=== PATIENT | female | born 1945 | race Caucasian/White ===

== ENCOUNTER → 2016-07-27 | Outpatient (CLI) | payer MEDICARE ==
--- NOTE | 2016-07-27 08:57 | Diagnostic Imaging Report ---
EXAMINATION: Bilateral screening mammogram TECHNIQUE: Screening digital mammography was performed bilaterally with a Computer Aided Detection (CAD) system. INDICATION: Screening. PERSONAL HISTORY: No current complaints stated on the questionnaire. COMPARISON: 07/24/2015. FINDINGS: The breasts are composed of scattered fibroglandular densities. There is a slightly more dense appearance of the breasts in the periareolar region. Punctate densities in both axilla are noted, probably related to deodorant use. No suspicious focal mass, architectural distortion, or suspicious cluster of calcification. IMPRESSION: There is evidence of symmetric periareolar skin thickening, slightly more prominent compared to the prior exam. Clinical correlation and a bilateral ultrasound evaluation would be recommended. ACR BI-RADS Category 0: Incomplete. (Needs additional imaging evaluation). Result letter will be mailed to the patient. Note: At least 10% of breast cancer is not imaged by mammography. Dictated by: Dictated on workstation # [id number]
== END ==
LOC: RAD 07:55
PROVIDERS: ATTEND Internal Medicine
DX: Z12.31 Encounter for screening mammogram for malignant neoplasm of breast (principal)
CPT/HCPCS: 77067

== ENCOUNTER → 2016-08-09 | Outpatient (CLI) | payer MEDICARE ==
--- NOTE | 2016-08-09 10:05 | Diagnostic Imaging Report ---
EXAMINATION: Bilateral breast ultrasound. INDICATION: Skin thickening seen in the periareolar region of the breasts on mammography. FINDINGS: The four-quadrants and retroareolar regions of each breast were scanned with no underlying abnormality seen. IMPRESSION: Negative study. Given the symmetry and the findings on mammography as well as the lack of ultrasound abnormal finding, the etiology is likely a benign skin related abnormality. Correlate clinically. ACR BI-RADS Category 1: Negative. Dictated by: Dictated on workstation # [id number]
== END ==
LOC: RAD 07:52
PROVIDERS: ATTEND Nurse Practitioner
DX: R92.8 Other abnormal and inconclusive findings on diagnostic imaging of breast (principal)

== ENCOUNTER → 2017-04-14 | Outpatient (CLI) | payer MEDICARE ==
--- NOTE | 2017-04-14 13:55 | Diagnostic Imaging Report ---
EXAM: PA view of the chest and 3 views of the right ribs. INDICATION: Right rib pain after a fall. FINDINGS: Chest radiograph demonstrates clear hyperinflated lungs with chronic appearing interstitial prominence. The heart size is at the upper limits of normal. There is the suggestion of a calcified granuloma in the left lung base. Three views of the right ribs demonstrate no fracture. IMPRESSION: COPD. No rib fracture is seen. Dictated by: Dictated on workstation # [id number]
--- NOTE | 2017-04-14 14:04 | Diagnostic Imaging Report ---
EXAMINATION: AP view of the pelvis and 2 views of the right hip. INDICATION: Fall. FINDINGS: There is no fracture or dislocation. No radiopaque foreign body. There is moderate degenerative changes at the hip joints and in the SI joints. Prominent vascular calcification seen. IMPRESSION: Degenerative changes. No fracture seen. Dictated by: Dictated on workstation # [id number]
== END ==
LOC: RAD 11:06
PROVIDERS: ATTEND Physician Assistant
DX: M16.11 Unilateral primary osteoarthritis, right hip (principal); J44.9 Chronic obstructive pulmonary disease, unspecified; W19.XXXA Unspecified fall, initial encounter
CPT/HCPCS: 71101

== ENCOUNTER → 2017-07-28 | Outpatient (CLI) | payer MEDICARE ==
--- NOTE | 2017-07-28 11:45 | Diagnostic Imaging Report ---
INDICATION: Routine screening. Comparison is made to prior exam from 07/27/2016 and 07/14/2015. The current study was also evaluated with a Computer Aided Detection (CAD) system. Scattered fibronodular densities are noted bilaterally. Benign calcifications are identified bilaterally. Retroareolar densities appear stable. No mass or malignant appearing microcalcifications are detected. Deodorant artifact in the axilla bilaterally is noted. IMPRESSION: BI-RADS category 2 No mammographic features suspicious for malignancy are identified. ACR BI-RADS Category 2: Benign findings. Result letter will be mailed to the patient. Note: At least 10% of breast cancer is not imaged by mammography. Dictated by: Dictated on workstation # [id number]
== END ==
LOC: RAD 09:46
PROVIDERS: ATTEND Internal Medicine
DX: Z12.31 Encounter for screening mammogram for malignant neoplasm of breast (principal)
CPT/HCPCS: 77067

== ENCOUNTER 2018-07-16 16:29 | Inpatient (IN) | payer MEDICARE ==
[~2018-07-16] VITALS: Ht 152.4 cm; Wt 43.2 kg
--- OUTSIDE RECORDS SUMMARY | 2018-07-16 16:34 | XMS REPORT | Continuity of Care Document ---
Author Author [facility] Organization [facility] Address Unknown Phone Unavailable Allergies Active Description Code Type Severity Reaction Onset Reported/Identified Relationship to Patient Clinical Status Yes No Known Drug Allergies [id number] Drug Allergy Unknown N/A 07/18/2008 Medications There is no data. Problems Date Dx Coded Attending Type Code Diagnosis Diagnosed By 11/17/2009 Ot 792.1 09/06/2014 CAT RAYMUNDO MD Ot V76.12 04/15/2015 Ot V76.12 04/15/2015 Ot V76.12 04/15/2015 Ot V76.12 04/15/2015 LARRY MCPHERSON APRN Ot V76.12 04/15/2015 CAT RAYMUNDO MD Ot V76.12 05/09/2015 LARRY MCPHERSON MARKET ANALYSIS DIRECTOR Ot M16.11 05/09/2015 LARRY MCPHERSON R MARKET ANALYSIS DIRECTOR Ot M47.892 05/09/2015 LARRY MCPHERSON R MARKET ANALYSIS DIRECTOR Ot M85.89 05/09/2015 LARRY MCPHEROSN R MARKET ANALYSIS DIRECTOR Ot S00.03XA 05/15/2015 VIDA LARRY R MARKET ANALYSIS DIRECTOR Ot M16.11 05/15/2015 VIDA LARRY R MARKET ANALYSIS DIRECTOR Ot M47.892 05/15/2015 LARRY MCPHERSON R MARKET ANALYSIS DIRECTOR Ot M85.89 05/15/2015 LARRY MCPHERSON R MARKET ANALYSIS DIRECTOR Ot S00.03XA 07/15/2015 LARRY MCPHERSON R MARKET ANALYSIS DIRECTOR Ot Z12.31 07/24/2015 LARRY MCPHERSON R MARKET ANALYSIS DIRECTOR Ot R92.8 08/06/2015 LARRY MCPHERSON MARKET ANALYSIS DIRECTOR Ot Z12.31 ENCNTR SCREEN MAMMOGRAM FOR MALIGNANT NE 12/02/2015 CAT RAYMUNDO MD Ot D69.6 THROMBOCYTOPENIA, UNSPECIFIED 12/02/2015 CAT RAYMUNDO MD Ot D72.819 DECREASED WHITE BLOOD CELL COUNT, UNSPEC 07/27/2016 Ot V76.12 OTH SCREEN MAMMO-MALIGN NEOPLASM OF MARKELL 07/27/2016 Ot V76.12 OTH SCREEN MAMMO-MALIGN NEOPLASM OF MARKELL 07/27/2016 LARRY MCPHERSON APRN Ot V76.12 OTH SCREEN MAMMO-MALIGN NEOPLASM OF MARKELL 07/27/2016 CAT RAYMUNDO MD Ot V76.12 OTH SCREEN MAMMO-MALIGN NEOPLASM OF [place]KELL 07/27/2016 LARRY MCPHERSON APRN Ot M16.11 UNILATERAL PRIMARY OSTEOARTHRITIS, RIGHT 07/27/2016 LARRY MCPHERSON APRN Ot M47.892 OTHER SPONDYLOSIS, CERVICAL REGION 07/27/2016 LARRY MCPHERSON APRN Ot M85.89 OTH DISRD OF BONE DENSITY AND STRUCTURE, 07/27/2016 LARRY MCPHERSON APRN Ot S00.03XA CONTUSION OF SCALP, INITIAL ENCOUNTER 07/27/2016 LARRY MCPHERSON APRN Ot Z12.31 ENCNTR SCREEN MAMMOGRAM FOR MALIGNANT NE 07/27/2016 LARRY MCPHERSON APRN Ot R92.8 OTH ABN AND INCONCLUSIVE FINDINGS ON DX 07/27/2016 CAT RAYMUNDO MD Ot D69.6 THROMBOCYTOPENIA, UNSPECIFIED 07/27/2016 CAT RAYMUNDO MD Ot D72.819 DECREASED WHITE BLOOD CELL COUNT, UNSPEC 07/27/2016 CAT RAYMUNDO MD Ot Z12.31 ENCNTR SCREEN MAMMOGRAM FOR MALIGNANT NE 07/27/2016 CAT RAYMUNDO MD Ot Z12.31 ENCNTR SCREEN MAMMOGRAM FOR MALIGNANT NE 07/27/2016 CAT RAYMUNDO MD Ot Z12.31 ENCNTR SCREEN MAMMOGRAM FOR MALIGNANT NE 07/27/2016 CAT RAYMUNDO MD Ot Z12.31 ENCNTR SCREEN MAMMOGRAM FOR MALIGNANT NE 07/28/2016 CAT RAYMUNDO MD Ot Z12.31 ENCNTR SCREEN MAMMOGRAM FOR MALIGNANT NE 08/06/2016 Ot V76.12 OTH SCREEN MAMMO-MALIGN NEOPLASM OF MARKELL 08/06/2016 Ot V76.12 OTH SCREEN MAMMO-MALIGN NEOPLASM OF MARKELL 08/06/2016 LARRY MCPHERSON APRN Ot V76.12 OTH SCREEN MAMMO-MALIGN NEOPLASM OF MARKELL 08/06/2016 CAT RAYMUNDO MD Ot V76.12 OTH SCREEN MAMMO-MALIGN NEOPLASM OF MARKELL 08/06/2016 LARRY MCPHERSON APRN Ot M16.11 UNILATERAL PRIMARY OSTEOARTHRITIS, RIGHT 08/06/2016 JB MCPHERSONN R MARKET ANALYSIS DIRECTOR Ot M47.892 OTHER SPONDYLOSIS, CERVICAL REGION 08/06/2016 VIDA LARRY Colmenares MARKET ANALYSIS DIRECTOR Ot M85.89 OTH DISRD OF BONE DENSITY AND STRUCTURE, 08/06/2016 VIDA LARRY Colmenares MARKET ANALYSIS DIRECTOR Ot S00.03XA CONTUSION OF SCALP, INITIAL ENCOUNTER 08/06/2016 LARRY MCPHERSON MARKET ANALYSIS DIRECTOR Ot Z12.31 ENCNTR SCREEN MAMMOGRAM FOR MALIGNANT NE 08/06/2016 LARRY MCPHERSON MARKET ANALYSIS DIRECTOR Ot R92.8 OTH ABN AND INCONCLUSIVE FINDINGS ON DX 08/06/2016 CAT RAYMUNDO MD Ot D69.6 THROMBOCYTOPENIA, UNSPECIFIED 08/06/2016 CAT RAYMUNDO MD Ot D72.819 DECREASED WHITE BLOOD CELL COUNT, UNSPEC 08/06/2016 CAT RAYMUNDO MD, Ot Z12.31 ENCNTR SCREEN MAMMOGRAM FOR MALIGNANT NE 08/06/2016 LARRY MCPHERSON MARKET ANALYSIS DIRECTOR Ot R92.2 INCONCLUSIVE MAMMOGRAM 08/06/2016 LARRY MCPHERSON MARKET ANALYSIS DIRECTOR Ot R92.2 INCONCLUSIVE MAMMOGRAM 08/09/2016 Ot V76.12 OTH SCREEN MAMMO-MALIGN NEOPLASM OF MARKELL 08/09/2016 Ot V76.12 OTH SCREEN MAMMO-MALIGN NEOPLASM OF MARKELL 08/09/2016 LARRY MCPHERSON MARKET ANALYSIS DIRECTOR Ot V76.12 OTH SCREEN MAMMO-MALIGN NEOPLASM OF MARKELL 08/09/2016 CAT RAYMUNDO MD Ot V76.12 OTH SCREEN MAMMO-MALIGN NEOPLASM OF MARKELL 08/09/2016 LARRY MCPHERSON MARKET ANALYSIS DIRECTOR Ot M16.11 UNILATERAL PRIMARY OSTEOARTHRITIS, RIGHT 08/09/2016 LARRY MCPHERSON MARKET ANALYSIS DIRECTOR Ot M47.892 OTHER SPONDYLOSIS, CERVICAL REGION 08/09/2016 LARRY MCPHERSON MARKET ANALYSIS DIRECTOR Ot M85.89 OTH DISRD OF BONE DENSITY AND STRUCTURE, 08/09/2016 LARRY MCPHERSON MARKET ANALYSIS DIRECTOR Ot S00.03XA CONTUSION OF SCALP, INITIAL ENCOUNTER 08/09/2016 LARRY MCPHERSON MARKET ANALYSIS DIRECTOR Ot Z12.31 ENCNTR SCREEN MAMMOGRAM FOR MALIGNANT NE 08/09/2016 LARRY MCPHERSON MARKET ANALYSIS DIRECTOR Ot R92.8 OTH ABN AND INCONCLUSIVE FINDINGS ON DX 08/09/2016 CAT RAYMUNDO MD Ot D69.6 THROMBOCYTOPENIA, UNSPECIFIED 08/09/2016 CAT RAYMUNDO MD, Ot D72.819 DECREASED WHITE BLOOD CELL COUNT, UNSPEC 08/09/2016 CAT RAYMUNDO MD Ot Z12.31 ENCNTR SCREEN MAMMOGRAM FOR MALIGNANT NE 08/09/2016 LARRY MCPHERSON APRN Ot R92.2 INCONCLUSIVE MAMMOGRAM 08/09/2016 LARRY MCPHERSON APRN Ot R92.2 INCONCLUSIVE MAMMOGRAM 08/11/2016 LARRY MCPHERSON APRN Ot R92.8 OTH ABN AND INCONCLUSIVE FINDINGS ON DX 08/17/2016 CAT RAYMUNDO MD Ot Z12.31 ENCNTR SCREEN MAMMOGRAM FOR MALIGNANT NE 09/03/2016 LARRY MCPHERSON APRN Ot R92.8 OTH ABN AND INCONCLUSIVE FINDINGS ON DX 09/14/2016 LARRY MCPHERSON APRN Ot R92.8 OTH ABN AND INCONCLUSIVE FINDINGS ON DX 05/05/2017 ARI PARRA Ot J44.9 CHRONIC OBSTRUCTIVE PULMONARY DISEASE, U 05/05/2017 ARI PARRA Ot M16.11 UNILATERAL PRIMARY OSTEOARTHRITIS, RIGHT 05/05/2017 ARI PARRA Ot W19.XXXA UNSPECIFIED FALL, INITIAL ENCOUNTER 05/11/2017 ARI PARRA Ot J44.9 CHRONIC OBSTRUCTIVE PULMONARY DISEASE, U 05/11/2017 ARI PARRA Ot M16.11 UNILATERAL PRIMARY OSTEOARTHRITIS, RIGHT 05/11/2017 ARI PARRA Ot W19.XXXA UNSPECIFIED FALL, INITIAL ENCOUNTER 07/28/2017 Ot V76.12 OTH SCREEN MAMMO-MALIGN NEOPLASM OF MARKELL 07/28/2017 LARRY MCPHERSON APRN Ot V76.12 OTH SCREEN MAMMO-MALIGN NEOPLASM OF MARKELL 07/28/2017 CAT RAYMUNDO MD Ot V76.12 OTH SCREEN MAMMO-MALIGN NEOPLASM OF MARKELL 07/28/2017 LARRY MCPHERSON APRN Ot M16.11 UNILATERAL PRIMARY OSTEOARTHRITIS, RIGHT 07/28/2017 LARRY MCPHERSON APRN Ot M47.892 OTHER SPONDYLOSIS, CERVICAL REGION 07/28/2017 LARRY MCPHERSON APRN Ot M85.89 OTH DISRD OF BONE DENSITY AND STRUCTURE, 07/28/2017 LARRY MCPHERSON APRN Ot S00.03XA CONTUSION OF SCALP, INITIAL ENCOUNTER 07/28/2017 LARRY MCPHERSON APRN Ot Z12.31 ENCNTR SCREEN MAMMOGRAM FOR MALIGNANT NE 07/28/2017 LARRY MCPHERSON APRN Ot R92.8 OTH ABN AND INCONCLUSIVE FINDINGS ON DX 07/28/2017 CAT RAYMUNDO MD Ot D69.6 THROMBOCYTOPENIA, UNSPECIFIED 07/28/2017 CAT RAYMUNDO MD Ot D72.819 DECREASED WHITE BLOOD CELL COUNT, UNSPEC 07/28/2017 CAT RAYMUNDO MD Ot Z12.31 ENCNTR SCREEN MAMMOGRAM FOR MALIGNANT NE 07/28/2017 LARRY MCPHERSON APRN Ot R92.8 OTH ABN AND INCONCLUSIVE FINDINGS ON DX 07/28/2017 ARI PARRA Ot J44.9 CHRONIC OBSTRUCTIVE PULMONARY DISEASE, U 07/28/2017 ARI PARRA Ot M16.11 UNILATERAL PRIMARY OSTEOARTHRITIS, RIGHT 07/28/2017 ARI PARRA Ot W19.XXXA UNSPECIFIED FALL, INITIAL ENCOUNTER 07/28/2017 CAT RAYMUNDO MD, Ot Z12.31 ENCNTR SCREEN MAMMOGRAM FOR MALIGNANT NE 07/29/2017 CAT RAYMUNDO MD Ot Z12.31 ENCNTR SCREEN MAMMOGRAM FOR MALIGNANT NE 08/17/2017 CAT RAYMUNDO MD, Ot Z12.31 ENCNTR SCREEN MAMMOGRAM FOR MALIGNANT NE Procedures There is no data. Results There is no data. Encounters ACCT No. Visit Date/Time Discharge Status Pt. Type Provider Facility Loc./Unit Complaint [id number] 07/28/2017 09:46:00 07/28/2017 23:59:59 CLS Outpatient CAT RAYMUNDO MD [facility] RAD SCREENING [id number] 04/14/2017 11:06:00 04/14/2017 23:59:59 CLS Outpatient ARI PARRA [facility] RAD R07.82, M25.551 [id number] 08/09/2016 07:52:00 08/09/2016 23:59:59 CLS Outpatient LARRY MCPHERSON APRN [facility] RAD R92.8 [id number] 07/27/2016 07:55:00 07/27/2016 23:59:59 CLS Outpatient CAT RAYMUNDO MD [facility] RAD SCREENING [id number] 11/11/2015 07:19:00 11/11/2015 23:59:59 CLS Outpatient CAT RAYMUNDO MD [facility] LAB THROMBOCYTOPENIA [id number] 07/24/2015 08:41:00 07/24/2015 23:59:59 CLS Outpatient LARRY MCPHERSON APRN [facility] RAD ABNORMAL MAMMO [id number] 07/14/2015 10:19:00 07/14/2015 23:59:59 CLS Outpatient LARRY MCPHERSON MARKET ANALYSIS DIRECTOR [facility] RAD SCREENING [id number] 04/15/2015 15:31:00 04/15/2015 23:59:59 CLS Outpatient LARRY MCPHERSON APRN [facility] RAD POST FALL AT HOME [id number] 07/10/2014 07:01:00 07/10/2014 23:59:59 CLS Outpatient CAT RAYMUNDO MD [facility] RAD SCREENING [id number] 07/09/2013 08:24:00 07/09/2013 23:59:59 CLS Outpatient LARRY MCPHERSON MARKET ANALYSIS DIRECTOR [facility] RAD ROUTINE [id number] 07/06/2012 06:39:00 Document Registration [id number] 07/01/2011 07:04:00 Document Registration [id number] 06/29/2010 06:57:00 Document Registration [id number] 11/17/2009 09:18:00 Document Registration
--- NOTE | 2018-07-16 17:15 | NUR ---
This RN cleaned up patient, copious amounts of stool stuck to patients inner thighs and coccyx. Large wound noted to coccyx, nonblanchable redness with several areas of open skin and black eschars noted within wound. No dressing placed at this time. Will await orders.
[2018-07-16] MEDS ORDERED: LACTATED RINGERS 1,000 ML IV ONE (18:09)
[2018-07-16 18:33] LABS: BASOPHILS % (AUTO) 0 % (0-10); EOSINOPHILS % (AUTO) 0 % (0-10); HEMATOCRIT 43 % (35-52); HEMOGLOBIN 14.6 G/DL (11.5-16.0); LYMPHOCYTES # (AUTO) 0.7 X 10^3 (1.0-4.0); LYMPHOCYTES % (AUTO) 9 % (12-44); MEAN CORPUSCULAR HEMOGLOBIN 35 PG (25-34); MEAN CORPUSCULAR HGB CONC 34 G/DL (32-36); MEAN CORPUSCULAR VOLUME 103 FL (80-99); MEAN PLATELET VOLUME 10.3 FL (7.4-10.4); MONOCYTES # (AUTO) 0.7 X 10^3 (0.0-1.0); MONOCYTES % (AUTO) 9 % (0-12); NEUTROPHILS # (AUTO) 5.8 X 10^3 (1.8-7.8); NEUTROPHILS % (AUTO) 81 % (42-75); PLATELET COUNT 133 10^3/uL (130-400); RED CELL DISTRIBUTION WIDTH 12.9 % (10.0-14.5); WHITE BLOOD COUNT 7.2 10^3/uL (4.3-11.0)
--- NOTE | 2018-07-16 18:35 | ED General ---
General Chief Complaint: General Problems/Pain Stated Complaint: DEHYDRATED,WEIGHT LOSS Nursing Triage Note: TO ED ACCOMPIED BY FRIEND AND SISTER IN LAW. PATIENT HAS NOT BEEN EATING HAS BEEN HAVING WT LOSS. ACCORDING TO FAMILY SHE HAS BEEN SITTING IN CHAIR UNSURE IF SHE HAS BEEN EATING NO ELECTRIC IN HOUSE LG DECUBI ON BUTTOCKS WITH DARK AREA. DRIED BM NOTED WITH DIRTY AREA. WAS FOUND OUT IN RAIN YEASTERDAY CONFUSED AND ADMITTED . [facility] DEPARTMENT WENT OUT YESTERDA TO DO WELL FAIR CHECK AND FOUND PATIENT SITTING IN CHAIR. UNKNOW WHNE SHE HAD ATE LAST. MED SPEC DEPARTMENT REPORT THAT FOOD HAD SPOLIED IN FRIGE. PATIENT UNALBE TO BEAR WT WHEN TRYING TO GET HER TO FROM W/C TO BED. PATIENT CLEANED WITH WIPES. Nursing Sepsis Screen: No Definite Risk Source of Information: Patient (VERY LIMITED HISTORIAN) Exam Limitations: Other ([id number] GIVES SOME LIMITED INFORMATION) History of Present Illness Date Seen by Provider: Jul 16, 2018 Time Seen by Provider: 18:00 Initial Comments PT ARRIVES VIA POV FROM HOME PT'S WAS ADMITTED YESTERDAY--WAS FOUND WANDERING ALONG THE HIGHWAY, IN RAIN, AND EXTREMELY COLD WEATHER ( IN 20'S-30'S OUTSIDE) AND HE WAS CONFUSED. PT'S [id number] INFORMED OF HIS ADMIT, AND WENT TO CHECK ON THIS PT YESTERDAY ( AND [facility]'S DEPT WAS THERE TO DO A WELL BEING CHECK ON PT, AFTER IT WAS DISCOVERED THAT WAS AND WAS AT HOME, WHILE HE WAS IN ER ) AND FOUND HER TO BE EXTREMELY WEAK, SITTING IN A CHAIR, AND LIVING IN EXTREMELY POOR CONDITIONS--NO ELECTRICITY, NO FOOD IN HOME--FOOD IN REFRIGERATOR APPEARED TO HAVE BEEN SPOILED FOR A VERY LONG TIME, EXTREMELY FILTHY LIVING CONDITIONS. IS UNKNOWN WHEN PT LAST ATE ANYTHING. PT TOO WEAK TO STAND, AND COVERED IN FECES IS UNKNOWN WHEN SHE LAST GOT OUT OF THE CHAIR PT HAD REFUSED TO COME TO HOSPITAL YESTERDAY TODAY, HER [id number] CAME TO HER HOUSE AND LITERALLY HAD TO PICK HER UP, AND BROUGHT HER HERE. PT DENIES PAIN ANYWHERE NO CHEST PAIN NO SHORTNESS OF BREATH HAS HAD A SLIGHT COUGH NO NAUSEA/VOMITING/DIARRHEA OR ABDOMINAL PAIN PT DID VOID JUST PRIOR TO COMING TO ER, AND ON DIRECT QUESTIONING, STATES THAT SHE HAS HAD SOME BURNING ON URINATION NO KNOWN FEVER NO PARESTHESIAS OR FOCAL MOTOR DEFICITS--PT WITH GENERALIZED WEAKNESS PT BRINGS IN 3 BOTTLES OF MEDICATIONS, AND CLAIMS THAT SHE HAS BEEN TAKING THEM EVERY DAY, BUT THIS IS NOT VERIFIED PCP: DR. RAYMUNDO--STATES SHE HAS NOT SEEN HIM "IN A LONG TIME" STATES SHE USED TO SEE DR. CORDON FOR NEUROLOGY,BUT NOT FOR A LONG TIME Allergies and Home Medications Allergies Coded Allergies: No Known Drug Allergies (Verified Allergy, Unknown, 07/18/08) Review of Systems Review of Systems Constitutional: weakness Respiratory: cough; No short of breath Cardiovascular: No chest pain Gastrointestinal: no symptoms reported Genitourinary: see HPI Musculoskeletal: no symptoms reported Skin: other (LARGE DECUBITUS ON BUTTOCKS) Psychiatric/Neurological: Denies Numbness, Denies Paresthesia Past Ichzeyn-Cfrkvx-Wtufzo Hx Patient Social History Alcohol Use: Denies Use Recreational Drug Use: No Smoking Status: Current Everyday Smoker (1 PPD) Type Used: Cigarettes Recent Foreign Travel: No Contact w/Someone Who Travel: No Recent Infectious Disease Expo: No Past Medical History Surgeries: Yes (SURGERY FOR TRIGEMINAL NEURALGIA) Tonsillectomy Respiratory: No Cardiac: Yes High Cholesterol, Hypertension Neurological: Yes (RIGHT TRIGMENINAL NEURALGIA) Reproductive Disorders: No Genitourinary: No Gastrointestinal: No Musculoskeletal: No Endocrine: No HEENT: Yes (RIGHT TRIGEMINAL NEURALGIA) Cancer: No Psychosocial: No Integumentary: No Blood Disorders: No Physical Exam Vital Signs Vital Signs - First Documented 07/16/18 16:52 Temp 96.8 Pulse 55 Resp 18 B/P (MAP) 151/87 (108) Pulse Ox 98 O2 Delivery Room Air Capillary Refill : Less Than 3 Seconds Height, Weight, BMI Height: 5'" Weight: 110lbs. oz. 49.769448hi; BMI Method:Estimated General Appearance: Cachetic, Other (VERY UNKEMPT, GENERALIZED WEAKNESS/ LETHARGIC, COVERED IN FECES, FRONTAL HAIR SINGED--PT DENIES ANY FLAME/FIRE AND HAS NO IDEA HOW THAT OCCURRED, DENIES BEING BURNED) HEENT: PERRL/EOMI, Other (ORAL MUCOSA DRY, POOR ORAL HYGIENE) Neck: Full Range of Motion, Normal Inspection, Non Tender, Supple; No Carotid Bruit, No JVD Respiratory: Normal Breath Sounds, No Accessory Muscle Use, No Respiratory Distress Cardiovascular: Regular Rate, Rhythm, No Edema, No JVD, No Murmur, Normal Peripheral Pulses Gastrointestinal: Normal Bowel Sounds, No Organomegaly, No Pulsatile Mass, Non Tender, Soft Back: Normal Inspection, No CVA Tenderness Extremity: Normal Capillary Refill, Normal Inspection, Normal Range of Motion, Non Tender, No Calf Tenderness, No Pedal Edema Neurologic/Psychiatric: Alert, No Motor/Sensory Deficits (BUT WITH GENERALIZED WEAKNESS--EQUAL BILATERALLY. TOO WEAK TO STAND OR EVEN ROLL OVER OR MOVE ON ER CART), Normal Mood/Affect (SMILING, PLEASANT), information assurance manager II-XII Norm as Tested, Other (ORIENTED TO PERSON, PLACE--GROSSLY ORIENTED TO SITUATION, BUT SOMEWHAT CONFUSED TO TIME, VERY POOR MEMORY) Skin: Normal Color, Warm/Dry, Other (LARGE DECUBITUS ON BUTTOCKS--ENTIRE BUTTOCKS AND SACRAL AREA INVOLVED--AT MINIMUM A STAGE 2, AND IS UNSTAGEABLE AT THIS TIME, THERE ARE MULTIPLE AREAS OF NECROTIC TISSUE, WITH DIFFUSE WEEPING. FECES EMBEDDED IN WOUNDS ) Focused Exam Lactate Level 07/16/18 18:30: Lactic Acid Level 1.09 Lactic Acid Level Laboratory Tests Test 07/16/18 18:30 Lactic Acid Level 1.09 MMOL/L (0.50-2.00) Progress/Results/Core Measures Suspected Sepsis Recent Fever Within 48 Hours: No Infection Criteria Present: None New/Unexplained Altered Menta: No Sepsis Screen: No Definite Risk SIRS Temperature:96.8 Pulse: 55 Respiratory Rate: 18 Laboratory Tests 07/16/18 18:00: White Blood Count 7.2 Blood Pressure 151 /87 Mean: 108 07/16/18 18:30: Lactic Acid Level 1.09 Laboratory Tests 07/16/18 18:00: Creatinine 0.85, INR Comment 1.2, Platelet Count 133, Total Bilirubin 0.7 Results/Orders Lab Results Laboratory Tests Test 07/16/18 18:00 07/16/18 18:30 07/16/18 18:35 07/16/18 18:51 Range/Units White Blood Count 7.2 4.3-11.0 10^3/uL Red Blood Count 4.21 L 4.35-5.85 10^6/uL Hemoglobin 14.6 11.5-16.0 G/DL Hematocrit 43 35-52 % Mean Corpuscular Volume 103 H 80-99 FL Mean Corpuscular Hemoglobin 35 H 25-34 PG Mean Corpuscular Hemoglobin Concent 34 32-36 G/DL Red Cell Distribution Width 12.9 10.0-14.5 % Platelet Count 133 130-400 10^3/uL Mean Platelet Volume 10.3 7.4-10.4 FL Neutrophils (%) (Auto) 81 H 42-75 % Lymphocytes (%) (Auto) 9 L 12-44 % Monocytes (%) (Auto) 9 0-12 % Eosinophils (%) (Auto) 0 0-10 % Basophils (%) (Auto) 0 0-10 % Neutrophils # (Auto) 5.8 1.8-7.8 X 10^3 Lymphocytes # (Auto) 0.7 L 1.0-4.0 X 10^3 Monocytes # (Auto) 0.7 0.0-1.0 X 10^3 Eosinophils # (Auto) 0.0 0.0-0.3 10^3/uL Basophils # (Auto) 0.0 0.0-0.1 10^3/uL Prothrombin Time 15.4 H 12.2-14.7 SEC INR Comment 1.2 0.8-1.4 Activated Partial Thromboplast Time 31 24-35 SEC Sodium Level 142 135-145 MMOL/L Potassium Level 3.2 L 3.6-5.0 MMOL/L Chloride Level 102 98-107 MMOL/L Carbon Dioxide Level 24 21-32 MMOL/L Anion Gap 16 H 5-14 MMOL/L Blood Urea Nitrogen 17 7-18 MG/DL Creatinine 0.85 0.60-1.30 MG/DL Estimat Glomerular Filtration Rate > 60 BUN/Creatinine Ratio 20 Glucose Level 96 70-105 MG/DL Calcium Level 9.6 8.5-10.1 MG/DL Corrected Calcium 9.8 8.5-10.1 MG/DL Magnesium Level 2.0 1.8-2.4 MG/DL Total Bilirubin 0.7 0.1-1.0 MG/DL Aspartate Amino Transf (AST/SGOT) 17 5-34 U/L Alanine Aminotransferase (ALT/SGPT) 10 0-55 U/L Alkaline Phosphatase 60 40-136 U/L Total Creatine Kinase 87 29-168 U/L Creatine Kinase MB 4.4 <6.6 NG/ML Troponin I 0.092 H <0.028 NG/ML B-Type Natriuretic Peptide 110.1 H <100.0 PG/ML Total Protein 6.7 6.4-8.2 GM/DL Albumin 3.7 3.2-4.5 GM/DL Amylase Level 34 25-125 U/L Lipase 23 8-78 U/L TSH [place] Testing 2.32 0.35-4.94 UIU/ML Acetaminophen Level < 10 L 10-30 UG/ML Carbamazepine (Tegretol) Level 5.2 4.0-12.0 UG/ML Serum Alcohol < 10 <10 MG/DL Lactic Acid Level 1.09 0.50-2.00 MMOL/L Ammonia 20 11-32 UMOL/L Urine Color DARK YELLOW Urine Clarity SLIGHTLY CLOUDY Urine pH 5 5-9 Urine Specific [place] 1.025 H 1.016-1.022 Urine Protein 2+ H NEGATIVE Urine Glucose (UA) NEGATIVE NEGATIVE Urine Ketones 2+ H NEGATIVE Urine Nitrite NEGATIVE NEGATIVE Urine Bilirubin 1+ H NEGATIVE Urine Urobilinogen 4 H NORMAL MG/DL Urine Leukocyte Esterase 1+ H NEGATIVE Urine RBC (Auto) 1+ H NEGATIVE Urine RBC RARE /HPF Urine WBC RARE /HPF Urine Squamous Epithelial Cells 0-2 /HPF Urine Crystals NONE /LPF Urine Bacteria NEGATIVE /HPF Urine Casts NONE /LPF Urine Mucus SMALL H /LPF Urine Culture Indicated NO Urine Opiates Screen NEGATIVE NEGATIVE Urine Oxycodone Screen NEGATIVE NEGATIVE Urine Methadone Screen NEGATIVE NEGATIVE Urine Propoxyphene Screen NEGATIVE NEGATIVE Urine Barbiturates Screen NEGATIVE NEGATIVE Ur Tricyclic Antidepressants Screen NEGATIVE NEGATIVE Urine Phencyclidine Screen NEGATIVE NEGATIVE Urine Amphetamines Screen NEGATIVE NEGATIVE Urine Methamphetamines Screen NEGATIVE NEGATIVE Urine Benzodiazepines Screen NEGATIVE NEGATIVE Urine Cocaine Screen NEGATIVE NEGATIVE Urine Cannabinoids Screen NEGATIVE NEGATIVE Test 07/16/18 18:57 Range/Units Glucometer 99 70-110 MG/DL Micro Results Microbiology 07/16/18 Influenza Types A,B Antigen (RAMESH) - Final, Complete My Orders Orders - SUE BRITO DO Chest 1 View, Ap/Pa Only (07/16/18 18:09) Pelvis (07/16/18 18:09) Acetaminophen (07/16/18 18:09) Alcohol (07/16/18 18:09) Amylase (07/16/18 18:09) BNP (07/16/18 18:09) Cbc With Automated Diff (07/16/18 18:09) Comprehensive Metabolic Panel (07/16/18 18:09) Creatine Kinase (07/16/18 18:09) Creatine Kinase Mb (07/16/18 18:09) Drug Screen Stat (Urine) (07/16/18 18:09) Lactic Acid Analyzer (07/16/18 18:09) Lipase (07/16/18 18:09) Magnesium (07/16/18 18:09) Protime With Inr (07/16/18 18:09) Partial Thromboplastin Time (07/16/18 18:09) Thyroid Analyzer (07/16/18 18:09) Troponin I (07/16/18 18:09) Ua Culture If Indicated (07/16/18 18:09) Blood Culture (07/16/18 18:09) Influenza A And B Antigens (07/16/18 18:09) Saline Lock/Iv-Start (07/16/18 18:09) Lactated Ringers (Lr 1000 Ml Iv Solution (07/16/18 18:09) Accucheck Stat ONCE (07/16/18 18:09) Saline Lock/Iv-Start (07/16/18 18:09) Ekg Tracing (07/16/18 18:09) Catheter(Urinary) Insert & Ass 03,15 (07/16/18 18:09) Monitor-Rhythm Ecg Trace Only (07/16/18 18:09) Carbamazepine (Tegretol) (07/16/18 18:43) Ammonia (07/16/18 19:03) Ceftriaxone For Iv Use (Rocephin For I (07/16/18 19:30) Ceftriaxone For Im Use (Rocephin For Im (07/16/18 19:38) Medications Given in ED Current Medications Medications Dose Ordered Sig/John Route Start Time Stop Time Status Last Admin Dose Admin Lactated Ringer's 1,000 ml @ 0 mls/hr Q0M ONCE IV 07/16/18 18:09 07/16/18 18:24 DC 07/16/18 18:35 1,000 MLS/HR Vital Signs/I&O 07/16/18 16:52 Temp 96.8 Pulse 55 Resp 18 B/P (MAP) 151/87 (108) Pulse Ox 98 O2 Delivery Room Air Capillary Refill : Less Than 3 Seconds Blood Pressure Mean: 108 ECG Initial ECG Impression Date: Jul 16, 2018 Initial ECG Impression Time: 18:27 Initial ECG Rate: 52 Initial ECG Impression: Nonspecific Changes Diagnostic Imaging Comments CXR--NO ACUTE PROCESS PELVIS XRAY--NO ACUTE PROCESS PER RADIOLOGIST REPORTS @ 1945 Reviewed: Reviewed by Me Departure Communication (Admissions) 1924--SPOKE WITH DR. BAE, HOSPITALIST, ACCEPTS PT FOR ADMIT Impression Primary Impression: Generalized weakness Additional Impressions: Decubitus ulcer of buttock, unstageable Emaciation UTI (urinary tract infection) INABILITIY TO CARE FOR SELF POOR LIVING CONDITIONS SLIGHT ELEVATION OF TROPONIN Mild dehydration Departure-Patient Inst. Referrals: CAT RAYMUNDO MD (PCP/Family) Primary Care Physician SUE BRITO DO Jul 16, 2018 18:35
[2018-07-16 18:39] LABS: INR 1.2 (0.8-1.4); PROTHROMBIN TIME PATIENT 15.4 SEC (12.2-14.7)
[2018-07-16 18:48] LABS: ALANINE AMINOTRANSFERASE 10 U/L (0-55); ALBUMIN 3.7 GM/DL (3.2-4.5); ALKALINE PHOSPHATASE 60 U/L (40-136); AMYLASE 34 U/L (25-125); BILIRUBIN,TOTAL 0.7 MG/DL (0.1-1.0); BUN/CREATININE RATIO 20; CALCIUM 9.6 MG/DL (8.5-10.1); CARBON DIOXIDE 24 MMOL/L (21-32); CHLORIDE 102 MMOL/L (98-107); CREATINE KINASE 87 U/L (29-168); CREATININE SERUM 0.85 MG/DL (0.60-1.30); GFR ESTIMATED > 60; GLUCOSE 96 MG/DL (70-105); LIPASE 23 U/L (8-78); POTASSIUM 3.2 MMOL/L (3.6-5.0); SODIUM 142 MMOL/L (135-145); TOTAL PROTEIN 6.7 GM/DL (6.4-8.2)
[2018-07-16] MEDS ORDERED: AMLO5TAB9 PO (18:48)
[2018-07-16] MEDS ORDERED: CARB200T PO (18:48)
[2018-07-16] MEDS ORDERED: SIMV40TA4 PO (18:48)
[2018-07-16] MEDS ORDERED: ATEN50TA PO (18:48)
[2018-07-16 18:50] LABS: ACETAMINOPHEN < 10 UG/ML (10-30)
[2018-07-16 18:59] LABS: CLARITY,URINE SLIGHTLY CLOUDY; GLUCOSE, URINE (UA) NEGATIVE (NEGATIVE); KETONES,URINE 2+ (NEGATIVE); LEUKOCYTE ESTERASE ,URINE 1+ (NEGATIVE); NITRITE,URINE NEGATIVE (NEGATIVE); PH,URINE 5 (5-9); PROTEIN,URINE 2+ (NEGATIVE); UROBILINOGEN,URINE 4 MG/DL (NORMAL)
[2018-07-16 19:07] LABS: BILIRUBIN,URINE 1+ (NEGATIVE); COLOR,URINE DARK YELLOW
[2018-07-16 19:08] LABS: CREATINE KINASE MB 4.4 NG/ML (<6.6); TSH (THYROID ANALYZER) 2.32 UIU/ML (0.35-4.94)
[2018-07-16 19:09] LABS: BACTERIA,URINE NEGATIVE /HPF; RBC,URINE RARE /HPF; SQUAMOUS EPITHELIAL CELL,UR 0-2 /HPF; WBC,URINE RARE /HPF
[2018-07-16 19:10] LABS: AMPHETAMINE SCREEN, URINE NEGATIVE (NEGATIVE); BARBITURATE SCREEN URINE NEGATIVE (NEGATIVE); BENZODIAZEPINES SCREEN URINE NEGATIVE (NEGATIVE); CANNABINOID SCREEN, URINE NEGATIVE (NEGATIVE); COCAINE SCREEN URINE NEGATIVE (NEGATIVE); METHADONE STAT NEGATIVE (NEGATIVE); METHAMPHETAMINE SCREEN URINE S NEGATIVE (NEGATIVE); OPIATE SCREEN URINE NEGATIVE (NEGATIVE); OXYCODONE STAT NEGATIVE (NEGATIVE); PROPOXYPHENE STAT NEGATIVE (NEGATIVE); TRICYCLIC ANTIDEPRESSANTS SCRE NEGATIVE (NEGATIVE)
[2018-07-16] MEDS ORDERED: cefTRIAXone FOR IV USE 1,000 MG in WATER (STERILE) FOR INJECTION 10 ML IV ONE (19:30)
--- NOTE | 2018-07-16 19:37 | NUR ---
PT RETURNS FROM CT DEPT IN STABLE CONDITION, NO S/S OF DISTRESS
[2018-07-16] MEDS ORDERED: cefTRIAXone 1,000 MG/2.86 ml vial (IM ONLY) ONE (19:38)
--- NOTE | 2018-07-16 19:38 | Diagnostic Imaging Report ---
INDICATION: Fell one week ago. Chest pain A single view of the chest shows normal heart size and vascularity. The lungs are clear. There is no effusion or pneumothorax. There is no acute bony abnormality. IMPRESSION: No acute abnormality is seen. Dictated by: Dictated on workstation # [id number]
--- NOTE | 2018-07-16 19:39 | Diagnostic Imaging Report ---
INDICATION: Fall, pelvic pain A single view of the pelvis shows no fracture, dislocation or other abnormality. IMPRESSION: No acute abnormality is seen. Dictated by: Dictated on workstation # [id number]
--- OUTSIDE RECORDS SUMMARY | 2018-07-16 19:43 | XMS REPORT | Continuity of Care Document ---
Author Author [facility] Organization [facility] Address Unknown Phone Unavailable Allergies Active Description Code Type Severity Reaction Onset Reported/Identified Relationship to Patient Clinical Status Yes No Known Drug Allergies [id number] Drug Allergy Unknown N/A 07/18/2008 Medications There is no data. Problems Date Dx Coded Attending Type Code Diagnosis Diagnosed By 11/17/2009 Ot 792.1 09/06/2014 CAT RAYMUNDO MD Ot V76.12 04/15/2015 Ot V76.12 04/15/2015 Ot V76.12 04/15/2015 Ot V76.12 04/15/2015 LARRY MCPHERSON APRN Ot V76.12 04/15/2015 CAT RAYMUNDO MD Ot V76.12 05/09/2015 LARRY MCPHERSON REAL ESTATE SALESPERSON Ot M16.11 05/09/2015 LARRY MCPHERSON R REAL ESTATE SALESPERSON Ot M47.892 05/09/2015 LARRY MCPHERSON R REAL ESTATE SALESPERSON Ot M85.89 05/09/2015 LARRY MCPHERSON R REAL ESTATE SALESPERSON Ot S00.03XA 05/15/2015 VIDA LARRY R REAL ESTATE SALESPERSON Ot M16.11 05/15/2015 VIDA LARRY R REAL ESTATE SALESPERSON Ot M47.892 05/15/2015 LARRY MCPHERSON R REAL ESTATE SALESPERSON Ot M85.89 05/15/2015 LARRY MCPHERSON R REAL ESTATE SALESPERSON Ot S00.03XA 07/15/2015 LARRY MCPHERSON R REAL ESTATE SALESPERSON Ot Z12.31 07/24/2015 LARRY MCPHERSON R REAL ESTATE SALESPERSON Ot R92.8 08/06/2015 LARRY MCPHERSON REAL ESTATE SALESPERSON Ot Z12.31 ENCNTR SCREEN MAMMOGRAM FOR MALIGNANT [...] PRIMARY OSTEOARTHRITIS, RIGHT 08/06/2016 JB MCPHERSONN R REAL ESTATE SALESPERSON Ot M47.892 OTHER SPONDYLOSIS, CERVICAL REGION 08/06/2016 VIDA LARRY Colmenares REAL ESTATE SALESPERSON Ot M85.89 OTH DISRD OF BONE DENSITY AND STRUCTURE, 08/06/2016 VIDA LARRY Colmenares REAL ESTATE SALESPERSON Ot S00.03XA CONTUSION OF SCALP, INITIAL ENCOUNTER 08/06/2016 LARRY MCPHERSON REAL ESTATE SALESPERSON Ot Z12.31 ENCNTR SCREEN MAMMOGRAM FOR MALIGNANT NE 08/06/2016 LARRY MCPHERSON REAL ESTATE SALESPERSON Ot R92.8 OTH ABN AND INCONCLUSIVE FINDINGS ON DX 08/06/2016 CAT RAYMUNDO MD Ot D69.6 THROMBOCYTOPENIA, UNSPECIFIED 08/06/2016 CAT RAYMUNDO MD Ot D72.819 DECREASED WHITE BLOOD CELL COUNT, UNSPEC 08/06/2016 CAT RAYMUNDO MD, Ot Z12.31 ENCNTR SCREEN MAMMOGRAM FOR MALIGNANT NE 08/06/2016 LARRY MCPHERSON REAL ESTATE SALESPERSON Ot R92.2 INCONCLUSIVE MAMMOGRAM 08/06/2016 LARRY MCPHERSON REAL ESTATE SALESPERSON Ot R92.2 INCONCLUSIVE MAMMOGRAM 08/09/2016 Ot V76.12 OTH SCREEN MAMMO-MALIGN NEOPLASM OF [place] 08/09/2016 Ot V76.12 OTH SCREEN MAMMO-MALIGN NEOPLASM OF [place] 08/09/2016 LARRY MCPHERSON REAL ESTATE SALESPERSON Ot V76.12 OTH SCREEN MAMMO-MALIGN NEOPLASM OF [place] 08/09/2016 CAT RAYMUNDO MD Ot V76.12 OTH SCREEN MAMMO-MALIGN NEOPLASM OF [place] 08/09/2016 LARRY MCPHERSON REAL ESTATE SALESPERSON Ot M16.11 UNILATERAL PRIMARY OSTEOARTHRITIS, RIGHT 08/09/2016 LARRY MCPHERSON REAL ESTATE SALESPERSON Ot M47.892 OTHER SPONDYLOSIS, CERVICAL REGION 08/09/2016 LARRY MCPHERSON REAL ESTATE SALESPERSON Ot M85.89 OTH DISRD OF BONE DENSITY AND STRUCTURE, 08/09/2016 LARRY MCPHERSON REAL ESTATE SALESPERSON Ot S00.03XA CONTUSION OF SCALP, INITIAL ENCOUNTER 08/09/2016 LARRY MCPHERSON REAL ESTATE SALESPERSON Ot Z12.31 ENCNTR SCREEN MAMMOGRAM FOR MALIGNANT NE 08/09/2016 LARRY MCPHERSON REAL ESTATE SALESPERSON Ot R92.8 OTH ABN AND INCONCLUSIVE FINDINGS [...] Status Pt. Type Provider Facility Loc./Unit Complaint [id number] 07/28/2017 09:46:00 07/28/2017 23:59:59 CLS Outpatient CAT RAYMUNDO MD [facility] RAD SCREENING [id number] 04/14/2017 11:06:00 04/14/2017 23:59:59 CLS Outpatient ARI PARRA [facility] RAD R07.82, M25.551 [id number] 08/09/2016 07:52:00 08/09/2016 23:59:59 CLS Outpatient LARRY MCPHERSON APRN [facility] RAD R92.8 [id number] 07/27/2016 07:55:00 07/27/2016 23:59:59 CLS Outpatient CAT RAYMUNDO MD [facility] RAD SCREENING [id number] 11/11/2015 07:19:00 11/11/2015 23:59:59 CLS Outpatient CAT RAYMUNDO MD [facility] LAB THROMBOCYTOPENIA [id number] 07/24/2015 08:41:00 07/24/2015 23:59:59 CLS Outpatient LARRY MCPHERSON APRN [facility] RAD ABNORMAL MAMMO [id number] 07/14/2015 10:19:00 07/14/2015 23:59:59 CLS Outpatient LARRY MCPHERSON REAL ESTATE SALESPERSON [facility] RAD SCREENING [id number] 04/15/2015 15:31:00 04/15/2015 23:59:59 CLS Outpatient LARRY MCPHERSON APRN [facility] RAD POST FALL AT HOME [id number] 07/10/2014 07:01:00 07/10/2014 23:59:59 CLS Outpatient CAT RAYMUNDO MD [facility] RAD SCREENING [id number] 07/09/2013 08:24:00 07/09/2013 23:59:59 CLS Outpatient LARRY MCPHERSON REAL ESTATE SALESPERSON [facility] RAD ROUTINE [id number] 07/06/2012 06:39:00 Document Registration [id number] 07/01/2011 07:04:00 Document Registration [id number] 06/29/2010 06:57:00 Document Registration [id number] 11/17/2009 09:18:00 Document Registration
[2018-07-16 20:35] VITALS: BP 116/93
[2018-07-16] MEDS ORDERED: KETOROLAC 15 MG/ML VIAL IV ONE (20:45)
[2018-07-16 20:53] VITALS: BP 147/85
[2018-07-16] MEDS ORDERED: CATHETER FLUSH 10 ML SYR IV PRN (21:00)
[2018-07-16] MEDS: D5 1/2 NS W/KCL 20 MEQ/L 1,000 ML IV SCH (21:00)
[2018-07-16 22:00] VITALS: BP 145/92
[2018-07-17] VITALS (8 sets, daily range): BP systolic 118–168; BP diastolic 69–108
[2018-07-17] MEDS: CATHETER FLUSH 10 ML SYR IV SCH ×4 (01:46→22:10)
[2018-07-17 04:08] LABS: BASOPHILS % (AUTO) 0 % (0-10); EOSINOPHILS % (AUTO) 0 % (0-10); HEMATOCRIT 39 % (35-52); LYMPHOCYTES # (AUTO) 0.8 X 10^3 (1.0-4.0); LYMPHOCYTES % (AUTO) 11 % (12-44); MEAN CORPUSCULAR HEMOGLOBIN 35 PG (25-34); MEAN CORPUSCULAR HGB CONC 34 G/DL (32-36); MEAN CORPUSCULAR VOLUME 104 FL (80-99); MEAN PLATELET VOLUME 9.8 FL (7.4-10.4); MONOCYTES # (AUTO) 0.7 X 10^3 (0.0-1.0); MONOCYTES % (AUTO) 10 % (0-12); NEUTROPHILS # (AUTO) 5.4 X 10^3 (1.8-7.8); NEUTROPHILS % (AUTO) 78 % (42-75); PLATELET COUNT 119 10^3/uL (130-400); RED CELL DISTRIBUTION WIDTH 12.7 % (10.0-14.5); WHITE BLOOD COUNT 6.9 10^3/uL (4.3-11.0)
[2018-07-17 04:19] LABS: ALANINE AMINOTRANSFERASE 7 U/L (0-55); ALBUMIN 3.1 GM/DL (3.2-4.5); ALKALINE PHOSPHATASE 48 U/L (40-136); BILIRUBIN,TOTAL 0.4 MG/DL (0.1-1.0); BUN/CREATININE RATIO 18; CALCIUM 8.9 MG/DL (8.5-10.1); CARBON DIOXIDE 22 MMOL/L (21-32); CHLORIDE 104 MMOL/L (98-107); CREATININE SERUM 0.85 MG/DL (0.60-1.30); GFR ESTIMATED > 60; GLUCOSE 149 MG/DL (70-105); POTASSIUM 3.4 MMOL/L (3.6-5.0); SODIUM 138 MMOL/L (135-145); TOTAL PROTEIN 5.7 GM/DL (6.4-8.2)
[2018-07-17] MEDS: D5 1/2 NS W/KCL 20 MEQ/L 1,000 ML IV SCH ×3 (05:00→23:05)
[2018-07-17] MEDS ORDERED: FLU QUADRIvalent (5+ YOA) 2018-2019 (AFLURIA) 0.5 ML IM ONE (08:30)
--- NOTE | 2018-07-17 09:45 | NUR ---
REPORT RECEIVED FROM [place] [facility].
--- NOTE | 2018-07-17 10:00 | NUR ---
PATIENT IN ROOM, PATIENT ASSESSED, CALL LIGHT WITHIN REACH. WILL CONTINUE TO MONITOR.
[2018-07-17] MEDS ORDERED: LOPE-145 PO (10:19)
--- NOTE | 2018-07-17 10:30 | NUR ---
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
--- NOTE | 2018-07-17 10:57 | NUR ---
CM/SS responded to consult for SS. Patient was dozing in and out of sleep. Spoke mostly with Shelly Abad (Sister in Law, ). She stated that she did not realize how bad the home conditions were as when they were able to get around they would always tell everyone they would swing by. Shelly stated that she would call often to check on Rachel and Wilder (Slick Wilder Sebastien, patient's ) and that she could tell that Wilder's mind was slipping. The couple has no children themselves but Wilder has two daughters from previous marriage. Wilder's brother will be in later this day.
--- NOTE | 2018-07-17 14:46 | History & Physical-Hospitalist ---
History of Present Illness HPI/Chief Complaint The patient is a 73-year-old white female who was admitted yesterday. Her had been admitted on Tuesday after having been observed by the neighbors to be walking about in a confused fashion in the rain. The family was notified at that time. They came in from out of town to check on her and found her to be in a terrible mess. The electricity had been turned off in their home. One of the family member states that she had not been in the home for about 5 years in the decline in up keep was quite disturbing. The food in the refrigerator had become stinky garbage. She had been incontinent of stool and urine. She has not been eating well for some months and had lost a good deal of weight. She was found to have multiple sores on her perineum of indeterminate age. She too had become very confused. Date Seen 07/17/18 Time Seen by a Provider: 14:44 Attending Physician Carmina Henry MD PCP Padilla Townsend MD Referring Physician Date of Admission Jul 16, 2018 at 19:25 Home Medications & Allergies Home Medications Reviewed patient Home Medication Reconciliation performed by pharmacy medication reconciliations gastrointestinal technician and/or nursing. Patients Allergies have been reviewed. Allergies Allergies Coded Allergies No Known Drug Allergies (Verified07/18/08) Past Jtjkiwf-Hetyyn-Regxhx Hx Patient Social History Alcohol Use: Denies Use Recreational Drug Use: No Smoking Status: Current Everyday Smoker (1 PPD) Type Used: Cigarettes Recent Foreign Travel: No Contact w/other who traveled: No Recent Infectious Disease Expo: No Past Medical History Surgeries: Tonsillectomy Cardiac: High Cholesterol, Hypertension Reproductive: No History of Blood Disorders: No Review of Systems ROS-Unable to Obtain: the patient was very confused and unable to give any useful history. Constitutional: see HPI Physical Exam Physical Exam Vital Signs Vital Signs - First Documented 07/16/18 16:52 Temp 96.8 Pulse 55 Resp 18 B/P (MAP) 151/87 (108) Pulse Ox 98 O2 Delivery Room Air Capillary Refill : Less Than 3 SecondsLess Than 3 Seconds Height, Weight, BMI Height: 5'0.00" Weight: 95lbs. 5.0oz. 43.792164vx; 18.6 BMI Method:Estimated General Appearance: Thin, Other (seemed to be suspicious and secretive when questioned) Eyes: Bilateral Eye Normal Inspection HEENT: Normal ENT Inspection Respiratory: Chest Non Tender, Lungs Clear, Normal Breath Sounds, No Accessory Muscle Use, No Respiratory Distress, Other (ribs apparent) Cardiovascular: Regular Rate, Rhythm, No Edema Gastrointestinal: Normal Bowel Sounds Genital/Rectal: Other (perineum was soiled at exam but several superficial areas of skin breakdown were noted.) Extremity: Normal Capillary Refill, Normal Inspection, Normal Range of Motion, Other Results Results/Procedures Labs Laboratory Tests 07/16/18 18:00 07/17/18 03:45 07/17/18 04:00 Patient resulted labs reviewed. Assessment/Plan Admission Diagnosis Severe dementia. 2.weight loss. 3.decubitus sores about the low gluteal cleft Admission Status: Observation Clinical Quality Measures DVT/VTE Risk/Contraindication: Risk Factor Score Per Nursin RFS Level Per Nursing on Admit: 4+=Very High ENID CAMPA MD Jul 17, 2018 14:46
--- NOTE | 2018-07-17 17:37 | Consultation-Cardiology ---
HPI-Cardiology Cardiology Consultation: Date of Consultation 07/17/18 Date of Admission Attending Physician Carmina Henry MD Admitting Physician Padilla Townsend MD Consulting Physician Andrew ROSE MD HPI: Time Seen by a Provider: 17:37 Chief Complaint: Bradycardia, positive troponin This is a 73-year-old female who was admitted couple of days ago when her was found to be walking in a confused fashion. The police was involved and she was found in the house in significant unclean situation. There has been significant decline in dementia. History is limited. Cardiology was consulted for borderline positive troponin and bradycardia. The patient has history of hypertension and was on atenolol. However we are unclear when she did take atenolol. Review of Systems-Cardiology Review of Systems Constitutional: As described under HPI; No As described under HPI, No no symptoms reported, No chills, No fever, No lightheadedness Eyes: No As described under HPI, No no symptoms reported, No blindness, No blurred vision, No contact lenses, No drainage, No decreased acuity, No foreign body sensation, No pain, No vision change Ears/Nose/Throat: No As described under HPI, No no symptoms reported, No chronic hearing loss, No ear discharge, No ear pain, No nasal drainage, No ulcerations Respiratory: No no symptoms reported; As described under HPI; No As described under HPI, No cough, No orthopnea, No shortness of breath, No SOB with excertion Cardiovascular: No no symptoms reported; As described under HPI; No As described under HPI, No chest pain, No edema, No irregular heart rate, No lightheadedness, No palpitations Gastrointestinal: No no symptoms reported, No As described under HPI, No abdomen distended, No abdominal pain, No blood streaked bowels, No constipation , No diarrhea, No nausea, No vomiting, No stool coloration changes Genitourinary: No As described under HPI, No burning, No dysuria, No discharge , No frequency, No flank pain, No hematuria, No urgency : Yes : No Skin: No rash, No skin related problems, No ulcerations Psychiatric/Neurological: No anxiety, No depression, No seizure, No focal weakness, No syncope Hematologic: No bleeding abnormalities [id number] Hx Patient Social History Alcohol Use: Denies Use Recreational Drug Use: No Smoking Status: Current Everyday Smoker (1 PPD) Type Used: Cigarettes Recent Foreign Travel: No Recent Infectious Disease Expo: No Hospitalization with Isolation: Denies Past Medical History PMH As described under Assessment. Allergies and Home Medications Allergies Coded Allergies: No Known Drug Allergies (Verified , 07/18/08) Home Medications Amlodipine Besylate 5 Mg Tablet, 5 MG PO DAILY, (Reported) LAST FILLED #30 05-19-18 Atenolol 50 Mg Tablet, 50 MG PO BID, (Reported) LAST FILLED #90 05-08-18 Carbamazepine 200 Mg Tablet, 200 MG PO BID, (Reported) LAST FILLED #60 06-12-18 Loperamide HCl 2 Mg Capsule, 2 MG PO UD PRN for DIARRHEA, (Reported) Simvastatin 40 Mg Tablet, 40 MG PO HS, (Reported) Patient Home Medication List Home Medication List Reviewed: Yes Physical Exam-Cardiology Physical Exam Vital Signs/I&O 07/18/18 07/18/18 07/18/18 07/18/18 04:50 07:28 08:00 08:00 Temp 97.7 97.4 Pulse 63 63 63 Resp 20 18 B/P (MAP) 164/93 (116) 166/83 (110) Pulse Ox 98 93 O2 Delivery Room Air Room Air Room Air 07/18/18 12:00 Temp 98.1 Pulse 59 Resp 18 B/P (MAP) 154/64 (94) Pulse Ox 92 O2 Delivery Room Air 07/18/18 00:00 Intake Total 1650 ml Output Total 1350 ml Balance 300 ml Capillary Refill : Less Than 3 SecondsLess Than 3 Seconds Constitutional: appears stated age, AAO x 3; No apparent distress; well- developed, well-nourished HEENT: PERRL; No normal ENT inspection, No TMs normal, No pharynx normal, No scleral icterus (R), No scleral icterus (L), No pale conjunctivae (R), No pale conjunctivae (L), No photophobia, No TM abnormal (R), No TM abnormal (L), No pharyngeal erythema, No tonsillar exudate, No other, No discharge, No EOMI; hearing is well preserved; No hard of hearing; oral hygience is good; No ulceration, No xanthelasmas are seen Neck: No carotid bruit; carotid pulses are 2 + bilaterally Respiratory: No accessory muscle use, No respiratory distress, No chest tender , No chest expansion is symmetric; chest is bilaterally symmetric; No lungs clear to percussion; lungs clear to auscultation; No crackles, No rhonchi, No rales, No stridor, No wheezing, No pleural rub, No other Cardiovascular: regular rate-rhythm; No irregularly irregular, No extra beats, No parasternal heave is noted, No JVD, No edema, No bradycardia, No tachycardia , No point of maximal impulse, No cardiac thrills are palpable; S1 and S2; No gallop/S3, No gallop/S4, No diastolic murmur, No systolic murmur, No friction rub, No click, No other Gastrointestinal: No tender, No soft, No round, No distended, No pulsatile mass , No organomegaly, No guarding, No rebound, No tenderness, No hernia, No mass, No audible bowel sounds, No abnormal bowel sounds, No abdominal bruits, No spleenomegaly, No other Rectal: deferred Extremities: No normal range of motion, No non-tender, No normal inspection, No pedal edema, No calf tenderness, No normal capillary refill, No pelvis stable , No calf tenderness, No inflammation, No pedal edema, No slow capillary refill , No swelling, No other, No abrasion, No clubbing, No cyanosis, No ecchymosis, No laceration, No no lower extremity edema bilateral, No significant edema, No tenderness, No wound Neurologic/Psychiatric: no motor/sensory deficits, alert, normal mood/affect, oriented x 3, power is 5/5 both on sides Skin: No normal color, No warm/dry, No cyanosis, No cool, No diaphoresis, No damp, No ecchymosis, No jaundice, No mottled, No pallor, No rash, No tattoos/ piercings, No ulcerations, No rash on exposed areas, No ulcerations on exposed areas, No other Data Review Labs Microbiology 07/16/18 Blood Culture - Preliminary, Resulted No growth 07/16/18 Influenza Types A,B Antigen (RAMESH) - Final, Complete ECG Impression ECG Initial ECG Rhythm: Normal Sinus A/P-Cardiology Assessment/Admission Diagnosis Dementia, Borderline positive troponin, Sinus bradycardia, Mildly elevated BNP, Decubitus ulcers Plan Dementia, the patient cannot make decisions for her care. The family is petitioning in Court, so that they can take over to make decisions for the patient. Borderline positive troponin, borderline positive troponin which has been trending down. Acute coronary syndrome cannot be ruled out. I will start the patient on baby aspirin. EKG does not reveal any acute ST-T wave abnormalities. I'm not sure how to proceed with this patient considering significant dementia and no family to decide about how aggressive we should be in taking care of this patient. I will discuss with the primary team. Sinus bradycardia, patient was on atenolol as an outpatient. However we are unclear whether she took atenolol recently. The patient has sinus bradycardia which has improved gradually. The heart rate is in the 50s and early 60s. No more beta blockers or calcium channel blockers. Mildly elevated BNP, borderline BNP with no clinical stigmata of congestive heart failure. Diuretics are not recommended. Decubitus ulcers, defer to the primary team. Ex Hypertension Thank you for your consultation. Please call me if you have any questions. Selena Rose MD, FACP, FACC, FSCAI, FHRS, CCDS Interventional Cardiology Cardiac Electrophysiology Vascular Medicine and Endovascular Interventions Clinical Quality Measures DVT/VTE Risk/Contraindication: Risk Factor Score Per Nursin RFS Level Per Nursing on Admit: 4+=Very High Andrew ROSE MD Jul 17, 2018 17:37
[2018-07-17] MEDS ORDERED: cefTRIAXone 1,000 MG/SWFI 10 ML IV PUSH IV SCH ×2 (19:30)
[2018-07-17] MEDS: cefTRIAXone 1,000 MG/SWFI 10 ML IV PUSH IV SCH ×2 (20:17)
--- NOTE | 2018-07-17 20:55 | Wound Care Assessment ---
Wound Care Assessment Date Seen by Provider: Jul 17, 2018 Time Seen by Provider: 20:45 Chief Complaint Sacral pressure ulcer. HPI The patient is a 73 year old female found confused, sitting in her own excrement. Noted to have unstageable pressure ulcer of the sacral area with surrounding MASD. Off-loading and barrier cream ordered. Will follow. Smoking Status: Current Everyday Smoker (1 PPD) Recreational Drug Use: No Alcohol Use: Denies Use Exam Vital Signs Date Time Temp Pulse Resp B/P (MAP) Pulse Ox O2 Delivery O2 Flow Rate FiO2 07/17/18 16:00 96.9 54 20 168/84 (112) 91 Room Air Capillary Refill : Less Than 3 SecondsLess Than 3 Seconds Skin: other (Sacral ulcer -- 15.0 x 16.0 x 0.3 cm, 25% eschar, 75% slough, periwound excoriated.) Results Laboratory Tests 07/17/18 00:00: Troponin I 0.059H 07/17/18 03:45: Sodium Level 138, Potassium Level 3.4L, Chloride Level 104, Carbon Dioxide Level 22, Anion Gap 12, Blood Urea Nitrogen 15, Creatinine 0.85, Estimat Glomerular Filtration Rate > 60, BUN/Creatinine Ratio 18, Glucose Level 149H, Calcium Level 8.9, Corrected Calcium 9.6, Total Bilirubin 0.4, Aspartate Amino Transf (AST/SGOT) 16, Alanine Aminotransferase (ALT/SGPT) 7, Alkaline Phosphatase 48, Total Protein 5.7L, Albumin 3.1L 07/17/18 04:00: White Blood Count 6.9, Red Blood Count 3.71L, Hemoglobin 13.0, Hematocrit 39, Mean Corpuscular Volume 104H, Mean Corpuscular Hemoglobin 35H, Mean Corpuscular Hemoglobin Concent 34, Red Cell Distribution Width 12.7, Platelet Count 119L, Mean Platelet Volume 9.8, Neutrophils (%) (Auto) 78H, Lymphocytes (%) (Auto) 11L , Monocytes (%) (Auto) 10, Eosinophils (%) (Auto) 0, Basophils (%) (Auto) 0, Neutrophils # (Auto) 5.4, Lymphocytes # (Auto) 0.8L, Monocytes # (Auto) 0.7, Eosinophils # (Auto) 0.0, Basophils # (Auto) 0.0 Microbiology 07/16/18 Blood Culture - Preliminary, Resulted No growth 07/16/18 Influenza Types A,B Antigen (RAMESH) - Final, Complete Microbiology 07/16/18 Blood Culture - Preliminary, Resulted No growth 07/16/18 Blood Culture - Preliminary, Resulted No growth 07/16/18 Influenza Types A,B Antigen (RAMESH) - Final, Complete NATO AGUILAR MD Jul 17, 2018 20:55
[2018-07-18] VITALS: BP 161/80
[2018-07-18 04:50] VITALS: BP 164/93
[2018-07-18] MEDS: D5 1/2 NS W/KCL 20 MEQ/L 1,000 ML IV SCH ×3 (05:53→19:30)
[2018-07-18] MEDS: CATHETER FLUSH 10 ML SYR IV SCH ×3 (06:07→20:23)
[2018-07-18 08:00] VITALS: BP 166/83
--- NOTE | 2018-07-18 10:11 | NUR ---
CM/SS spoke with patient and her . Wilder (patient's ) was ok with referral to SNF. His preference was for [facility]. Referral sent. Spoke with Megan at [facility] and she will let me know after looking at referrals.
[2018-07-18 12:00] VITALS: BP 154/64
[2018-07-18] MEDS: ZINC OXIDE 16% OINT (BUTT PASTE) 113 GM TUBE TOP SCH ×3 (12:07→20:23)
--- NOTE | 2018-07-18 12:57 | Progress Note-Hospitalist ---
Progress Note Progress Notes/Assess & Plan Date Seen 07/18/18 Time Seen by Provider: 12:53 Assessment & Plan The patient is alert. She remains quite confused. She is reticent and largely silent. She has eaten very little. It was revealed to me that she once weighed over 300 pounds. She then embarked on a diet a few years ago which she lost considerable weight. Her family members and friends state that it took over 2 years for her to get into the reasonable range. She seems to have taken this to the extreme at this point. Physical exam: Ribs are abundantly apparent. Lungs are clear to auscultation. CV is regular. Extremities show no edema. Impression: Advanced dementia. 2.low body weight. 3.anorexia. 4.perineal decubiti/incontinence of urine and bowel. Plan: Wound care consult. It has been arranged for her and her to be transferred to via [facility] [place] tomorrow Focused Exam Lactate Level 07/16/18 18:30: Lactic Acid Level 1.09 ENID CAMPA MD Jul 18, 2018 12:57
--- NOTE | 2018-07-18 13:41 | NUR ---
NOTE THAT DR LAI CALLED THIS RN ABOUT SLT ELEVATED TROP LEVEL -- DUE TO PT'S DEMENTIA UNABLE TO EVAL -- TO TALK TO DR CAMPA ABOUT -- THIS RN DID SO --DR CAMPA VOICED TO DC THE TELEMETRY AND THAT PT IS TOO DEMENTED TO EVAL -- PLAN TO DC'D PT AND HER IN [facility] TO [facility]
--- NOTE | 2018-07-18 13:43 | Cardiology Progress Note ---
Cardiology SOAP Progress Note Subjective: Poor historian. Objective: I&O/Vital Signs 07/18/18 07/18/18 07/18/18 07/18/18 04:50 07:28 08:00 08:00 Temp 97.7 97.4 Pulse 63 63 63 Resp 20 18 B/P (MAP) 164/93 (116) 166/83 (110) Pulse Ox 98 93 O2 Delivery Room Air Room Air Room Air 07/18/18 12:00 Temp 98.1 Pulse 59 Resp 18 B/P (MAP) 154/64 (94) Pulse Ox 92 O2 Delivery Room Air 07/18/18 00:00 Intake Total 1650 ml Output Total 1350 ml Balance 300 ml Weight (Pounds): 95 Weight (Ounces): 5.0 Weight (Calculated Kilograms): 43.288427 Constitutional: appears stated age, AAO x 3; No apparent distress; well- developed, well-nourished Respiratory: No accessory muscle use, No respiratory distress, No chest tender , No chest expansion is symmetric; chest is bilaterally symmetric; No lungs clear to percussion; lungs clear to auscultation; No crackles, No rhonchi, No rales, No stridor, No wheezing, No pleural rub, No other Cardiovascular: regular rate-rhythm; No irregularly irregular, No extra beats, No parasternal heave is noted, No JVD, No edema, No bradycardia, No tachycardia , No point of maximal impulse, No cardiac thrills are palpable; S1 and S2; No gallop/S3, No gallop/S4, No diastolic murmur, No systolic murmur, No friction rub, No click, No other Gastrointestional: No tender, No soft, No round, No distended, No pulsatile mass, No organomegaly, No guarding, No rebound, No tenderness, No hernia, No mass, No audible bowel sounds, No abnormal bowel sounds, No abdominal bruits, No spleenomegaly, No other Extremities: No normal range of motion, No non-tender, No normal inspection, No pedal edema, No calf tenderness, No normal capillary refill, No pelvis stable , No calf tenderness, No inflammation, No pedal edema, No slow capillary refill , No swelling, No other, No abrasion, No clubbing, No cyanosis, No ecchymosis, No laceration, No no lower extremity edema bilateral, No significant edema, No tenderness, No wound Neurologic/Psychiatric: no motor/sensory deficits, alert, normal mood/affect, oriented x 3, power is 5/5 both on sides Skin: No normal color, No warm/dry, No cyanosis, No cool, No diaphoresis, No damp, No ecchymosis, No jaundice, No mottled, No pallor, No rash, No tattoos/ piercings, No ulcerations, No rash on exposed areas, No ulcerations on exposed areas, No other Results/Procedures: Labs Microbiology 07/16/18 Blood Culture - Preliminary, Resulted No growth 07/16/18 Influenza Types A,B Antigen (RAMESH) - Final, Complete A/P: Assessment/Dx: Dementia, Borderline positive troponin, Sinus bradycardia, Mildly elevated BNP, Decubitus ulcers Plan: Dementia, the patient cannot make decisions for her care. The family is petitioning in Court, so that they can take over to make decisions for the patient. Borderline positive troponin, borderline positive troponin which has been trending down. Acute coronary syndrome cannot be ruled out. I will start the patient on baby aspirin. EKG does not reveal any acute ST-T wave abnormalities. I'm not sure how to proceed with this patient considering significant dementia and no family to decide about how aggressive we should be in taking care of this patient. I will discuss with the primary team. Sinus bradycardia, patient was on atenolol as an outpatient. However we are unclear whether she took atenolol recently. The patient has sinus bradycardia which has improved gradually. The heart rate is in the 50s and early 60s. No more beta blockers or calcium channel blockers. Mildly elevated BNP, borderline BNP with no clinical stigmata of congestive heart failure. Diuretics are not recommended. Decubitus ulcers, defer to the primary team. Hypertension Thank you for your consultation. Please call me if you have any questions. Selena Rose MD, FACP, FACC, FSCAI, FHRS, CCDS Interventional Cardiology Cardiac Electrophysiology Vascular Medicine and Endovascular Interventions Focused Exam Lactate Level 07/16/18 18:30: Lactic Acid Level 1.09 Andrew ROSE MD Jul 18, 2018 13:42
[2018-07-18 15:49] VITALS: BP 128/76
[2018-07-18 20:00] VITALS: BP 160/92
[2018-07-18] MEDS: cefTRIAXone 1,000 MG/SWFI 10 ML IV PUSH IV SCH ×2 (20:23)
[2018-07-19] VITALS: BP 144/73
[2018-07-19] MEDS: D5 1/2 NS W/KCL 20 MEQ/L 1,000 ML IV SCH ×2 (02:22→09:14)
[2018-07-19] MEDS: CATHETER FLUSH 10 ML SYR IV SCH (07:05)
[2018-07-19] MEDS: ZINC OXIDE 16% OINT (BUTT PASTE) 113 GM TUBE TOP SCH ×2 (08:16→12:40)
[2018-07-19 08:27] VITALS: BP 160/81
--- NOTE | 2018-07-19 08:56 | NUR ---
CM/SS the patient and her will be transferred to [facility] this day, late morning. Completed the CARE assessment with the patient. [facility], and copy retained on chart.
[2018-07-19] MEDS ORDERED: ASPIRIN E.C. 81 MG (ECOTRIN) TAB PO SCH (09:00)
--- NOTE | 2018-07-19 10:54 | Progress Note-Hospitalist ---
Progress Note Progress Notes/Assess & Plan Date Seen 07/19/18 Time Seen by Provider: 10:49 Assessment & Plan The patient is alert but disoriented. She is lounging in bed. Arrangements have been made for her and her to be transferred to [facility] today. She is still loathe to eat. If this continues she may require some appetite stimulation. Physical exam: She is very thin. Lungs are clear to auscultation. CV is regular. Extremities show no pedal edema. Impression: Advanced dementia. 2.cachexia/anorexia. Plan: Transfer to nursing facility. Focused Exam Lactate Level 07/16/18 18:30: Lactic Acid Level 1.09 Copy Copies To 1: CAT RAYMUNDO MD, RODNEY K MD Jul 19, 2018 10:54
--- NOTE | 2018-07-19 11:01 | Discharge Inst-Skilled Nursing ---
Discharge Inst-Skilled NF Chief Complaint The patient is a 73-year-old white female who was admitted yesterday. Her had been admitted on Tuesday after having been observed by the neighbors to be walking about in a confused fashion in the rain. The family was notified at that time. They came in from out of town to check on her and found her to be in a terrible mess. The electricity had been turned off in their home. One of the family member states that she had not been in the home for about 5 years in the decline in up keep was quite disturbing. The food in the refrigerator had become stinky garbage. She had been incontinent of stool and urine. She has not been eating well for some months and had lost a good deal of weight. She was found to have multiple sores on her perineum of indeterminate age. She too had become very confused. Patient Instructions Patient Problems: Dementia. 2.cachexia/anorexia. 3.open wounds perineum Goal: Improve dietary status. 2.improve ambulation. 3.HEAL wounds Consult/Follow Up/Orders Follow Up Appt.: Arrange with Dr. Townsend Skilled NF Admit to: Via [facility] [place] Certification (SNF) I certify that SNF services are required to be given on an inpatient basis because of the above named patient's need for custodial care on a continuing basis for the conditions(s) for which he/she was receiving inpatient hospital services prior to his/her transfer to the SNF[facility] Order: Nursing Services, Service Assistant-Evaluate & Treat, Physical Therapy-Evaluate & Treat, Wound Care-Eval/Treat Oxygen Delivery Method: Room Air Discharge Diet: No Restrictions Daily Activity as Tolerated: Yes New & Resume Previous Orders Gerardo Campa Jul 19, 2018 10:58 Pneu Vac Indicated: Yes GERARDO CAMPA MD Jul 19, 2018 11:01
--- NOTE | 2018-07-19 13:03 | NUR ---
CM/SS sent all discharge paperwork to [facility].
[2018-07-19 14:04] VITALS: BP 160/81
--- NOTE | 2018-07-19 14:04 | NUR ---
REPORT CALLED TO RN AT [facility], PAPERWORK GIVEN TO [facility] STAFF, IV DISCONTINUED.
--- NOTE | 2018-07-19 15:45 | Cardiology Progress Note ---
Cardiology SOAP Progress Note Subjective: No cardiac complaints according to the patient. Objective: I&O/Vital Signs 07/19/18 07/19/18 07/19/18 08:00 08:27 14:04 Temp 97.8 Pulse 67 67 Resp 18 18 B/P (MAP) 160/81 (107) 160/81 Pulse Ox 100 100 O2 Delivery Room Air Room Air Room Air 07/18/18 23:59 Intake Total 3185 ml Output Total 2850 ml Balance 335 ml Weight (Pounds): 95 Weight (Ounces): 5.0 Weight (Calculated Kilograms): 43.367924 Constitutional: appears stated age, AAO x 3; No apparent distress; well- developed, well-nourished Respiratory: No accessory muscle use, No respiratory distress, No chest tender , No chest expansion is symmetric; chest is bilaterally symmetric; No lungs clear to percussion; lungs clear to auscultation; No crackles, No rhonchi, No rales, No stridor, No wheezing, No pleural rub, No other Cardiovascular: regular rate-rhythm; No irregularly irregular, No extra beats, No parasternal heave is noted, No JVD, No edema, No bradycardia, No tachycardia , No point of maximal impulse, No cardiac thrills are palpable; S1 and S2; No gallop/S3, No gallop/S4, No diastolic murmur, No systolic murmur, No friction rub, No click, No other Gastrointestional: No tender, No soft, No round, No distended, No pulsatile mass, No organomegaly, No guarding, No rebound, No tenderness, No hernia, No mass, No audible bowel sounds, No abnormal bowel sounds, No abdominal bruits, No spleenomegaly, No other Extremities: No normal range of motion, No non-tender, No normal inspection, No pedal edema, No calf tenderness, No normal capillary refill, No pelvis stable , No calf tenderness, No inflammation, No pedal edema, No slow capillary refill , No swelling, No other, No abrasion, No clubbing, No cyanosis, No ecchymosis, No laceration, No no lower extremity edema bilateral, No significant edema, No tenderness, No wound Neurologic/Psychiatric: no motor/sensory deficits, alert, normal mood/affect, oriented x 3, power is 5/5 both on sides Skin: No normal color, No warm/dry, No cyanosis, No cool, No diaphoresis, No damp, No ecchymosis, No jaundice, No mottled, No pallor, No rash, No tattoos/ piercings, No ulcerations, No rash on exposed areas, No ulcerations on exposed areas, No other Results/Procedures: Labs Microbiology 07/16/18 Blood Culture - Preliminary, Resulted No growth 07/16/18 Influenza Types A,B Antigen (RAMESH) - Final, Complete A/P: Assessment/Dx: Dementia, Borderline positive troponin, Sinus bradycardia, Mildly elevated BNP, Decubitus ulcers Plan: Dementia, the patient cannot make decisions for her care. The family is petitioning in Court, so that they can take over to make decisions for the patient. Borderline positive troponin, borderline positive troponin which has been trending down. Acute coronary syndrome cannot be ruled out. I will start the patient on baby aspirin. EKG does not reveal any acute ST-T wave abnormalities. I'm not sure how to proceed with this patient considering significant dementia and no family to decide about how aggressive we should be in taking care of this patient. I will discuss with the primary team. Sinus bradycardia, patient was on atenolol as an outpatient. However we are unclear whether she took atenolol recently. The patient has sinus bradycardia which has improved gradually. The heart rate is in the 50s and early 60s. No more beta blockers or calcium channel blockers. Mildly elevated BNP, borderline BNP with no clinical stigmata of congestive heart failure. Diuretics are not recommended. Decubitus ulcers, defer to the primary team. Hypertension. Patient is being transferred to a nursing facility today. I'll be happy to follow-up as an outpatient if required. Thank you for your consultation. Please call me if you have any questions. Selena Rose MD, FACP, FACC, FSCAI, FHRS, CCDS Interventional Cardiology Cardiac Electrophysiology Vascular Medicine and Endovascular Interventions Focused Exam Lactate Level 07/16/18 18:30: Lactic Acid Level 1.09 Andrew ROSE MD Jul 19, 2018 15:45
== END 2018-07-19 14:04 | DRG 593 ==
LOC: EDUNIT# 16:29 → ER 16:30 → ICU 19:25 → 4TH 07-17 10:08
PROVIDERS: ADMIT Family Medicine; ATTEND Family Medicine
DX: L89.150 Pressure ulcer of sacral region, unstageable (principal); L89.310 Pressure ulcer of right buttock, unstageable; L89.320 Pressure ulcer of left buttock, unstageable; L89.890 Pressure ulcer of other site, unstageable; N39.0 Urinary tract infection, site not specified; R64 Cachexia; E86.0 Dehydration; R15.9 Full incontinence of feces; F03.90 Unspecified dementia, unspecified severity, without behavioral disturbance, psychotic disturbance, mood disturbance, and anxiety; R32 Unspecified urinary incontinence; R00.1 Bradycardia, unspecified; I10 Essential (primary) hypertension; E78.00 Pure hypercholesterolemia, unspecified; R79.89 Other specified abnormal findings of blood chemistry; F17.210 Nicotine dependence, cigarettes, uncomplicated; Z74.2 Need for assistance at home and no other household member able to render care; Z91.89 Other specified personal risk factors, not elsewhere classified
CPT/HCPCS: 36415; 51702; 71045; 72170; 80053; 80156; 80306; 80320; 80329; 81000; 82140; 82150; 82550; 82553; 82962; 83605; 83690; 83735; 83880; 84443; 84484; 85025; 85610; 85730; 87040; 87804; 93005; 93041; 93306; 96361; 96374

== ENCOUNTER → 2018-07-25 | Outpatient (CLI) | payer MEDICARE ==
[~2018-07-25] MED LIST: AMLO5TAB9 PO; ATEN50TA PO; CARB200T PO; LOPE-145 PO; SIMV40TA4 PO
== END ==
LOC: WOUNDCARE 08:17
PROVIDERS: ATTEND Nurse Practitioner
DX: L89.313 Pressure ulcer of right buttock, stage 3 (principal); E44.0 Moderate protein-calorie malnutrition; R54 Age-related physical debility

== ENCOUNTER → 2018-08-01 | Outpatient (CLI) | payer MEDICARE | LOC: WOUNDCARE 14:34 | PROVIDERS: ATTEND Surgery | DX: L89.313 Pressure ulcer of right buttock, stage 3 (principal); E44.0 Moderate protein-calorie malnutrition; R54 Age-related physical debility | CPT/HCPCS: 11042 ==

== ENCOUNTER 2018-08-06 12:44 | Emergency (ER) | payer MEDICARE ==
[~2018-08-06] VITALS: Ht 154.9 cm; Wt 45.4 kg
--- OUTSIDE RECORDS SUMMARY | 2018-08-06 12:50 | XMS REPORT | Continuity of Care Document ---
Author Organization Unknown Address Unknown Allergies Active Description Code Type Severity Reaction Onset Reported/Identified Relationship to Patient Clinical Status Yes No Known Drug Allergies [id number] Drug Allergy Unknown N/A 07/18/2008 Medications There is no data. Problems Date Dx Coded Attending Type Code Diagnosis Diagnosed By 11/17/2009 Ot 792.1 09/06/2014 CAT RAYMUNDO MD Ot V76.12 04/15/2015 Ot V76.12 04/15/2015 Ot V76.12 04/15/2015 Ot V76.12 04/15/2015 LARRY MCPHERSON APRN Ot V76.12 04/15/2015 CAT RAYMUNDO MD Ot V76.12 05/09/2015 LARRY MCPHERSON [employer] MECH[employer] Ot M16.11 05/09/2015 LARRY MCPHERSON R [employer] MECHANIC Ot M47.892 05/09/2015 VIDA LARRY R [employer]OR[employer] MECHANIC Ot M85.89 05/09/2015 LARRY MCPHERSON R [employer]ORBOAT MECHANIC Ot S00.03XA 05/15/2015 VIDA LARRY R [employer]ORBOAT MECHANIC Ot M16.11 05/15/2015 VIDA LARRY R [employer]ORBOAT MECHANIC Ot M47.892 05/15/2015 LARRY MCPHERSON R [employer]ORBO[employer] MECHANIC Ot M85.89 05/15/2015 LARRY MCPHERSON R [employer]ORBOAT MECHANIC Ot S00.03XA 07/15/2015 JB MCPHERSONN R [employer]ORBOAT MECHANIC Ot Z12.31 07/24/2015 LARRY MCPHERSON [employer]ORBOAT MECHANIC Ot R92.8 08/06/2015 LARRY MCPHERSON [employer]ORBOAT MECHANIC Ot Z12.31 ENCNTR SCREEN MAMMOGRAM FOR MALIGNANT [...] Ot M16.11 UNILATERAL PRIMARY OSTEOARTHRITIS, RIGHT 08/06/2016 VIDA, LARRY R [employer] MECHANIC Ot M47.892 OTHER SPONDYLOSIS, CERVICAL REGION 08/06/2016 LARRY MCPHERSON [employer] MECHANIC Ot M85.89 OTH DISRD OF BONE DENSITY AND STRUCTURE, 08/06/2016 LARRY MCPHERSON [employer]BO[employer] MECHANIC Ot S00.03XA CONTUSION OF SCALP, INITIAL ENCOUNTER 08/06/2016 LARRY MCPHERSON [employer]BO[employer] MECHANIC Ot Z12.31 ENCNTR SCREEN MAMMOGRAM FOR MALIGNANT NE 08/06/2016 LARRY MCPHERSON [employer]ORBO[employer] MECHANIC Ot R92.8 OTH ABN AND INCONCLUSIVE FINDINGS ON DX 08/06/2016 CAT RAYMUNDO MD Ot D69.6 THROMBOCYTOPENIA, UNSPECIFIED 08/06/2016 CAT RAYMUNDO MD Ot D72.819 DECREASED WHITE BLOOD CELL COUNT, UNSPEC 08/06/2016 CAT RAYMUNDO MD Ot Z12.31 ENCNTR SCREEN MAMMOGRAM FOR MALIGNANT NE 08/06/2016 LARRY MCPHERSON [employer]BO[employer] MECHANIC Ot R92.2 INCONCLUSIVE MAMMOGRAM 08/06/2016 LARRY MCPHERSON [employer]ORBO[employer] MECHANIC Ot R92.2 INCONCLUSIVE MAMMOGRAM 08/09/2016 Ot V76.12 OTH SCREEN MAMMO-MALIGN NEOPLASM OF MARKELL 08/09/2016 Ot V76.12 OTH SCREEN MAMMO-MALIGN NEOPLASM OF MARKELL 08/09/2016 LARRY MCPHERSON [employer] MECHANIC Ot V76.12 OTH SCREEN MAMMO-MALIGN NEOPLASM OF MARKELL 08/09/2016 CAT RAYMUNDO MD Ot V76.12 OTH SCREEN MAMMO-MALIGN NEOPLASM OF MARKELL 08/09/2016 LARRY MCPHERSON [employer]BO[employer] MECHANIC Ot M16.11 UNILATERAL PRIMARY OSTEOARTHRITIS, RIGHT 08/09/2016 LARRY MCPHERSON [employer]BO[employer] MECHANIC Ot M47.892 OTHER SPONDYLOSIS, CERVICAL REGION 08/09/2016 LARRY MCPHERSON [employer]ORBO[employer] MECHANIC Ot M85.89 OTH DISRD OF BONE DENSITY AND STRUCTURE, 08/09/2016 LARRY MCPHERSON [employer]ORBO[employer] MECHANIC Ot S00.03XA CONTUSION OF SCALP, INITIAL ENCOUNTER 08/09/2016 LARRY MCPHERSON [employer]ORBO[employer] MECHANIC Ot Z12.31 ENCNTR SCREEN MAMMOGRAM FOR MALIGNANT NE 08/09/2016 LARRY MCPHERSON [employer]ORBO[employer] MECHANIC Ot R92.8 OTH ABN AND INCONCLUSIVE FINDINGS ON DX 08/09/2016 CAT RAYMUNDO MD Ot D69.6 THROMBOCYTOPENIA, UNSPECIFIED 08/09/2016 CAT RAYMUNDO MD Ot D72.819 DECREASED WHITE [...] MAMMOGRAM FOR MALIGNANT NE 07/28/2017 LARRY MCPHERSON [employer]ORBO[employer] MECHANIC Ot R92.8 OTH ABN AND INCONCLUSIVE FINDINGS ON DX 07/28/2017 CAT RAYMUNDO MD, Ot D69.6 THROMBOCYTOPENIA, UNSPECIFIED 07/28/2017 CAT RAYMUNDO MD, Ot D72.819 DECREASED WHITE BLOOD CELL COUNT, UNSPEC 07/28/2017 CAT RAYMUNDO MD, Ot Z12.31 ENCNTR [...] MAMMOGRAM FOR MALIGNANT NE 07/29/2017 CAT RAYMUNDO MD, Ot Z12.31 ENCNTR SCREEN MAMMOGRAM FOR MALIGNANT NE 08/17/2017 CAT RAYMUNDO MD, Ot Z12.31 ENCNTR SCREEN MAMMOGRAM FOR MALIGNANT NE 07/17/2018 LETICIA BAE MD Ot E78.00 PURE HYPERCHOLESTEROLEMIA, UNSPECIFIED 07/17/2018 LETICIA BAE MD, Ot E86.0 DEHYDRATION 07/17/2018 LETICIA BAE MD, Ot F17.210 NICOTINE DEPENDENCE, CIGARETTES, UNCOMPL 07/17/2018 LETICIA BAE MD, Ot I10 ESSENTIAL (PRIMARY) HYPERTENSION 07/17/2018 LETICIA BAE MD Ot 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, UNSTAGE 07/17/2018 LETICIA BAE MD Ot L89.320 PRESSURE ULCER OF LEFT BUTTOCK, UNSTAGEA 07/17/2018 LETICIA BAE MD, Ot L89.890 PRESSURE ULCER OF OTHER SITE, UNSTAGEABL 07/17/2018 LETICIA BAE MD, Ot N39.0 URINARY TRACT INFECTION, SITE NOT SPECIF 07/17/2018 LETICIA BAE MD, Ot R46.0 VERY LOW LEVEL OF PERSONAL HYGIENE 07/17/2018 LETICIA BAE MD, Ot R64 CACHEXIA 07/17/2018 LETICIA BAE MD Ot R79.89 OTHER SPECIFIED ABNORMAL FINDINGS OF BLO 07/17/2018 LETICIA BAE MD Ot Z74.2 NEED FOR ASSIST AT HOME NO HOUSE MEMB 07/17/2018 LETICIA BAE MD Ot Z91.89 OTH PERSONAL RISK FACTORS, NOT ELSEWHERE 07/18/2018 LETICIA BAE MD Ot E78.00 PURE HYPERCHOLESTEROLEMIA, UNSPECIFIED 07/18/2018 LETICIA BAE MD Ot E86.0 DEHYDRATION 07/18/2018 LETICIA BAE MD Ot F17.210 NICOTINE DEPENDENCE, CIGARETTES, UNCOMPL 07/18/2018 LETICIA BAE MD Ot I10 ESSENTIAL (PRIMARY) HYPERTENSION 07/18/2018 LETICIA BAE MD Ot 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, UNSTAGE 07/18/2018 LETICIA BAE MD Ot L89.320 PRESSURE ULCER OF LEFT BUTTOCK, UNSTAGEA 07/18/2018 LETICIA BAE MD Ot L89.890 PRESSURE ULCER OF OTHER SITE, UNSTAGEABL 07/18/2018 LETICIA BAE MD Ot N39.0 URINARY TRACT INFECTION, SITE NOT SPECIF 07/18/2018 LETICIA BAE MD Ot R46.0 VERY LOW LEVEL OF PERSONAL HYGIENE 07/18/2018 LETICIA BAE MD Ot R64 CACHEXIA 07/18/2018 LETICIA BAE MD Ot R79.89 OTHER SPECIFIED ABNORMAL FINDINGS OF BLO 07/18/2018 LETICIA BAE MD Ot Z74.2 NEED FOR ASSIST AT HOME NO HOUSE MEMB 07/18/2018 LETICIA BAE MD Ot Z91.89 OTH PERSONAL RISK FACTORS, NOT ELSEWHERE 07/19/2018 LETICIA BAE MD Ot E78.00 PURE HYPERCHOLESTEROLEMIA, UNSPECIFIED 07/19/2018 LETICIA BAE MD Ot E86.0 DEHYDRATION 07/19/2018 LETICIA BAE MD Ot F03.90 UNSPECIFIED DEMENTIA WITHOUT BEHAVIORAL 07/19/2018 LETICIA BAE MD Ot F17.210 NICOTINE DEPENDENCE, CIGARETTES, UNCOMPL 07/19/2018 LETICIA BAE MD Ot I10 ESSENTIAL (PRIMARY) HYPERTENSION 07/19/2018 LETICIA BAE MD Ot L89.150 PRESSURE ULCER OF SACRAL REGION, UNSTAGE 07/19/2018 LETICIA BAE MD Ot 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, UNSTAGE 07/19/2018 LETICIA BAE MD Ot L89.320 PRESSURE ULCER OF LEFT BUTTOCK, UNSTAGEA 07/19/2018 LETICIA BAE MD Ot L89.890 PRESSURE ULCER OF OTHER SITE, UNSTAGEABL 07/19/2018 LETICIA BAE MD Ot N39.0 URINARY TRACT INFECTION, SITE NOT SPECIF 07/19/2018 LETICIA BAE MD Ot R00.1 BRADYCARDIA, UNSPECIFIED 07/19/2018 LETICIA BAE MD Ot R15.9 FULL INCONTINENCE OF FECES 07/19/2018 LETICIA BAE MD Ot R32 UNSPECIFIED URINARY INCONTINENCE 07/19/2018 LETICIA BAE MD Ot R46.0 VERY LOW LEVEL OF PERSONAL HYGIENE 07/19/2018 LETICIA BAE MD Ot R64 CACHEXIA 07/19/2018 LETICIA BAE MD Ot R79.89 OTHER SPECIFIED ABNORMAL FINDINGS OF BLO 07/19/2018 LETICIA BAE MD Ot Z74.2 NEED FOR ASSIST AT HOME NO HOUSE MEMB 07/19/2018 LETICIA BAE MD Ot Z91.89 OTH PERSONAL RISK FACTORS, NOT ELSEWHERE 07/20/2018 LARRY MCPHERSON APRN Ot V76.12 OTH SCREEN MAMMO-MALIGN NEOPLASM OF [place]KELL 07/20/2018 ZACKARY JUDD, CAT Gonzalez Ot V76.12 OTH SCREEN MAMMO-MALIGN NEOPLASM OF MARKELL 07/20/2018 LARRY MCPHERSON APRN Ot M16.11 UNILATERAL PRIMARY OSTEOARTHRITIS, RIGHT 07/20/2018 LARRY MCPHERSON APRN Ot M47.892 OTHER SPONDYLOSIS, CERVICAL REGION 07/20/2018 LARRY MCPHERSON APRN Ot M85.89 OTH DISRD OF BONE DENSITY AND STRUCTURE, 07/20/2018 LARRY MCPHERSON APRN Ot S00.03XA CONTUSION OF SCALP, INITIAL ENCOUNTER 07/20/2018 LARRY MCPHERSON APRN Ot Z12.31 ENCNTR SCREEN MAMMOGRAM FOR MALIGNANT NE 07/20/2018 LARRY MCPHERSON APRN Ot R92.8 OTH ABN AND INCONCLUSIVE FINDINGS ON DX 07/20/2018 CAT RAYMUNDO MD Ot D69.6 THROMBOCYTOPENIA, UNSPECIFIED 07/20/2018 CAT RAYMUNDO MD, Ot D72.819 DECREASED WHITE BLOOD CELL COUNT, UNSPEC 07/20/2018 CAT RAYMUNDO MD Ot Z12.31 ENCNTR SCREEN MAMMOGRAM FOR MALIGNANT NE 07/20/2018 LARRY MCPHERSON APRN Ot R92.8 OTH ABN AND INCONCLUSIVE FINDINGS ON DX 07/20/2018 ARI PARRA Ot J44.9 CHRONIC OBSTRUCTIVE PULMONARY DISEASE, U 07/20/2018 ARI PARRA Ot M16.11 UNILATERAL PRIMARY OSTEOARTHRITIS, RIGHT 07/20/2018 ARI PARRA Ot W19.XXXA UNSPECIFIED FALL, INITIAL ENCOUNTER 07/20/2018 CAT RAYMUNDO MD, Ot Z12.31 ENCNTR SCREEN MAMMOGRAM FOR MALIGNANT NE 07/25/2018 LARRY MCPHERSON [employer]ORBOAT MECHANIC Ot V76.12 OTH SCREEN MAMMO-MALIGN NEOPLASM OF MARKELL 07/25/2018 CAT RAYMUNDO MD Ot V76.12 OTH SCREEN MAMMO-MALIGN NEOPLASM OF MARKELL 07/25/2018 LARRY MCPHERSON APRN Ot M16.11 UNILATERAL PRIMARY OSTEOARTHRITIS, RIGHT 07/25/2018 LARRY MCPHERSON APRN Ot M47.892 OTHER SPONDYLOSIS, CERVICAL REGION 07/25/2018 LARRY MCPHERSON APRN Ot M85.89 OTH DISRD OF BONE DENSITY AND STRUCTURE, 07/25/2018 LARRY MCPHERSON MOTORBOAT MECHANIC Ot S00.03XA CONTUSION OF SCALP, INITIAL ENCOUNTER 07/25/2018 LARRY MCPHERSON [employer]ORBO[employer] MECHANIC Ot Z12.31 ENCNTR SCREEN MAMMOGRAM FOR MALIGNANT NE 07/25/2018 LARRY MCPHERSON APRN Ot R92.8 OTH ABN AND INCONCLUSIVE FINDINGS ON DX 07/25/2018 CAT RAYMUNDO MD Ot D69.6 THROMBOCYTOPENIA, UNSPECIFIED 07/25/2018 CAT RAYMUNDO MD Ot D72.819 DECREASED WHITE BLOOD CELL COUNT, UNSPEC 07/25/2018 CAT RAYMUNDO MD Ot Z12.31 ENCNTR SCREEN MAMMOGRAM FOR MALIGNANT NE 07/25/2018 LARRY MCPHERSON APRN Ot R92.8 OTH ABN AND INCONCLUSIVE FINDINGS ON DX 07/25/2018 ARI PARRA Ot J44.9 CHRONIC OBSTRUCTIVE PULMONARY DISEASE, U 07/25/2018 ARI PARRA Ot M16.11 UNILATERAL PRIMARY OSTEOARTHRITIS, RIGHT 07/25/2018 ARI PARRA Ot W19.XXXA UNSPECIFIED FALL, INITIAL ENCOUNTER 07/25/2018 ZACKARY JUDD, CAT Gonzalez Ot Z12.31 ENCNTR SCREEN MAMMOGRAM FOR MALIGNANT NE 07/26/2018 LARRY MCPHERSON APRN Ot 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 Results Test Result Range Complete blood count (CBC) with automated white blood cell (WBC) differential - 07/16/18 18:00 Blood leukocytes automated count (number/volume) 7.2 10*3/uL 4.3-11.0 Blood erythrocytes automated count (number/volume) 4.21 10*6/uL 4.35-5.85 Venous blood hemoglobin measurement (mass/volume) 14.6 g/dL 11.5-16.0 Blood hematocrit (volume fraction) 43 % 35-52 Automated erythrocyte mean corpuscular volume 103 [foz_us] 80-99 Automated erythrocyte mean corpuscular hemoglobin (mass per erythrocyte) 35 pg 25-34 Automated erythrocyte mean corpuscular hemoglobin concentration measurement ( mass/volume) 34 g/dL 32-36 Automated erythrocyte distribution width ratio 12.9 % 10.0-14.5 Automated blood platelet count (count/volume) 133 10*3/uL 130-400 Automated blood platelet mean volume measurement 10.3 [foz_us] 7.4-10.4 Automated blood neutrophils/100 leukocytes 81 % 42-75 Automated blood lymphocytes/100 leukocytes 9 % 12-44 Blood monocytes/100 leukocytes 9 % 0-12 Automated blood eosinophils/100 leukocytes 0 % 0-10 Automated blood basophils/100 leukocytes 0 % 0-10 Blood neutrophils automated count (number/volume) 5.8 10*3 1.8-7.8 Blood lymphocytes automated count (number/volume) 0.7 10*3 1.0-4.0 Blood monocytes automated count (number/volume) 0.7 10*3 0.0-1.0 Automated eosinophil count 0.0 10*3/uL 0.0-0.3 Automated blood basophil count (count/volume) 0.0 10*3/uL 0.0-0.1 PT panel in platelet poor plasma by coagulation assay - 07/16/18 18:00 Prothrombin time (PT) in platelet poor plasma by coagulation assay 15.4 s 12.2-14.7 INR in platelet poor plasma or blood by coagulation assay 1.2 0.8-1.4 Activated partial thromboplastin time (aPTT) in platelet poor plasma bycoagulation assay - 07/16/18 18:00 Activated partial thromboplastin time (aPTT) in platelet poor plasma bycoagulation assay 31 s 24-35 Comprehensive metabolic panel - 07/16/18 18:00 Serum or plasma sodium measurement (moles/volume) 142 mmol/L 135-145 Serum or plasma potassium measurement (moles/volume) 3.2 mmol/L 3.6-5.0 Serum or plasma chloride measurement (moles/volume) 102 mmol/L 98-107 Carbon dioxide 24 mmol/L 21-32 Serum or plasma anion gap determination (moles/volume) 16 mmol/L 5-14 Serum or plasma urea nitrogen measurement (mass/volume) 17 mg/dL 7-18 Serum or plasma creatinine measurement (mass/volume) 0.85 mg/dL 0.60-1.30 Serum or plasma urea nitrogen/creatinine mass ratio 20 NRG Serum or plasma creatinine measurement with calculation of estimated glomerular filtration rate > NRG Serum or plasma glucose measurement (mass/volume) 96 mg/dL 70-105 Serum or plasma calcium measurement (mass/volume) 9.6 mg/dL 8.5-10.1 Serum or plasma total bilirubin measurement (mass/volume) 0.7 mg/dL 0.1-1.0 Serum or plasma alkaline phosphatase measurement (enzymatic activity/volume) 60 U/L 40-136 Serum or plasma aspartate aminotransferase measurement (enzymatic activity/ volume) 17 U/L 5-34 Serum or plasma alanine aminotransferase measurement (enzymatic activity/volume ) 10 U/L 0-55 Serum or plasma protein measurement (mass/volume) 6.7 g/dL 6.4-8.2 Serum or plasma albumin measurement (mass/volume) 3.7 g/dL 3.2-4.5 CALCIUM CORRECTED 9.8 mg/dL 8.5-10.1 Magnesium - 07/16/18 18:00 Magnesium 2.0 mg/dL 1.8-2.4 Serum or plasma creatine kinase measurement (enzymatic activity/volume) - 07/16 18:00 Serum or plasma creatine kinase measurement (enzymatic activity/volume) 87 U/L 29-168 Serum or plasma creatine kinase MB measurement (enzymatic activity/volume) - 18:00 Serum or plasma creatine kinase MB measurement (enzymatic activity/volume) 4.4 ng/mL <6.6 Serum or plasma troponin i.cardiac measurement (mass/volume) - 07/16/18 18:00 Serum or plasma troponin i.cardiac measurement (mass/volume) 0.092 ng/mL <0.028 Serum or plasma amylase measurement (enzymatic activity/volume) - 07/16/18 18: 00 Serum or plasma amylase measurement (enzymatic activity/volume) 34 U /L 25-125 Lipase - 07/16/18 18:00 Lipase 23 U/L 8-78 Serum or plasma lithium measurement (moles/volume) - 07/16/18 18:00 BNP level 110.1 pg/mL <100.0 Serum or plasma carbamazepine measurement (mass/volume) - 07/16/18 18:00 Serum or plasma carbamazepine measurement (mass/volume) 5.2 ug/mL 4.0-12.0 Serum or plasma thyrotropin measurement by detection limit <=0.05 miu/l (units/ volume) - 07/16/18 18:00 Serum or plasma thyrotropin measurement by detection limit <=0.05 miu/l (units/ volume) 2.32 u[iU]/mL 0.35-4.94 Serum or plasma acetaminophen measurement (mass/volume) - 07/16/18 18:00 Serum or plasma acetaminophen measurement (mass/volume) < ug/mL 10-30 Serum or plasma ethanol measurement (mass/volume) - 07/16/18 18:00 Serum or plasma ethanol measurement (mass/volume) < mg/dL <10 Blood lactic acid measurement (moles/volume) - 07/16/18 18:30 Blood lactic acid measurement (moles/volume) 1.09 mmol/L 0.50-2.00 Ammonia - 07/16/18 18:35 Ammonia 20 umol/L 11-32 Influenza virus A and B antigen detection - 07/16/18 18:40 FLU RESULT NEGATIVE FOR INFLUENZA A AND B ANTIGENS BY IA NRG Bacterial blood culture - 07/16/18 18:40 Bacterial blood culture NG NRG Complete urinalysis with reflex to culture - 07/16/18 18:51 Urine color determination DARK YELLOW NRG Urine clarity determination SLIGHTLY CLOUDY NRG Urine pH measurement by test strip 5 5-9 Specific gravity of urine by test strip 1.025 1.016- 1.022 Urine protein assay by test strip, semi-quantitative 2+ NEGATIVE Urine glucose detection by automated test strip NEGATIVE NEGATIVE Erythrocytes detection in urine sediment by light microscopy 1+ NEGATIVE Urine ketones detection by automated test strip 2+ NEGATIVE Urine nitrite detection by test strip NEGATIVE NEGATIVE Urine total bilirubin detection by test strip 1+ NEGATIVE Urine urobilinogen measurement by automated test strip (mass/volume) 4 mg/dL NORMAL Urine leukocyte esterase detection by dipstick 1+ NEGATIVE Automated urine sediment erythrocyte count by microscopy (number/high power field) RARE NRG Automated urine sediment leukocyte count by microscopy (number/high power field ) RARE NRG Bacteria detection in urine sediment by light microscopy NEGATIVE NRG Squamous epithelial cells detection in urine sediment by light microscopy 0-2 NRG Crystals detection in urine sediment by light microscopy NONE NRG Casts detection in urine sediment by light microscopy NONE NRG Mucus detection in urine sediment by light microscopy SMALL NRG Complete urinalysis with reflex to culture NO NRG Urine drug screening test - 07/16/18 18:51 Urine phencyclidine detection by screening method NEGATIVE NEGATIVE Urine benzodiazepines detection by screening method NEGATIVE NEGATIVE Urine cocaine detection NEGATIVE NEGATIVE Urine amphetamines detection by screening method NEGATIVE NEGATIVE Urine methamphetamine detection by screening method NEGATIVE NEGATIVE Urine cannabinoids detection by screening method NEGATIVE NEGATIVE Urine opiates detection by screening method NEGATIVE NEGATIVE Urine barbiturates detection NEGATIVE NEGATIVE Screening urine tricyclic antidepressants detection NEGATIVE NEGATIVE Urine methadone detection by screening method NEGATIVE NEGATIVE Urine oxycodone detection NEGATIVE NEGATIVE Urine propoxyphene detection NEGATIVE NEGATIVE Capillary blood glucose measurement by glucometer (mass/volume) - 07/16/18 18: 57 Capillary blood glucose measurement by glucometer (mass/volume) 99 mg/dL 70-110 Bacterial blood culture - 07/16/18 19:10 Bacterial blood culture NG NRG Serum or plasma troponin i.cardiac measurement (mass/volume) - 07/17/18 00:00 Serum or plasma troponin i.cardiac measurement (mass/volume) 0.059 ng/mL <0.028 Comprehensive metabolic panel - 07/17/18 03:45 Serum or plasma sodium measurement (moles/volume) 138 mmol/L 135-145 Serum or plasma potassium measurement (moles/volume) 3.4 mmol/L 3.6-5.0 Serum or plasma chloride measurement (moles/volume) 104 mmol/L 98-107 Carbon dioxide 22 mmol/L 21-32 Serum or plasma anion gap determination (moles/volume) 12 mmol/L 5-14 Serum or plasma urea nitrogen measurement (mass/volume) 15 mg/dL 7-18 Serum or plasma creatinine measurement (mass/volume) 0.85 mg/dL 0.60-1.30 Serum or plasma urea nitrogen/creatinine mass ratio 18 NRG Serum or plasma creatinine measurement with calculation of estimated glomerular filtration rate > NRG Serum or plasma glucose measurement (mass/volume) 149 mg/dL 70-105 Serum or plasma calcium measurement (mass/volume) 8.9 mg/dL 8.5-10.1 Serum or plasma total bilirubin measurement (mass/volume) 0.4 mg/dL 0.1-1.0 Serum or plasma alkaline phosphatase measurement (enzymatic activity/volume) 48 U/L 40-136 Serum or plasma aspartate aminotransferase measurement (enzymatic activity/ volume) 16 U/L 5-34 Serum or plasma alanine aminotransferase measurement (enzymatic activity/volume ) 7 U/L 0-55 Serum or plasma protein measurement (mass/volume) 5.7 g/dL 6.4-8.2 Serum or plasma albumin measurement (mass/volume) 3.1 g/dL 3.2-4.5 CALCIUM CORRECTED 9.6 mg/dL 8.5-10.1 Complete blood count (CBC) with automated white blood cell (WBC) differential - 07/17/18 04:00 Blood leukocytes automated count (number/volume) 6.9 10*3/uL 4.3-11.0 Blood erythrocytes automated count (number/volume) 3.71 10*6/uL 4.35-5.85 Venous blood hemoglobin measurement (mass/volume) 13.0 g/dL 11.5-16.0 Blood hematocrit (volume fraction) 39 % 35-52 Automated erythrocyte mean corpuscular volume 104 [foz_us] 80-99 Automated erythrocyte mean corpuscular hemoglobin (mass per erythrocyte) 35 pg 25-34 Automated erythrocyte mean corpuscular hemoglobin concentration measurement ( mass/volume) 34 g/dL 32-36 Automated erythrocyte distribution width ratio 12.7 % 10.0-14.5 Automated blood platelet count (count/volume) 119 10*3/uL 130-400 Automated blood platelet mean volume measurement 9.8 [foz_us] 7.4-10.4 Automated blood neutrophils/100 leukocytes 78 % 42-75 Automated blood lymphocytes/100 leukocytes 11 % 12-44 Blood monocytes/100 leukocytes 10 % 0-12 Automated blood eosinophils/100 leukocytes 0 % 0-10 Automated blood basophils/100 leukocytes 0 % 0-10 Blood neutrophils automated count (number/volume) 5.4 10*3 1.8-7.8 Blood lymphocytes automated count (number/volume) 0.8 10*3 1.0-4.0 Blood monocytes automated count (number/volume) 0.7 10*3 0.0-1.0 Automated eosinophil count 0.0 10*3/uL 0.0-0.3 Automated blood basophil count (count/volume) 0.0 10*3/uL 0.0-0.1 Encounters ACCT No. Visit Date/Time Discharge Status Pt. Type Provider Facility Loc./Unit Complaint [id number] 08/01/2018 14:34:00 08/01/2018 23:59:59 CLS Outpatient NATO AGUILAR MD [facility] [id number] 07/25/2018 08:17:00 07/25/2018 23:59:59 CLS Outpatient LARRY MCPHERSON APRN [facility] [id number] 07/16/2018 19:25:00 07/19/2018 14:04:00 DIS Inpatient CATALINO JUDD, LETICIA Morales [facility] 4TH GENERALIZED WEAKNESS; DECUBITUS ULCERS-BUTTOCKS [id number] 07/28/2017 09:46:00 07/28/2017 23:59:59 CLS Outpatient CAT RAYMUNDO MD [facility] RAD SCREENING [id number] 04/14/2017 11:06:00 04/14/2017 23:59:59 CLS Outpatient ARI PARRA [facility] RAD R07.82, M25.551 [id number] 08/09/2016 07:52:00 08/09/2016 23:59:59 CLS Outpatient LARRY MCPHERSON [employer] [facility] RAD R92.8 [id number] 07/27/2016 07:55:00 07/27/2016 23:59:59 CLS Outpatient CAT RAYMUNDO MD [facility] RAD SCREENING [id number] 11/11/2015 07:19:00 11/11/2015 23:59:59 CLS Outpatient CAT RAYMUNDO MD [facility] LAB THROMBOCYTOPENIA [id number] 07/24/2015 08:41:00 07/24/2015 23:59:59 CLS Outpatient LARRY MCPHERSON [employer] [facility] RAD ABNORMAL MAMMO [id number] 07/14/2015 10:19:00 07/14/2015 23:59:59 CLS Outpatient LARRY MCPHERSON [employer] [facility] RAD SCREENING [id number] 04/15/2015 15:31:00 04/15/2015 23:59:59 CLS Outpatient LARRY MCPHERSON APRN [facility] RAD POST FALL AT HOME [id number] 07/10/2014 07:01:00 07/10/2014 23:59:59 CLS Outpatient CAT RAYMUNDO MD [facility] RAD SCREENING [id number] 07/09/2013 08:24:00 07/09/2013 23:59:59 CLS Outpatient LARRY MCPHERSON [employer] [facility] RAD ROUTINE [id number] 08/06/2018 12:45:00 ACT Emergency SCOTT DILLON [employer] [facility] ER FALL [id number] 07/06/2012 06:39:00 Document Registration [id number] 07/01/2011 07:04:00 Document Registration [id number] 06/29/2010 06:57:00 Document Registration [id number] 11/17/2009 09:18:00 Document Registration
--- NOTE | 2018-08-06 12:56 | ED Fall/Injury ---
General Stated Complaint: FALL Source: patient Exam Limitations: no limitations History of Present Illness Date Seen by Provider: Aug 06, 2018 Time Seen by Provider: 12:51 Initial Comments To ER with reports of a fall at via [facility]. Hematoma the left side of the scalp. No loss of consciousness. No complaints of pain to the hips or other injury. Occurred: just prior to arrival Severity: moderate Injuries/Pain Location: no injury Loss of Consciousness: no loss of consciousness Associated Symptoms (Fall): Headache Allergies and Home Medications Allergies Coded Allergies: No Known Drug Allergies (Verified , 07/18/08) Home Medications Amlodipine Besylate 5 Mg Tablet, 5 MG PO DAILY, (Reported) LAST FILLED #30 05-19-18 Atenolol 50 Mg Tablet, 50 MG PO BID, (Reported) LAST FILLED #90 05-08-18 Carbamazepine 200 Mg Tablet, 200 MG PO BID, (Reported) LAST FILLED #60 06-12-18 Loperamide HCl 2 Mg Capsule, 2 MG PO UD PRN for DIARRHEA, (Reported) Patient Home Medication List Home Medication List Reviewed: Yes Review of Systems Review of Systems Constitutional: see HPI Eyes: No Symptoms Reported Ears, Nose, Mouth, Throat: no symptoms reported Respiratory: no symptoms reported Cardiovascular: no symptoms reported Genitourinary: no symptoms reported Musculoskeletal: see HPI Skin: no symptoms reported Psychiatric/Neurological: No Symptoms Reported Past Bcleoag-Nvabda-Zzqqdz Hx Patient Social History Type Used: Cigarettes Past Medical History Surgeries: Yes (SURGERY FOR TRIGEMINAL NEURALGIA) Tonsillectomy Respiratory: No Cardiac: Yes High Cholesterol, Hypertension Neurological: Yes (RIGHT TRIGMENINAL NEURALGIA) Reproductive Disorders: No Genitourinary: No Gastrointestinal: No Musculoskeletal: No Endocrine: No HEENT: Yes (RIGHT TRIGEMINAL NEURALGIA) Cancer: No Psychosocial: No Integumentary: No Blood Disorders: No Physical Exam Vital Signs Vital Signs - First Documented 08/06/18 12:44 Pulse 62 Resp 20 B/P (MAP) 116/67 (83) Pulse Ox 99 O2 Delivery Room Air Capillary Refill : Height, Weight, BMI Height: 5'0.00" Weight: 95lbs. 5.0oz. [id number]; 18.6 BMI Method:Estimated General Appearance: WD/WN, no apparent distress HEENT: PERRL/EOMI, normal ENT inspection, other (hematoma left scalp) Neck: non-tender, full range of motion Respiratory: no respiratory distress, no accessory muscle use Gastrointestinal: normal bowel sounds, non tender, soft Neurologic/Psychiatric: alert, normal mood/affect, oriented x 3 Skin: normal color, warm/dry Progress/Results/Core Measures Results/Orders My Orders Orders - SCOTT DILLON APRN Ct Head/Cervical Spine Wo (08/06/18 12:47) Vital Signs/I&O 08/06/18 12:44 Pulse 62 Resp 20 B/P (MAP) 116/67 (83) Pulse Ox 99 O2 Delivery Room Air Departure Communication (Admissions) 3057-cervical collar removed at this time, family and patient updated on the unremarkable CT scan. Small hematoma to the left parietal scalp. We will discharge back to the nursing facility. Impression Primary Impression: Scalp hematoma Qualified Codes: S00.03XA - Contusion of scalp, initial encounter Disposition: HOME, SELF-CARE Condition: Stable Departure-Patient Inst. Decision time for Depature: 13:58 Referrals: CAT RAYMUNDO MD (PCP/Family) Primary Care Physician Patient Instructions: HEMATOMA Add. Discharge Instructions: 1. Return to ER for any concerns 2. Follow-up with her doctor next week Copy Copies To 1: CAT RAYMUNDO MD, PETER J APRN Aug 06, 2018 12:55
--- NOTE | 2018-08-06 13:45 | Diagnostic Imaging Report ---
PROCEDURE: CT head and CT cervical spine without contrast. TECHNIQUE: Multiple contiguous axial images were obtained through the brain and cervical spine without the use of intravenous contrast. Sagittal and coronal reformations through the cervical spine were then performed. Auto Exposure Controls were utilized during the CT exam to meet ALARA standards for radiation dose reduction. INDICATION: Fell, head and neck pain. CT HEAD There is no mass, shift of the midline or hemorrhage to suggest an acute intracranial abnormality. The ventricles are prominent but unchanged in size when compared to the previous CT head exam of 04/15/2015. The senescent changes and cortical atrophy and periventricular encephalomalacia noted on the prior study are again visualized and no different. The bone windows show no sign of a fracture. The orbits are symmetrical and within normal limits. The sinuses are generally clear. IMPRESSION: 1. There is no evidence for an acute intracranial abnormality. When compared to the previous study, there has been no significant change. 2. If clinical concern regarding an underlying abnormality persists, then MRI would be recommended for further study. 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 Those degenerative changes are again evident on this study and do not seem to have progressed. However in the interval since the prior exam, there has been further narrowing of the disc space at C3-4. There is still no sign of a high-grade central stenosis at this level. There is no fracture or acute bony abnormality identified. There is no sign of retropharyngeal edema. The thyroid gland is generally unremarkable. The lung apices are clear. The fluid collection in the subcutaneous fat just to the right of midline in the mid neck seen on the previous study is again evident and somewhat smaller. I do suspect this is a sebaceous cyst. IMPRESSION: 1. There is no evidence for an acute bony abnormality. 2. The degenerative disc and bony disease seen previously is again evident. The degenerative changes at the C3-4 level have progressed somewhat since the prior study. Dictated by: Dictated on workstation # [id number]
--- NOTE | 2018-08-06 13:57 | NUR ---
CCOLLAR REMOVED BY Benjie DILLON APRN AT THIS TIME.
--- NOTE | 2018-08-06 13:58 | NUR ---
JAIL CALLED TO COME GET PATIENT.
[2018-08-06 14:40] VITALS: BP 116/71
== END 2018-08-06 14:40 | disposition home or self-care (01) ==
LOC: EDUNIT# 12:44 → ER 12:45
DX: S00.03XA Contusion of scalp, initial encounter (principal); E78.00 Pure hypercholesterolemia, unspecified; I10 Essential (primary) hypertension; Z90.89 Acquired absence of other organs; W19.XXXA Unspecified fall, initial encounter
CPT/HCPCS: 70450; 72125

== ENCOUNTER → 2018-08-08 | Outpatient (CLI) | payer MEDICARE | LOC: WOUNDCARE 11:03 | PROVIDERS: ATTEND Nurse Practitioner | DX: L89.313 Pressure ulcer of right buttock, stage 3 (principal); E44.0 Moderate protein-calorie malnutrition; R54 Age-related physical debility | CPT/HCPCS: 11042 ==

== ENCOUNTER → 2018-08-15 | Outpatient (CLI) | payer MEDICARE | LOC: WOUNDCARE 11:02 | PROVIDERS: ATTEND Nurse Practitioner | DX: L89.313 Pressure ulcer of right buttock, stage 3 (principal); E44.0 Moderate protein-calorie malnutrition; R54 Age-related physical debility | CPT/HCPCS: 11042 ==

== ENCOUNTER → 2018-08-22 | Outpatient (CLI) | payer MEDICARE, OTHER | LOC: WOUNDCARE 10:47 | PROVIDERS: ATTEND Nurse Practitioner | DX: L89.313 Pressure ulcer of right buttock, stage 3 (principal); E44.0 Moderate protein-calorie malnutrition; R54 Age-related physical debility | CPT/HCPCS: 99212 ==

== ENCOUNTER → 2018-08-29 | Outpatient (CLI) | payer OTHER | LOC: WOUNDCARE 10:58 | PROVIDERS: ATTEND Nurse Practitioner | DX: L89.313 Pressure ulcer of right buttock, stage 3 (principal); E44.0 Moderate protein-calorie malnutrition; R54 Age-related physical debility | CPT/HCPCS: 99212 ==

== ENCOUNTER 2018-10-18 15:58 | Emergency (ER) | payer MEDICARE ==
[~2018-10-18] VITALS: Ht 154.9 cm; Wt 45.5 kg
--- OUTSIDE RECORDS SUMMARY | 2018-10-18 16:04 | XMS REPORT | Continuity of Care Document ---
Author Organization Unknown Address Unknown Allergies Active Description Code Type Severity Reaction Onset Reported/Identified Relationship to Patient Clinical Status Yes No Known Drug Allergies [id number] Drug Allergy Unknown N/A 07/18/2008 Medications There is no data. Problems Date Dx Coded Attending Type Code Diagnosis Diagnosed By 11/17/2009 Ot 792.1 09/06/2014 CAT RAYMUNDO MD Ot V76.12 04/15/2015 Ot V76.12 04/15/2015 Ot V76.12 04/15/2015 Ot V76.12 04/15/2015 LARRY MCPHERSON APRN Ot V76.12 04/15/2015 CAT RAYMUNDO MD Ot V76.12 05/09/2015 LARRY MCPHERSON TOBACCO PACKING MACHINE OPERATOR Ot M16.11 05/09/2015 LARRY MCPHERSON R TOBACCO PACKING MACHINE OPERATOR Ot M47.892 05/09/2015 VIDA LARRY R TOBACCO PACKING MACHINE OPERATOR Ot M85.89 05/09/2015 LARRY MCPHERSON R TOBACCO PACKING MACHINE OPERATOR Ot S00.03XA 05/15/2015 VIDA LARRY R TOBACCO PACKING MACHINE OPERATOR Ot M16.11 05/15/2015 VIDA LARRY R TOBACCO PACKING MACHINE OPERATOR Ot M47.892 05/15/2015 LARRY MCPHERSON R TOBACCO PACKING MACHINE OPERATOR Ot M85.89 05/15/2015 LARRY MCPHERSON R TOBACCO PACKING MACHINE OPERATOR Ot S00.03XA 07/15/2015 JB MCPHERSONN R TOBACCO PACKING MACHINE OPERATOR Ot Z12.31 07/24/2015 LARRY MCPHERSON TOBACCO PACKING MACHINE OPERATOR Ot R92.8 08/06/2015 LARRY MCPHERSON TOBACCO PACKING MACHINE OPERATOR Ot Z12.31 ENCNTR SCREEN MAMMOGRAM FOR MALIGNANT NE 12/02/2015 CAT RAYMUNDO MD Ot D69.6 THROMBOCYTOPENIA, UNSPECIFIED 12/02/2015 CAT RAYMUNDO MD Ot D72.819 DECREASED WHITE BLOOD CELL COUNT, UNSPEC 07/27/2016 Ot V76.12 OTH SCREEN MAMMO- MALIGN NEOPLASM OF MARKELL 07/27/2016 Ot V76.12 OTH SCREEN MAMMO- MALIGN NEOPLASM OF MARKELL 07/27/2016 LARRY MCPHERSON APRN [...] MALIGNANT NE 08/06/2016 Ot V76.12 OTH SCREEN MAMMO- MALIGN NEOPLASM OF MARKELL 08/06/2016 Ot V76.12 OTH SCREEN MAMMO- MALIGN NEOPLASM OF MARKELL 08/06/2016 LARRY MCPHERSON APRN Ot V76.12 OTH SCREEN MAMMO-MALIGN NEOPLASM OF MARKELL 08/06/2016 CAT RAYMUNDO MD Ot V76.12 OTH SCREEN MAMMO-MALIGN NEOPLASM OF MARKELL 08/06/2016 LARRY MCPHERSON APRN Ot M16.11 UNILATERAL PRIMARY OSTEOARTHRITIS, RIGHT 08/06/2016 VIDA, LARRY R TOBACCO PACKING MACHINE OPERATOR Ot M47.892 OTHER SPONDYLOSIS, CERVICAL REGION 08/06/2016 LARRY MCPHERSON TOBACCO PACKING MACHINE OPERATOR Ot M85.89 OTH DISRD OF BONE DENSITY AND STRUCTURE, 08/06/2016 LARRY MCPHERSON TOBACCO PACKING MACHINE OPERATOR Ot S00.03XA CONTUSION OF SCALP, INITIAL ENCOUNTER 08/06/2016 LARRY MCPHERSON TOBACCO PACKING MACHINE OPERATOR Ot Z12.31 ENCNTR SCREEN MAMMOGRAM FOR MALIGNANT NE 08/06/2016 LARRY MCPHERSON TOBACCO PACKING MACHINE OPERATOR Ot R92.8 OTH ABN AND INCONCLUSIVE FINDINGS ON DX 08/06/2016 CAT RAYMUNDO MD Ot D69.6 THROMBOCYTOPENIA, UNSPECIFIED 08/06/2016 CAT RAYMUNDO MD Ot D72.819 DECREASED WHITE BLOOD CELL COUNT, UNSPEC 08/06/2016 CAT RAYMUNDO MD Ot Z12.31 ENCNTR SCREEN MAMMOGRAM FOR MALIGNANT NE 08/06/2016 LARRY MCPHERSON TOBACCO PACKING MACHINE OPERATOR Ot R92.2 INCONCLUSIVE MAMMOGRAM 08/06/2016 LARRY MCPHERSON TOBACCO PACKING MACHINE OPERATOR Ot R92.2 INCONCLUSIVE MAMMOGRAM 08/09/2016 Ot V76.12 OTH SCREEN MAMMO- MALIGN NEOPLASM OF MARKELL 08/09/2016 Ot V76.12 OTH SCREEN MAMMO- MALIGN NEOPLASM OF MARKELL 08/09/2016 LARRY MCPHERSON TOBACCO PACKING MACHINE OPERATOR Ot V76.12 OTH SCREEN MAMMO-MALIGN NEOPLASM OF MARKELL 08/09/2016 CAT RAYMUNDO MD Ot V76.12 OTH SCREEN MAMMO-MALIGN NEOPLASM OF MARKELL 08/09/2016 LARRY MCPHERSON TOBACCO PACKING MACHINE OPERATOR Ot M16.11 UNILATERAL PRIMARY OSTEOARTHRITIS, RIGHT 08/09/2016 LARRY MCPHERSON TOBACCO PACKING MACHINE OPERATOR Ot M47.892 OTHER SPONDYLOSIS, CERVICAL REGION 08/09/2016 LARRY MCPHERSON TOBACCO PACKING MACHINE OPERATOR Ot M85.89 OTH DISRD OF BONE DENSITY AND STRUCTURE, 08/09/2016 LARRY MCPHERSON TOBACCO PACKING MACHINE OPERATOR Ot S00.03XA CONTUSION OF SCALP, INITIAL ENCOUNTER 08/09/2016 LARRY MCPHERSON TOBACCO PACKING MACHINE OPERATOR Ot Z12.31 ENCNTR SCREEN MAMMOGRAM FOR MALIGNANT NE 08/09/2016 LARRY MCPHERSON TOBACCO PACKING MACHINE OPERATOR Ot R92.8 OTH ABN AND INCONCLUSIVE FINDINGS [...] INITIAL ENCOUNTER 07/28/2017 Ot V76.12 OTH SCREEN MAMMO- MALIGN NEOPLASM OF MARKELL 07/28/2017 LARRY MCPHERSON APRN [...] MAMMOGRAM FOR MALIGNANT NE 07/28/2017 LARRY MCPHERSON TOBACCO PACKING MACHINE OPERATOR Ot R92.8 OTH ABN AND INCONCLUSIVE FINDINGS [...] BAE MD Ot R64 CACHEXIA 07/18/2018 LETICIA BEA MD Ot R79.89 OTHER SPECIFIED ABNORMAL FINDINGS [...] MAMMOGRAM FOR MALIGNANT NE 07/25/2018 LARRY MCPHERSON TOBACCO PACKING MACHINE OPERATOR Ot V76.12 OTH SCREEN MAMMO-MALIGN NEOPLASM OF MARKELL 07/25/2018 CAT RAYMUNDO MD Ot V76.12 OTH SCREEN MAMMO-MALIGN NEOPLASM OF MARKELL 07/25/2018 LARRY MCPHERSON APRN Ot M16.11 UNILATERAL PRIMARY OSTEOARTHRITIS, RIGHT 07/25/2018 LARRY MCPHERSON APRN Ot M47.892 OTHER SPONDYLOSIS, CERVICAL REGION 07/25/2018 LARRY MCPHERSON APRN Ot M85.89 OTH DISRD OF BONE DENSITY AND STRUCTURE, 07/25/2018 LARRY MCPHERSON TOBACCO PACKING MACHINE OPERATOR Ot S00.03XA CONTUSION OF SCALP, INITIAL ENCOUNTER 07/25/2018 LARRY MCPHERSON TOBACCO PACKING MACHINE OPERATOR Ot Z12.31 ENCNTR SCREEN MAMMOGRAM FOR MALIGNANT [...] R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 08/02/2018 NATO AGUILAR MD Ot 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 08/02/2018 NATO AGUILAR MD Ot 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, STAGE 3 08/02/2018 NATO AGUILAR MD Ot R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 08/06/2018 SCOTT DILLON TOBACCO PACKING MACHINE OPERATOR Ot E78.00 PURE HYPERCHOLESTEROLEMIA, UNSPECIFIED 08/06/2018 SCOTT DILLON TOBACCO PACKING MACHINE OPERATOR Ot I10 ESSENTIAL (PRIMARY) HYPERTENSION 08/06/2018 SCOTT DILLON APRN Ot S00.03XA CONTUSION OF SCALP, INITIAL ENCOUNTER 08/06/2018 SCOTT DILLON APRN Ot W19.XXXA UNSPECIFIED FALL, INITIAL ENCOUNTER 08/06/2018 SCOTT DILLON APRN Ot Z90.89 ACQUIRED ABSENCE OF OTHER ORGANS 08/09/2018 SCOTT DILLON APRN Ot E78.00 PURE HYPERCHOLESTEROLEMIA, UNSPECIFIED 08/09/2018 SCOTT DILLON TOBACCO PACKING MACHINE OPERATOR Ot I10 ESSENTIAL (PRIMARY) HYPERTENSION 08/09/2018 SCOTT DILLON TOBACCO PACKING MACHINE OPERATOR Ot S00.03XA CONTUSION OF SCALP, INITIAL ENCOUNTER 08/09/2018 SCOTT DILLON TOBACCO PACKING MACHINE OPERATOR Ot W19.XXXA UNSPECIFIED FALL, INITIAL ENCOUNTER 08/09/2018 SCOTT DILLON TOBACCO PACKING MACHINE OPERATOR Ot Z90.89 ACQUIRED ABSENCE OF OTHER ORGANS 08/10/2018 LARRY MCPHERSON APRN Ot 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 08/10/2018 LARRY MCPHERSON APRN Ot 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, STAGE 3 08/10/2018 LARRY MCPHERSON TOBACCO PACKING MACHINE OPERATOR Ot R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 08/15/2018 LARRY MCPHERSON TOBACCO PACKING MACHINE OPERATOR Ot 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 08/15/2018 LARRY MCPHERSON TOBACCO PACKING MACHINE OPERATOR Ot 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, STAGE 3 08/15/2018 LARRY MCPHERSON TOBACCO PACKING MACHINE OPERATOR Ot R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 08/16/2018 LARRY MCPHERSON TOBACCO PACKING MACHINE OPERATOR Ot 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 08/16/2018 LARRY MCPHERSON TOBACCO PACKING MACHINE OPERATOR Ot 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, STAGE 3 08/16/2018 LARRY MCPHERSON APRN Ot R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 08/16/2018 LARRY MCPHERSON APRN Ot 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 08/16/2018 LARRY MCPHERSON TOBACCO PACKING MACHINE OPERATOR Ot 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, STAGE 3 08/16/2018 LARRY MCPHERSON APRN Ot R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 08/22/2018 NATO AGUILAR MD Ot 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 08/22/2018 NATO AGUILAR MD Ot 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, STAGE 3 08/22/2018 NATO AGUILAR MD Ot R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 08/23/2018 LARRY MCPHERSON APRN Ot V76.12 OTH SCREEN MAMMO-MALIGN NEOPLASM OF MARKELL 08/23/2018 ZACKARY JUDD, CAT Gonzalez Ot V76.12 OTH SCREEN MAMMO-MALIGN NEOPLASM OF MARKELL 08/23/2018 LARRY MCPHERSON TOBACCO PACKING MACHINE OPERATOR Ot M16.11 UNILATERAL PRIMARY OSTEOARTHRITIS, RIGHT 08/23/2018 LARRY MCPHERSON APRN Ot M47.892 OTHER SPONDYLOSIS, CERVICAL REGION 08/23/2018 LARRY MCPHERSON APRN Ot M85.89 OTH DISRD OF BONE DENSITY AND STRUCTURE, 08/23/2018 LARRY MCPHERSON TOBACCO PACKING MACHINE OPERATOR Ot S00.03XA CONTUSION OF SCALP, INITIAL ENCOUNTER 08/23/2018 LARRY MCPHERSON TOBACCO PACKING MACHINE OPERATOR Ot Z12.31 ENCNTR SCREEN MAMMOGRAM FOR MALIGNANT NE 08/23/2018 LARRY MCPHERSON APRN Ot R92.8 OTH ABN AND INCONCLUSIVE FINDINGS ON DX 08/23/2018 CAT RAYMUNDO MD Ot D69.6 THROMBOCYTOPENIA, UNSPECIFIED 08/23/2018 CAT RAYMUNDO MD Ot D72.819 DECREASED WHITE BLOOD CELL COUNT, UNSPEC 08/23/2018 CAT RAYMUNDO MD Ot Z12.31 ENCNTR SCREEN MAMMOGRAM FOR MALIGNANT NE 08/23/2018 LARRY MCPHERSON APRN Ot R92.8 OTH ABN AND INCONCLUSIVE FINDINGS ON DX 08/23/2018 ARI PARRA Ot J44.9 CHRONIC OBSTRUCTIVE PULMONARY DISEASE, U 08/23/2018 ARI PARRA Ot M16.11 UNILATERAL PRIMARY OSTEOARTHRITIS, RIGHT 08/23/2018 ARI PARRA Ot W19.XXXA UNSPECIFIED FALL, INITIAL ENCOUNTER 08/23/2018 CAT RAYMUNDO MD Ot Z12.31 ENCNTR SCREEN MAMMOGRAM FOR MALIGNANT NE 08/23/2018 LARRY MCPHERSON TOBACCO PACKING MACHINE OPERATOR Ot 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 08/23/2018 LARRY MCPHERSON TOBACCO PACKING MACHINE OPERATOR Ot 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, STAGE 3 08/23/2018 LARRY MCPHERSON TOBACCO PACKING MACHINE OPERATOR Ot R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 08/23/2018 NATO AGUILAR MD Ot 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 08/23/2018 NATO AGUILAR MD Ot 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, STAGE 3 08/23/2018 NATO AGUILAR MD Ot R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 08/23/2018 LARRY MCPHERSON TOBACCO PACKING MACHINE OPERATOR Ot 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 08/23/2018 LARRY MCPHERSON TOBACCO PACKING MACHINE OPERATOR Ot 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, STAGE 3 08/23/2018 LARRY MCPHERSON TOBACCO PACKING MACHINE OPERATOR Ot R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 08/23/2018 LARRY MCPHERSON TOBACCO PACKING MACHINE OPERATOR Ot 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 08/23/2018 LARRY MCPHERSON TOBACCO PACKING MACHINE OPERATOR Ot 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, STAGE 3 08/23/2018 LARRY MCPHERSON TOBACCO PACKING MACHINE OPERATOR Ot R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 08/23/2018 LARRY MCPHERSON TOBACCO PACKING MACHINE OPERATOR Ot 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 08/23/2018 LARRY MCPHERSON TOBACCO PACKING MACHINE OPERATOR Ot 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, STAGE 3 08/23/2018 VIDA, LARRY R TOBACCO PACKING MACHINE OPERATOR Ot R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 08/25/2018 VIDA, LARRY R TOBACCO PACKING MACHINE OPERATOR Ot 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 08/25/2018 VIDA, LARRY R TOBACCO PACKING MACHINE OPERATOR Ot 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, STAGE 3 08/25/2018 VIDA LARRY R TOBACCO PACKING MACHINE OPERATOR Ot R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 08/28/2018 VIDA, LARRY R TOBACCO PACKING MACHINE OPERATOR Ot 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 08/28/2018 VIDA, LARRY R TOBACCO PACKING MACHINE OPERATOR Ot 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, STAGE 3 08/28/2018 VIDA LARRY R TOBACCO PACKING MACHINE OPERATOR Ot R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 08/29/2018 VIDA, LARRY R TOBACCO PACKING MACHINE OPERATOR Ot 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 08/29/2018 VIDA LARRY R TOBACCO PACKING MACHINE OPERATOR Ot 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, STAGE 3 08/29/2018 VIDA LARRY R TOBACCO PACKING MACHINE OPERATOR Ot R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 09/05/2018 VIDA LARRY R TOBACCO PACKING MACHINE OPERATOR Ot 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 09/05/2018 VIDA, LARRY R TOBACCO PACKING MACHINE OPERATOR Ot 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, STAGE 3 09/05/2018 LARRY MCPHERSON R TOBACCO PACKING MACHINE OPERATOR Ot R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 09/05/2018 VIDA LARRY R TOBACCO PACKING MACHINE OPERATOR Ot 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 09/05/2018 VIDA LARRY R TOBACCO PACKING MACHINE OPERATOR Ot 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, STAGE 3 09/05/2018 VIDA LARRY R TOBACCO PACKING MACHINE OPERATOR Ot R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 09/07/2018 VIDA LARRY R TOBACCO PACKING MACHINE OPERATOR Ot 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 09/07/2018 VIDA LARRY R TOBACCO PACKING MACHINE OPERATOR Ot 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, STAGE 3 09/07/2018 LARRY MCPHERSON R TOBACCO PACKING MACHINE OPERATOR Ot R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 09/14/2018 VIDA LARRY R TOBACCO PACKING MACHINE OPERATOR Ot 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 09/14/2018 VIDA LARRY R TOBACCO PACKING MACHINE OPERATOR Ot 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, STAGE 3 09/14/2018 LARRY MCPHERSON APRN Ot R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 Procedures There [...] Automated erythrocyte mean corpuscular hemoglobin concentration measurement (mass/volume) 34 g/dL 32-36 Automated erythrocyte distribution width ratio 12.9 % 10.0- 14.5 Automated blood platelet count (count/volume) 133 10*3/uL [...] Blood monocytes automated count (number/volume) 0.7 10*3 0.0- 1.0 Automated eosinophil count 0.0 10*3/uL 0.0-0.3 Automated [...] Serum or plasma aspartate aminotransferase measurement (enzymatic activity/volume) 17 U/L 5-34 Serum or plasma alanine aminotransferase measurement (enzymatic activity/volume) 10 U/L 0-55 Serum or plasma protein measurement (mass/volume) 6.7 g/dL 6.4-8.2 Serum or plasma albumin measurement (mass/volume) 3.7 g/dL 3.2-4.5 CALCIUM CORRECTED 9.8 mg/dL 8.5-10.1 Magnesium - 07/16/18 18:00 Magnesium 2.0 mg/dL 1.8-2.4 Serum or plasma creatine kinase measurement (enzymatic activity/volume) - 07/16/18 18:00 Serum or plasma creatine kinase measurement (enzymatic activity/volume) 87 U/L 29-168 Serum or plasma creatine kinase MB measurement (enzymatic activity/volume) - 07/16/18 18:00 Serum or plasma creatine kinase MB measurement (enzymatic activity/volume) 4.4 ng/mL <6.6 Serum or plasma troponin i.cardiac measurement (mass/volume) - 07/16/18 18:00 Serum or plasma troponin i.cardiac measurement (mass/volume) 0.092 ng/mL <0.028 Serum or plasma amylase measurement (enzymatic activity/volume) - 07/16/18 18:00 Serum or plasma amylase measurement (enzymatic activity/volume) 34 U/L 25-125 Lipase - 07/16/18 18:00 Lipase 23 U/L 8-78 Serum or plasma lithium measurement (moles/volume) - 07/16/18 18:00 BNP level 110.1 pg/mL <100.0 Serum or plasma carbamazepine measurement (mass/volume) - 07/16/18 18:00 Serum or plasma carbamazepine measurement (mass/volume) 5.2 ug/mL 4.0-12.0 Serum or plasma thyrotropin measurement by detection limit <=0.05 miu/l (units/volume) - 07/16/18 18:00 Serum or plasma thyrotropin measurement by detection limit <=0.05 miu/l (units/volume) 2.32 u[iU]/mL 0.35-4.94 Serum or plasma acetaminophen measurement (mass/volume) - 07/16/18 18:00 Serum or plasma acetaminophen measurement (mass/volume) < ug/mL 10-30 Serum or plasma ethanol measurement (mass/volume) - 07/16/18 18:00 Serum or plasma ethanol measurement (mass/volume) < mg/dL <10 Blood lactic acid measurement (moles/volume) - 07/16/18 18:30 Blood lactic acid measurement (moles/volume) 1.09 mmol/L 0.50- 2.00 Ammonia - 07/16/18 18:35 Ammonia 20 umol/L 11-32 Influenza virus A and B antigen detection - 07/16/18 18:40 FLU RESULT NEGATIVE FOR INFLUENZA A AND B ANTIGENS BY IA [facility] Bacterial blood culture - 07/16/18 18:40 Bacterial blood culture [facility] Complete urinalysis with reflex to culture - 07/16/18 18:51 Urine color determination DARK YELLOW [facility] Urine clarity determination SLIGHTLY CLOUDY [facility] Urine pH measurement by test strip 5 5-9 Specific gravity of urine by test strip 1.025 1.016-1.022 Urine protein assay by test strip, semi-quantitative [...] sediment leukocyte count by microscopy (number/high power field) RARE NRG Bacteria detection in urine sediment [...] glucose measurement by glucometer (mass/volume) - 07/16/18 18:57 Capillary blood glucose measurement by glucometer (mass/volume) [...] Serum or plasma aspartate aminotransferase measurement (enzymatic activity/volume) 16 U/L 5-34 Serum or plasma alanine aminotransferase measurement (enzymatic activity/volume) 7 U/L 0-55 Serum or plasma protein [...] Automated erythrocyte mean corpuscular hemoglobin concentration measurement (mass/volume) 34 g/dL 32-36 Automated erythrocyte distribution width ratio 12.7 % 10.0- 14.5 Automated blood platelet count (count/volume) 119 10*3/uL [...] Blood monocytes automated count (number/volume) 0.7 10*3 0.0- 1.0 Automated eosinophil count 0.0 10*3/uL 0.0-0.3 Automated blood basophil count (count/volume) 0.0 10*3/uL 0.0-0.1 Encounters ACCT No. Visit Date/Time Discharge Status Pt. Type Provider Facility Loc./Unit Complaint [id number] 08/29/2018 10:58:00 08/29/2018 23:59:59 CLS Outpatient LARRY MCPHERSON APRN [facility] [id number] 08/22/2018 16:03:00 08/22/2018 23:59:59 CLS Outpatient LARRY MCPHERSON APRN [facility] [id number] 08/15/2018 11:02:00 08/15/2018 23:59:59 CLS Outpatient LARRY MCPHERSON TOBACCO PACKING MACHINE OPERATOR [facility] [id number] 08/08/2018 11:03:00 08/08/2018 23:59:59 CLS Outpatient LARRY MCPHERSON TOBACCO PACKING MACHINE OPERATOR [facility] [id number] 08/06/2018 12:45:00 08/06/2018 14:40:00 DIS Emergency SCOTT DILLON APRN Via [facility] ER FALL [id number] 08/01/2018 14:34:00 08/01/2018 23:59:59 CLS Outpatient LAUREN JUDD, NATO Cordova Via [facility] [id number] 07/25/2018 08:17:00 07/25/2018 23:59:59 CLS Outpatient LARRY MCPHERSON TOBACCO PACKING MACHINE OPERATOR [facility] [id number] 07/16/2018 19:25:00 07/19/2018 14:04:00 DIS Inpatient CATALINO JUDD, LETICIA Morales [facility] 4TH GENERALIZED WEAKNESS; DECUBITUS ULCERS- BUTTOCKS [id number] 07/28/2017 09:46:00 07/28/2017 23:59:59 CLS Outpatient CAT RAYMUNDO MD [facility] RAD SCREENING [id number] 04/14/2017 11:06:00 04/14/2017 23:59:59 CLS Outpatient ARI PARRA [facility] RAD R07.82, M25.551 [id number] 08/09/2016 07:52:00 08/09/2016 23:59:59 CLS Outpatient LARRY MCPHERSON APRN Via [facility] RAD R92.8 [id number] 07/27/2016 07:55:00 07/27/2016 23:59:59 CLS Outpatient CAT RAYMUNDO MD [facility] RAD SCREENING [id number] 11/11/2015 07:19:00 11/11/2015 23:59:59 CLS Outpatient CAT RAYMUNDO MD Via [facility] LAB THROMBOCYTOPENIA [id number] 07/24/2015 08:41:00 07/24/2015 23:59:59 CLS Outpatient LARRY MCPHERSON APRN [facility] RAD ABNORMAL MAMMO [id number] 07/14/2015 10:19:00 07/14/2015 23:59:59 CLS Outpatient LARRY MCPHERSON APRN [facility] RAD SCREENING [id number] 04/15/2015 15:31:00 04/15/2015 23:59:59 CLS Outpatient LARRY MCPHERSON APRN Via [facility] RAD POST FALL AT HOME [id number] 07/10/2014 07:01:00 07/10/2014 23:59:59 CLS Outpatient CAT RAYMUNDO MD Via [facility] RAD SCREENING [id number] 07/09/2013 08:24:00 07/09/2013 23:59:59 CLS Outpatient LARRY MCPHERSON APRN [facility] RAD ROUTINE [id number] 07/06/2012 06:39:00 Document Registration [id number] 07/01/2011 07:04:00 Document Registration [id number] 06/29/2010 06:57:00 Document Registration [id number] 11/17/2009 09:18:00 Document Registration
--- NOTE | 2018-10-18 16:18 | ED Lower Extremity ---
General Chief Complaint: Trauma-Non Activation Stated Complaint: FALL Source: patient Exam Limitations: no limitations History of Present Illness Date Seen by Provider: Oct 18, 2018 Time Seen by Provider: 16:15 Initial Comments To ER by private vehicle from via [facility] with reports of an unwitnessed fall just prior to arrival. She states that she did hit the back of her head but did not lose consciousness. She denies any pain. She is alert, oriented to person, no surrounding the first, knows where she is at, why she is here and that tomorrow is 19 October but she does not know what year it is. Onset: just prior to arrival Severity: moderate Method of Injury: fell Modifying Factors: Worse With Movement Allergies and Home Medications Allergies Coded Allergies: No Known Drug Allergies (Verified , 07/18/08) Home Medications Amlodipine Besylate 5 Mg Tablet, 5 MG PO DAILY, (Reported) LAST FILLED #30 05-19-18 Atenolol 50 Mg Tablet, 50 MG PO BID, (Reported) LAST FILLED #90 05-08-18 Carbamazepine 200 Mg Tablet, 200 MG PO BID, (Reported) LAST FILLED #60 06-12-18 Loperamide HCl 2 Mg Capsule, 2 MG PO UD PRN for DIARRHEA, (Reported) Patient Home Medication List Home Medication List Reviewed: Yes Review of Systems Constitutional: see HPI EENTM: see HPI Respiratory: no symptoms reported Cardiovascular: no symptoms reported Genitourinary: no symptoms reported Musculoskeletal: see HPI, neck pain Skin: no symptoms reported Psychiatric/Neurological: No Symptoms Reported Past Tcvnest-Gfvsbs-[place] Hx Patient Social History Type Used: Cigarettes Recent Foreign Travel: No Contact w/Someone Who Travel: No Immunizations Up To Date Tetanus Booster (TDap): Unknown Past Medical History Surgeries: Yes (SURGERY FOR TRIGEMINAL NEURALGIA) Tonsillectomy Respiratory: No Cardiac: Yes High Cholesterol, Hypertension Neurological: Yes (RIGHT TRIGMENINAL NEURALGIA) Reproductive Disorders: No Sexually Transmitted Disease: No Genitourinary: No Gastrointestinal: No Musculoskeletal: No Endocrine: No HEENT: Yes (RIGHT TRIGEMINAL NEURALGIA) Cancer: No Psychosocial: No Integumentary: No Blood Disorders: No Physical Exam Vital Signs Vital Signs - First Documented 10/18/18 16:13 Temp 96.3 Pulse 68 Resp 18 B/P (MAP) 105/58 (74) O2 Delivery Room Air Capillary Refill : Height, Weight, BMI Height: 5'1.00" Weight: 100lbs. 5.0oz. 45.567568bc; 18.6 BMI Method:Estimated General Appearance: WD/WN, no apparent distress HEENT: PERRL/EOMI, normal ENT inspection, TMs normal Neck: non-tender, full range of motion Respiratory: no respiratory distress, no accessory muscle use Gastrointestinal: normal bowel sounds, non tender Hips: bilateral hip non-tender, bilateral hip normal inspection, bilateral hip normal range of motion Legs: bilateral leg non-tender, bilateral leg normal inspection, bilateral leg normal range of motion Knees: bilateral knee non-tender, bilateral knee normal inspection, bilateral knee normal range of motion Neurologic/Psychiatric: alert, normal mood/affect, oriented x 3 Skin: normal color, warm/dry Pelvis is stable, no lower extremity pain or deformity. No obvious blood on her scalp, no chest abdomen or pelvis tenderness to palpation, no upper extremity pain or tenderness. Progress/Results/Core Measures Results/Orders My Orders Orders - SCOTT DILLON APRN Ct Head/Cervical Spine Wo (10/18/18 16:13) Vital Signs/I&O 10/18/18 16:13 Temp 96.3 Pulse 68 Resp 18 B/P (MAP) 105/58 (74) O2 Delivery Room Air Departure Impression Primary Impression: Minor head injury Qualified Codes: S09.90XA - Unspecified injury of head, initial encounter Disposition: 01 HOME, SELF-CARE Condition: Stable Departure-Patient Inst. Decision time for Depature: 17:47 Referrals: CAT RAYMUNDO MD (PCP/Family) Primary Care Physician Patient Instructions: Minor Head Injury SCOTT DILLON APRN Oct 18, 2018 16:18
--- NOTE | 2018-10-18 17:44 | Diagnostic Imaging Report ---
PROCEDURE: CT head and CT cervical spine without contrast. TECHNIQUE: Multiple contiguous axial images were obtained through the brain and cervical spine without the use of intravenous contrast. Sagittal and coronal reformations through the cervical spine were then performed. Auto Exposure Controls were utilized during the CT exam to meet ALARA standards for radiation dose reduction. INDICATION: Unwitnessed fall with head and neck injury. COMPARISON: Comparison is made with prior CT from 08/06/2018. CT HEAD: Ventricles and sulci are prominent consistent with cerebral atrophy. No sulcal effacement or midline shift is seen. No acute intra-axial or extra-axial hemorrhage is detected. Cisterns are patent. Visualized paranasal sinuses are clear. IMPRESSION: No acute intracranial process is detected. CT CERVICAL SPINE: Curvature is normal. There is minimal anterolisthesis of C3 on C4 with minimal retrolisthesis of C5 on C6. There is multilevel degenerative disc and facet disease. There is variable disc space narrowing and marginal spurring. No fractures are identified. Prevertebral tissues are normal. Odontoid is intact. IMPRESSION: Cervical spondylosis. No acute bony abnormality is detected. Dictated by: Dictated on workstation # [id number]
[2018-10-18 17:53] VITALS: BP 124/68
== END 2018-10-18 17:53 | disposition home or self-care (01) ==
LOC: EDUNIT# 15:58 → ER 16:00
DX: S09.90XA Unspecified injury of head, initial encounter (principal); I10 Essential (primary) hypertension; E78.00 Pure hypercholesterolemia, unspecified; Z90.89 Acquired absence of other organs; W01.10XA Fall on same level from slipping, tripping and stumbling with subsequent striking against unspecified object, initial encounter
CPT/HCPCS: 70450; 72125

== ENCOUNTER 2018-11-12 18:31 | Emergency (ER) | payer MEDICARE ==
[~2018-11-12] VITALS: Ht 154.9 cm; Wt 45.5 kg
--- OUTSIDE RECORDS SUMMARY | 2018-11-12 18:52 | XMS REPORT | Continuity of Care Document ---
Author Organization Unknown Address Unknown Phone Unavailable Allergies Active Description Code Type Severity Reaction Onset Reported/Identified Relationship to Patient Clinical Status Yes No Known Drug Allergies [id number] Drug Allergy Unknown N/A 07/18/2008 Medications There is no data. Problems Date Dx Coded Attending Type Code Diagnosis Diagnosed By 11/17/2009 Ot 792.1 09/06/2014 CAT RAYMUNDO MD Ot V76.12 04/15/2015 Ot V76.12 04/15/2015 Ot V76.12 04/15/2015 Ot V76.12 04/15/2015 LARRY MCPHERSON APRN Ot V76.12 04/15/2015 CAT RAYMUNDO MD Ot V76.12 05/09/2015 LARRY MCPHERSON COMMUNITY SERVICES COORDINATOR Ot M16.11 05/09/2015 LARRY MCPHERSON R COMMUNITY SERVICES COORDINATOR Ot M47.892 05/09/2015 LARRY MCPHERSON R COMMUNITY SERVICES COORDINATOR Ot M85.89 05/09/2015 LARRY MCPHERSON COMMUNITY SERVICES COORDINATOR Ot S00.03XA 05/15/2015 LARRY MCPHERSON R COMMUNITY SERVICES COORDINATOR Ot M16.11 05/15/2015 VIDA LARRY R COMMUNITY SERVICES COORDINATOR Ot M47.892 05/15/2015 VIDA LARRY R COMMUNITY SERVICES COORDINATOR Ot M85.89 05/15/2015 LARRY MCPHERSON COMMUNITY SERVICES COORDINATOR Ot S00.03XA 07/15/2015 LARRY MCPHERSON COMMUNITY SERVICES COORDINATOR Ot Z12.31 07/24/2015 LARRY MCPHERSON COMMUNITY SERVICES COORDINATOR Ot R92.8 08/06/2015 LARRY MCPHERSON COMMUNITY SERVICES COORDINATOR Ot Z12.31 ENCNTR SCREEN MAMMOGRAM FOR MALIGNANT [...] MAMMO-MALIGN NEOPLASM OF [place] 07/27/2016 LARRY MCPHERSON COMMUNITY SERVICES COORDINATOR Ot M16.11 UNILATERAL PRIMARY OSTEOARTHRITIS, RIGHT 07/27/2016 LARRY MCPHERSON COMMUNITY SERVICES COORDINATOR Ot M47.892 OTHER SPONDYLOSIS, CERVICAL REGION 07/27/2016 LARRY MCPHERSON COMMUNITY SERVICES COORDINATOR Ot M85.89 OTH DISRD OF BONE DENSITY AND STRUCTURE, 07/27/2016 LARRY MCPHERSON COMMUNITY SERVICES COORDINATOR Ot S00.03XA CONTUSION OF SCALP, INITIAL ENCOUNTER [...] MAMMO-MALIGN NEOPLASM OF [place] 08/06/2016 LARRY MCPHERSON COMMUNITY SERVICES COORDINATOR Ot M16.11 UNILATERAL PRIMARY OSTEOARTHRITIS, RIGHT 08/06/2016 LARRY MCPHERSON COMMUNITY SERVICES COORDINATOR Ot M47.892 OTHER SPONDYLOSIS, CERVICAL REGION 08/06/2016 LARRY MCPHERSON COMMUNITY SERVICES COORDINATOR Ot M85.89 OTH DISRD OF BONE DENSITY AND STRUCTURE, 08/06/2016 LARRY MCPHERSON COMMUNITY SERVICES COORDINATOR Ot S00.03XA CONTUSION OF SCALP, INITIAL ENCOUNTER 08/06/2016 LARRY MCPHERSON COMMUNITY SERVICES COORDINATOR Ot Z12.31 ENCNTR SCREEN MAMMOGRAM FOR MALIGNANT NE 08/06/2016 LARRY MCPHERSON COMMUNITY SERVICES COORDINATOR Ot R92.8 OTH ABN AND INCONCLUSIVE FINDINGS ON DX 08/06/2016 CAT RAYMUNDO MD Ot D69.6 THROMBOCYTOPENIA, UNSPECIFIED 08/06/2016 CAT RAYMUNDO MD Ot D72.819 DECREASED WHITE BLOOD CELL COUNT, UNSPEC 08/06/2016 CAT RAYMUNDO MD Ot Z12.31 ENCNTR SCREEN MAMMOGRAM FOR MALIGNANT NE 08/06/2016 LARRY MCPHERSON COMMUNITY SERVICES COORDINATOR Ot R92.2 INCONCLUSIVE MAMMOGRAM 08/06/2016 LARRY MCPHERSON COMMUNITY SERVICES COORDINATOR Ot R92.2 INCONCLUSIVE MAMMOGRAM 08/09/2016 Ot V76.12 OTH SCREEN MAMMO- MALIGN NEOPLASM OF [place] 08/09/2016 Ot V76.12 OTH SCREEN MAMMO- MALIGN NEOPLASM OF [place] 08/09/2016 LARRY MCPHERSON COMMUNITY SERVICES COORDINATOR Ot V76.12 OTH SCREEN MAMMO-MALIGN NEOPLASM OF [place] 08/09/2016 CAT RAYMUNDO MD Ot V76.12 OTH SCREEN MAMMO-MALIGN NEOPLASM OF [place] 08/09/2016 LARRY MCPHERSON COMMUNITY SERVICES COORDINATOR Ot M16.11 UNILATERAL PRIMARY OSTEOARTHRITIS, RIGHT 08/09/2016 LARRY MCPHERSON COMMUNITY SERVICES COORDINATOR Ot M47.892 OTHER SPONDYLOSIS, CERVICAL REGION 08/09/2016 LARRY MCPHERSON COMMUNITY SERVICES COORDINATOR Ot M85.89 OTH DISRD OF BONE DENSITY AND STRUCTURE, 08/09/2016 LARRY MCPHERSON COMMUNITY SERVICES COORDINATOR Ot S00.03XA CONTUSION OF SCALP, INITIAL ENCOUNTER 08/09/2016 LARRY MCPHERSON COMMUNITY SERVICES COORDINATOR Ot Z12.31 ENCNTR SCREEN MAMMOGRAM FOR MALIGNANT NE 08/09/2016 LARRY MCPHERSON COMMUNITY SERVICES COORDINATOR Ot R92.8 OTH ABN AND INCONCLUSIVE FINDINGS ON DX 08/09/2016 CAT RAYMUNDO MD Ot D69.6 THROMBOCYTOPENIA, UNSPECIFIED 08/09/2016 CAT RAYMUNDO MD Ot D72.819 DECREASED WHITE BLOOD CELL COUNT, UNSPEC 08/09/2016 CAT RAYMUNDO MD Ot Z12.31 ENCNTR SCREEN MAMMOGRAM FOR MALIGNANT NE 08/09/2016 LARRY MCPHERSON COMMUNITY SERVICES COORDINATOR Ot R92.2 INCONCLUSIVE MAMMOGRAM 08/09/2016 LARRY MCPHERSON APRN Ot R92.2 INCONCLUSIVE MAMMOGRAM 08/11/2016 LARRY MCPHERSON APRN Ot R92.8 OTH ABN AND INCONCLUSIVE FINDINGS ON DX 08/17/2016 CAT RAYMUNDO MD Ot Z12.31 ENCNTR SCREEN MAMMOGRAM FOR MALIGNANT NE 09/03/2016 LARRY MCPHERSON COMMUNITY SERVICES COORDINATOR Ot R92.8 OTH ABN AND INCONCLUSIVE FINDINGS [...] UNILATERAL PRIMARY OSTEOARTHRITIS, RIGHT 07/28/2017 LARRY MCPHERSON COMMUNITY SERVICES COORDINATOR Ot M47.892 OTHER SPONDYLOSIS, CERVICAL REGION 07/28/2017 LARRY MCPHERSON APRN Ot M85.89 OTH DISRD OF BONE DENSITY AND STRUCTURE, 07/28/2017 LARRY MCPHERSON COMMUNITY SERVICES COORDINATOR Ot S00.03XA CONTUSION OF SCALP, INITIAL ENCOUNTER 07/28/2017 LARRY MCPHERSON COMMUNITY SERVICES COORDINATOR Ot Z12.31 ENCNTR SCREEN MAMMOGRAM FOR MALIGNANT [...] NICOTINE DEPENDENCE, CIGARETTES, UNCOMPL 07/17/2018 LETICIA BAE MD Ot I10 ESSENTIAL (PRIMARY) HYPERTENSION 07/17/2018 LETICIA BAE MD Ot 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, UNSTAGE 07/17/2018 LETICIA BAE MD Ot L89.320 PRESSURE ULCER OF LEFT BUTTOCK, UNSTAGEA 07/17/2018 LETICIA BAE MD Ot L89.890 PRESSURE ULCER [...] OTH SCREEN MAMMO-MALIGN NEOPLASM OF [place] 07/20/2018 CAT RAYMUNDO MD Ot V76.12 OTH SCREEN [...] INCONCLUSIVE FINDINGS ON DX 07/20/2018 CAT RAYMUNDO MD, Ot D69.6 THROMBOCYTOPENIA, UNSPECIFIED 07/20/2018 CAT RAYMUNDO MD, Ot D72.819 DECREASED WHITE BLOOD CELL COUNT, UNSPEC 07/20/2018 CAT RAYMUNDO MD, Ot Z12.31 ENCNTR [...] MAMMOGRAM FOR MALIGNANT NE 07/25/2018 LARRY MCPHERSON COMMUNITY SERVICES COORDINATOR Ot V76.12 OTH SCREEN MAMMO-MALIGN NEOPLASM OF [place] 07/25/2018 CAT RAYMUNDO MD Ot V76.12 OTH SCREEN MAMMO-MALIGN NEOPLASM OF [place] 07/25/2018 LARRY MCPHERSON COMMUNITY SERVICES COORDINATOR Ot M16.11 UNILATERAL PRIMARY OSTEOARTHRITIS, RIGHT 07/25/2018 LARRY MCPHERSON COMMUNITY SERVICES COORDINATOR Ot M47.892 OTHER SPONDYLOSIS, CERVICAL REGION 07/25/2018 LARRY MCPHERSON COMMUNITY SERVICES COORDINATOR Ot M85.89 OTH DISRD OF BONE DENSITY AND STRUCTURE, 07/25/2018 LARRY MCPHERSON APRN Ot S00.03XA CONTUSION OF SCALP, INITIAL ENCOUNTER 07/25/2018 LARRY MCPHERSON COMMUNITY SERVICES COORDINATOR Ot Z12.31 ENCNTR SCREEN MAMMOGRAM FOR MALIGNANT NE 07/25/2018 LARRY MCPHERSON APRN Ot R92.8 OTH ABN AND INCONCLUSIVE FINDINGS ON DX 07/25/2018 CAT RAYMUNDO MD, Ot D69.6 THROMBOCYTOPENIA, UNSPECIFIED 07/25/2018 CAT RAYMUNDO MD Ot D72.819 DECREASED WHITE BLOOD CELL COUNT, UNSPEC 07/25/2018 CAT RAYMUNDO MD Ot Z12.31 ENCNTR SCREEN MAMMOGRAM FOR MALIGNANT NE 07/25/2018 LARRY MCPHERSON COMMUNITY SERVICES COORDINATOR Ot R92.8 OTH ABN AND INCONCLUSIVE FINDINGS [...] R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 08/06/2018 SCOTT DILLON APRN Ot E78.00 PURE HYPERCHOLESTEROLEMIA, UNSPECIFIED 08/06/2018 SCOTT DILLON COMMUNITY SERVICES COORDINATOR Ot I10 ESSENTIAL (PRIMARY) HYPERTENSION 08/06/2018 SCOTT DILLON APRN Ot S00.03XA CONTUSION OF SCALP, INITIAL ENCOUNTER 08/06/2018 SCOTT DILLON APRN Ot W19.XXXA UNSPECIFIED FALL, INITIAL ENCOUNTER 08/06/2018 SCOTT DILLON APRN Ot Z90.89 ACQUIRED ABSENCE OF OTHER ORGANS 08/09/2018 SCOTT DILLON APRN Ot E78.00 PURE HYPERCHOLESTEROLEMIA, UNSPECIFIED 08/09/2018 SCOTT DILLON COMMUNITY SERVICES COORDINATOR Ot I10 ESSENTIAL (PRIMARY) HYPERTENSION 08/09/2018 SCOTT DILLON APRN Ot S00.03XA CONTUSION OF SCALP, INITIAL ENCOUNTER 08/09/2018 SCOTT DILLON APRN Ot W19.XXXA UNSPECIFIED FALL, INITIAL ENCOUNTER 08/09/2018 SCOTT DILLON APRN Ot Z90.89 ACQUIRED ABSENCE OF OTHER ORGANS 08/10/2018 LARRY MCPHERSON APRN Ot 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 08/10/2018 LARRY MCPHERSON APRN Ot 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, STAGE 3 08/10/2018 LARRY MCPHERSON COMMUNITY SERVICES COORDINATOR Ot R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 08/15/2018 LARRY MCPHERSON COMMUNITY SERVICES COORDINATOR Ot 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 08/15/2018 LARRY MCPHERSON COMMUNITY SERVICES COORDINATOR Ot 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, STAGE 3 08/15/2018 LARRY MCPHERSON COMMUNITY SERVICES COORDINATOR Ot R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 08/16/2018 LARRY MCPHERSON COMMUNITY SERVICES COORDINATOR Ot 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 08/16/2018 LARRY MCPHERSON COMMUNITY SERVICES COORDINATOR Ot 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, STAGE 3 08/16/2018 LARRY MCPHERSON COMMUNITY SERVICES COORDINATOR Ot R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 08/16/2018 LARRY MCPHERSON COMMUNITY SERVICES COORDINATOR Ot 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 08/16/2018 LARRY MCPHERSON COMMUNITY SERVICES COORDINATOR Ot 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, STAGE 3 08/16/2018 LARRY MCPHERSON APRN Ot R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 08/22/2018 NATO AGUILAR MD Ot 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 08/22/2018 NATO AGUILAR MD Ot 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, STAGE 3 08/22/2018 NATO AGUILAR MD Ot R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 08/23/2018 LARRY MCPHERSON COMMUNITY SERVICES COORDINATOR Ot V76.12 OTH SCREEN MAMMO-MALIGN NEOPLASM OF [place] 08/23/2018 CAT RAYMUNDO MD Ot V76.12 OTH SCREEN MAMMO-MALIGN NEOPLASM OF [place] 08/23/2018 LARRY MCPHERSON COMMUNITY SERVICES COORDINATOR Ot M16.11 UNILATERAL PRIMARY OSTEOARTHRITIS, RIGHT 08/23/2018 LARRY MCPHERSON COMMUNITY SERVICES COORDINATOR Ot M47.892 OTHER SPONDYLOSIS, CERVICAL REGION 08/23/2018 LARRY MCPHERSON COMMUNITY SERVICES COORDINATOR Ot M85.89 OTH DISRD OF BONE DENSITY AND STRUCTURE, 08/23/2018 LARRY MCPHERSON COMMUNITY SERVICES COORDINATOR Ot S00.03XA CONTUSION OF SCALP, INITIAL ENCOUNTER 08/23/2018 LARRY MCPHERSON COMMUNITY SERVICES COORDINATOR Ot Z12.31 ENCNTR SCREEN MAMMOGRAM FOR MALIGNANT NE 08/23/2018 LARRY MCPHERSON COMMUNITY SERVICES COORDINATOR Ot R92.8 OTH ABN AND INCONCLUSIVE FINDINGS [...] MAMMOGRAM FOR MALIGNANT NE 08/23/2018 LARRY MCPHERSON COMMUNITY SERVICES COORDINATOR Ot 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 08/23/2018 LARRY MCPHERSON APRN Ot 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, STAGE 3 08/23/2018 LARRY MCPHERSON COMMUNITY SERVICES COORDINATOR Ot R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 08/23/2018 NATO AGUILAR MD Ot 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 08/23/2018 NATO AGUILAR MD Ot 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, STAGE 3 08/23/2018 NATO AGUILAR MD Ot R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 08/23/2018 LARRY MCPHERSON COMMUNITY SERVICES COORDINATOR Ot 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 08/23/2018 LARRY MCPHERSON APRN Ot 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, STAGE 3 08/23/2018 LARRY MCPHERSON COMMUNITY SERVICES COORDINATOR Ot R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 08/23/2018 LARRY MCPHERSON COMMUNITY SERVICES COORDINATOR Ot 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 08/23/2018 LARRY MCPHERSON COMMUNITY SERVICES COORDINATOR Ot 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, STAGE 3 08/23/2018 LARRY MCPHERSON COMMUNITY SERVICES COORDINATOR Ot R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 08/23/2018 LARRY MCPHERSON COMMUNITY SERVICES COORDINATOR Ot 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 08/23/2018 LARRY MCPHERSON COMMUNITY SERVICES COORDINATOR Ot 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, STAGE 3 08/23/2018 LARRY MCPHERSON R COMMUNITY SERVICES COORDINATOR Ot R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 08/25/2018 LARRY MCPHERSON R COMMUNITY SERVICES COORDINATOR Ot 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 08/25/2018 LARRY MCPHERSON R COMMUNITY SERVICES COORDINATOR Ot 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, STAGE 3 08/25/2018 LARRY MCPHERSON R COMMUNITY SERVICES COORDINATOR Ot R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 08/28/2018 VIDA, LARRY R COMMUNITY SERVICES COORDINATOR Ot 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 08/28/2018 VIDA, LARRY R COMMUNITY SERVICES COORDINATOR Ot 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, STAGE 3 08/28/2018 VIDA LARRY R COMMUNITY SERVICES COORDINATOR Ot R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 08/29/2018 LARRY MCPHERSON R COMMUNITY SERVICES COORDINATOR Ot 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 08/29/2018 VIDA LARRY R COMMUNITY SERVICES COORDINATOR Ot 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, STAGE 3 08/29/2018 LARRY MCPHERSON R COMMUNITY SERVICES COORDINATOR Ot R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 09/05/2018 LARRY MCPHERSON R COMMUNITY SERVICES COORDINATOR Ot 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 09/05/2018 VIDA LARRY R COMMUNITY SERVICES COORDINATOR Ot 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, STAGE 3 09/05/2018 LARRY MCPHERSON R COMMUNITY SERVICES COORDINATOR Ot R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 09/05/2018 VIDA LARRY R COMMUNITY SERVICES COORDINATOR Ot 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 09/05/2018 VIDA LARRY R COMMUNITY SERVICES COORDINATOR Ot 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, STAGE 3 09/05/2018 LARRY MCPHERSON R COMMUNITY SERVICES COORDINATOR Ot R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 09/07/2018 VIDA LARRY R COMMUNITY SERVICES COORDINATOR Ot 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 09/07/2018 VIDA LARRY R COMMUNITY SERVICES COORDINATOR Ot 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, STAGE 3 09/07/2018 LARRY MCPHERSON R COMMUNITY SERVICES COORDINATOR Ot R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 09/14/2018 VIDA LARRY R COMMUNITY SERVICES COORDINATOR Ot 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 09/14/2018 VIDA LARRY R COMMUNITY SERVICES COORDINATOR Ot 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, STAGE 3 09/14/2018 LARRY MCPHERSON R COMMUNITY SERVICES COORDINATOR Ot R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 10/18/2018 LARRY MCPHERSON APRN Ot V76.12 OTH SCREEN MAMMO-MALIGN NEOPLASM OF [place] 10/18/2018 CAT RAYMUNDO MD Ot V76.12 OTH SCREEN MAMMO-MALIGN NEOPLASM OF [place] 10/18/2018 LARRY MCPHERSON APRN Ot M16.11 UNILATERAL PRIMARY OSTEOARTHRITIS, RIGHT 10/18/2018 LARRY MCPHERSON APRN Ot M47.892 OTHER SPONDYLOSIS, CERVICAL REGION 10/18/2018 LARRY MCPHERSON APRN Ot M85.89 OTH DISRD OF BONE DENSITY AND STRUCTURE, 10/18/2018 LARRY MCPHERSON APRN Ot S00.03XA CONTUSION OF SCALP, INITIAL ENCOUNTER 10/18/2018 LARRY MCPHERSON APRN Ot Z12.31 ENCNTR SCREEN MAMMOGRAM FOR MALIGNANT NE 10/18/2018 LARRY MCPHERSON APRN Ot R92.8 OTH ABN AND INCONCLUSIVE FINDINGS ON DX 10/18/2018 CAT RAYMUNDO MD Ot D69.6 THROMBOCYTOPENIA, UNSPECIFIED 10/18/2018 CAT RAYMUNDO MD, Ot D72.819 DECREASED WHITE BLOOD CELL COUNT, UNSPEC 10/18/2018 CAT RAYMUNDO MD Ot Z12.31 ENCNTR SCREEN MAMMOGRAM FOR MALIGNANT NE 10/18/2018 LARRY MCPHERSON APRN Ot R92.8 OTH ABN AND INCONCLUSIVE FINDINGS ON DX 10/18/2018 AIR PARRA Ot J44.9 CHRONIC OBSTRUCTIVE PULMONARY DISEASE, U 10/18/2018 ARI PARRA Ot M16.11 UNILATERAL PRIMARY OSTEOARTHRITIS, RIGHT 10/18/2018 ARI PARRA Ot W19.XXXA UNSPECIFIED FALL, INITIAL ENCOUNTER 10/18/2018 CAT RAYMUNDO MD Ot Z12.31 ENCNTR SCREEN MAMMOGRAM FOR MALIGNANT NE 10/18/2018 LARRY MCPHERSON APRN Ot 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 10/18/2018 LARRY MCPHERSON APRN Ot 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, STAGE 3 10/18/2018 LARRY MCPHERSON APRN Ot R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 10/18/2018 NATO AGUILAR MD Ot 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 10/18/2018 NATO AGUILAR MD Ot 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, STAGE 3 10/18/2018 LAUREN JUDD, NATO Cordova Ot R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 10/18/2018 LARRY MCPHERSON COMMUNITY SERVICES COORDINATOR Ot 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 10/18/2018 LARRY MCPHERSON COMMUNITY SERVICES COORDINATOR Ot 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, STAGE 3 10/18/2018 LARRY MCPHERSON COMMUNITY SERVICES COORDINATOR Ot R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 10/18/2018 LARRY MCPHERSON COMMUNITY SERVICES COORDINATOR Ot 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 10/18/2018 VIDA LARRY R COMMUNITY SERVICES COORDINATOR Ot 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, STAGE 3 10/18/2018 LARRY MCPHERSON APRN Ot R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 10/18/2018 LARRY MCPHERSON COMMUNITY SERVICES COORDINATOR Ot 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 10/18/2018 LARRY MCPHERSON COMMUNITY SERVICES COORDINATOR Ot 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, STAGE 3 10/18/2018 LARRY MCPHERSON COMMUNITY SERVICES COORDINATOR Ot R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 10/18/2018 LARRY MCPHERSON COMMUNITY SERVICES COORDINATOR Ot 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 10/18/2018 LARRY MCPHERSON COMMUNITY SERVICES COORDINATOR Ot 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, STAGE 3 10/18/2018 LARRY MCPHERSON APRN Ot R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 10/18/2018 LARRY MCPHERSON COMMUNITY SERVICES COORDINATOR Ot V76.12 OTH SCREEN MAMMO-MALIGN NEOPLASM OF [place]KE[place] 10/18/2018 ZACKARY JUDD, CAT Gonzalez Ot V76.12 OTH SCREEN MAMMO-MALIGN NEOPLASM OF [place] 10/18/2018 LARRY MCPHERSON APRN Ot M16.11 UNILATERAL PRIMARY OSTEOARTHRITIS, RIGHT 10/18/2018 LARRY MCPHERSON APRN Ot M47.892 OTHER SPONDYLOSIS, CERVICAL REGION 10/18/2018 LARRY MCPHERSON APRN Ot M85.89 OTH DISRD OF BONE DENSITY AND STRUCTURE, 10/18/2018 LARRY MCPHERSON COMMUNITY SERVICES COORDINATOR Ot S00.03XA CONTUSION OF SCALP, INITIAL ENCOUNTER 10/18/2018 LARRY MCPHERSON APRN Ot Z12.31 ENCNTR SCREEN MAMMOGRAM FOR MALIGNANT NE 10/18/2018 LARRY MCPHERSON APRN Ot R92.8 OTH ABN AND INCONCLUSIVE FINDINGS ON DX 10/18/2018 CAT RAYMUNDO MD Ot D69.6 THROMBOCYTOPENIA, UNSPECIFIED 10/18/2018 CAT RAYMUNDO MD Ot D72.819 DECREASED WHITE BLOOD CELL COUNT, UNSPEC 10/18/2018 CAT RAYMUNDO MD Ot Z12.31 ENCNTR SCREEN MAMMOGRAM FOR MALIGNANT NE 10/18/2018 LARRY MCPHERSON APRN Ot R92.8 OTH ABN AND INCONCLUSIVE FINDINGS ON DX 10/18/2018 ARI PARRA Ot J44.9 CHRONIC OBSTRUCTIVE PULMONARY DISEASE, U 10/18/2018 ARI PARRA Ot M16.11 UNILATERAL PRIMARY OSTEOARTHRITIS, RIGHT 10/18/2018 ARI PARRA Ot W19.XXXA UNSPECIFIED FALL, INITIAL ENCOUNTER 10/18/2018 CAT RAYMUNDO MD Ot Z12.31 ENCNTR SCREEN MAMMOGRAM FOR MALIGNANT NE 10/18/2018 LARRY MCPHERSON APRN Ot 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 10/18/2018 LARRY MCPHERSON APRN Ot 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, STAGE 3 10/18/2018 LARRY MCPHERSON COMMUNITY SERVICES COORDINATOR Ot R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 10/18/2018 NATO AGUILAR MD Ot 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 10/18/2018 NATO AGUILAR MD Ot 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, STAGE 3 10/18/2018 NATO AGUILAR MD Ot R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 10/18/2018 LARRY MCPHERSON APRN Ot 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 10/18/2018 LARRY MCPHERSON APRN Ot 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, STAGE 3 10/18/2018 LARRY MCPHERSON APRN Ot R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 10/18/2018 LARRY MCPHERSON APRN Ot 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 10/18/2018 LARRY MCPHERSON APRN Ot 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, STAGE 3 10/18/2018 LARRY MCPHERSON APRN Ot R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 10/18/2018 LARRY MCPHERSON APRN Ot 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 10/18/2018 LARRY MCPHERSON COMMUNITY SERVICES COORDINATOR Ot 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, STAGE 3 10/18/2018 LARRY MCPHERSON APRN Ot R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 10/18/2018 LARRY MCPHERSON APRN Ot 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 10/18/2018 LARRY MCPHERSON APRN Ot 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, STAGE 3 10/18/2018 LARRY MCPHERSON APRN Ot R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 10/18/2018 SCOTT DILLON APRN Ot E78.00 PURE HYPERCHOLESTEROLEMIA, UNSPECIFIED 10/18/2018 SCOTT DILLON APRN Ot I10 ESSENTIAL (PRIMARY) HYPERTENSION 10/18/2018 SCOTT DILLON APRN Ot S09.90XA UNSPECIFIED INJURY OF HEAD, INITIAL ENCO 10/18/2018 SCOTT DILLON APRN Ot W01.10XA FALL SAME LEV FROM SLIP/TRIP W STRIKE AG 10/18/2018 SCOTT DILLON APRN Ot Z90.89 ACQUIRED ABSENCE OF OTHER ORGANS 10/23/2018 SCOTT DILLON APRN Ot E78.00 PURE HYPERCHOLESTEROLEMIA, UNSPECIFIED 10/23/2018 SCOTT DILLON APRN Ot I10 ESSENTIAL (PRIMARY) HYPERTENSION 10/23/2018 SCOTT DILLON APRN Ot S09.90XA UNSPECIFIED INJURY OF HEAD, INITIAL ENCO 10/23/2018 SCOTT DILLON APRN Ot W01.10XA FALL SAME LEV FROM SLIP/TRIP W STRIKE AG 10/23/2018 SCOTT DILLON APRN Ot Z90.89 ACQUIRED ABSENCE OF OTHER ORGANS Procedures There is no data. Results Test [...] Status Pt. Type Provider Facility Loc./Unit Complaint [id number] 10/18/2018 16:00:00 10/18/2018 17:53:00 DIS Emergency SCOTT DILLON APRN [facility] ER FALL [id number] 08/29/2018 10:58:00 08/29/2018 23:59:59 CLS Outpatient LARRY MCPHERSON COMMUNITY SERVICES COORDINATOR [facility] WOUNDCARE [id number] 08/22/2018 16:03:00 08/22/2018 23:59:59 CLS Outpatient LARRY MCPHERSON COMMUNITY SERVICES COORDINATOR [facility] WOUNDCARE [id number] 08/15/2018 11:02:00 08/15/2018 23:59:59 CLS Outpatient LARRY MCPHERSON COMMUNITY SERVICES COORDINATOR [facility] WOUNDC[facility] [id number] 08/08/2018 11:03:00 08/08/2018 23:59:59 CLS Outpatient LARRY MCPHERSON COMMUNITY SERVICES COORDINATOR [facility] WOUNDCARE [id number] 08/06/2018 12:45:00 08/06/2018 14:40:00 DIS Emergency SCOTT DILLON COMMUNITY SERVICES COORDINATOR [facility] ER FALL [id number] 08/01/2018 14:34:00 08/01/2018 23:59:59 CLS Outpatient NATO AGUILAR MD [facility] WOUNDCARE [id number] 07/25/2018 08:17:00 07/25/2018 23:59:59 CLS Outpatient LARRY MCPHERSON COMMUNITY SERVICES COORDINATOR [facility] WOUNDC[facility] [id number] 07/16/2018 19:25:00 07/19/2018 14:04:00 DIS Inpatient LETICIA BAE MD [facility] 4TH GENERALIZED WEAKNESS; DECUBITUS ULCERS- BUTTOCKS [id number] 07/28/2017 09:46:00 07/28/2017 23:59:59 CLS Outpatient CAT RAYMUNDO MD [facility] RAD SCREENING [id number] 04/14/2017 11:06:00 04/14/2017 23:59:59 CLS Outpatient ARI PARRA [facility] RAD R07.82, M25.551 [id number] 08/09/2016 07:52:00 08/09/2016 23:59:59 CLS Outpatient LARRY MCPHERSON [employer] COORDINATOR [facility] RAD R92.8 [id number] 07/27/2016 07:55:00 07/27/2016 23:59:59 CLS Outpatient CAT RAYMUNDO MD [facility] RAD SCREENING [id number] 11/11/2015 07:19:00 11/11/2015 23:59:59 CLS Outpatient CAT RAYMUNDO MD [facility] LAB THROMBOCYTOPENIA [id number] 07/24/2015 08:41:00 07/24/2015 23:59:59 CLS Outpatient LARRY MCPHERSON APRN [facility] RAD ABNORMAL MAMMO [id number] 07/14/2015 10:19:00 07/14/2015 23:59:59 CLS Outpatient LARRY MCPHERSON [employer] COORDINATOR [facility] RAD SCREENING [id number] 04/15/2015 15:31:00 04/15/2015 23:59:59 CLS Outpatient LARRY MCPHERSON APRN [facility] RAD POST FALL AT HOME [id number] 07/10/2014 07:01:00 07/10/2014 23:59:59 CLS Outpatient CAT RAYMUNDO MD [facility] RAD SCREENING [id number] 07/09/2013 08:24:00 07/09/2013 23:59:59 CLS Outpatient LARRY MCPHERSON APRN [facility] RAD ROUTINE [id number] 07/06/2012 06:39:00 Document Registration [id number] 07/01/2011 07:04:00 Document Registration [id number] 06/29/2010 06:57:00 Document Registration [id number] 11/17/2009 09:18:00 Document Registration
--- NOTE | 2018-11-12 19:14 | Diagnostic Imaging Report ---
PROCEDURE: CT head and CT cervical spine without contrast. TECHNIQUE: Multiple contiguous axial images were obtained through the brain and cervical spine without the use of intravenous contrast. Sagittal and coronal reformations through the cervical spine were then performed. Auto Exposure Controls were utilized during the CT exam to meet ALARA standards for radiation dose reduction. INDICATION: Fall, head pain. COMPARISON: Exam compared with study of 10/18/2018. FINDINGS: Head: Cerebrocortical atrophy and periventricular white matter disease are stable chronic findings. There is no hemorrhage or fracture deformity. No edema or hydrocephalus. Paranasal sinuses are nonacute. CT cervical spine: Degenerative changes to the discs, endplates, facets, and uncovertebral joints on a chronic basis are stable and result in [id number] chronic canal stenosis at C5-C6 and C6-C7 with multilevel foraminal narrowing, also unchanged. No fracture, paravertebral hemorrhage, fluid collection, or traumatic malalignment. There are dense vascular calcifications of the carotids, chronic. IMPRESSION: 1. CT head: Stable chronic findings. No acute-appearing abnormality. 2. CT cervical spine: Degenerative changes and multilevel stenosis, chronic. No fracture or traumatic malalignment. Dictated by: Dictated on workstation # [id number]
--- NOTE | 2018-11-12 19:20 | ED Trauma-Multisystem ---
General Chief Complaint: Trauma-Non Activation Stated Complaint: FALL Nursing Triage Note: PT WAS AT [facility]. PT WAS LEANING UP AGAINST A ROLLING CART. PT FELL FROM STANDING. PT HIT HEAD AND C/O KNOT ON BACK OF HEAD. PT DENIES BLOOD THINNERS. PT HAS HISTORY OF AGITATION AND DEMENTIA. PT HAD AGITATION EPISODES TODAY. PT C/O LEFT SI JOINT PAIN. PT IN CCOLLAR UPON ARRIVAL. History of Present Illness Date Seen by Provider: Nov 12, 2018 Time Seen by Provider: 18:45 Initial Comments 73-year-old female brought for fall with head and neck injury. She was placed in a c-collar [facility] [employer]. He was leaning on a cart with wheels on the cart moved causing her to fall and hit her head. It was witnessed by staff. She denies blood thinners or anticoagulants. No bleeding or laceration. Patient also complains of left SI pain from fall. No other pain or requests. She is alert and oriented. Occurred: Just Prior to Arrival Pain/Injury Location: Head, Lower Extremity (left SI joint) Method of Injury: Fall Loss of Consciousness: No Loss of Consciousness Associated Symptoms (Fall): Denies Symptoms Allergies and Home Medications Allergies Coded Allergies: No Known Drug Allergies (Verified , 07/18/08) Home Medications Amlodipine Besylate 5 Mg Tablet, 5 MG PO DAILY, (Reported) LAST FILLED #30 2 Atenolol 50 Mg Tablet, 50 MG PO BID, (Reported) LAST FILLED #90 05-08-18 Carbamazepine 200 Mg Tablet, 200 MG PO BID, (Reported) LAST FILLED #60 06-12-18 Loperamide HCl 2 Mg Capsule, 2 MG PO UD PRN for DIARRHEA, (Reported) Patient Home Medication List Home Medication List Reviewed: Yes Review of Systems Review of Systems Constitutional: no symptoms reported, see HPI Eyes: No Symptoms Reported, See HPI Musculoskeletal: see HPI, neck pain Skin: see HPI, other (small contusion to left occipital) All Other Systems Reviewed Negative Unless Noted: Yes Past Sjcalyt-Adgebt-Tazhni Hx Patient Social History Alcohol Use: Denies Use Recreational Drug Use: No Type Used: Cigarettes 2nd Hand Smoke Exposure: No Recent Foreign Travel: No Contact w/Someone Who Travel: No Recent Infectious Disease Expo: No Recent Hopitalizations: No Physical Abuse: No Sexual Abuse: No Mistreated: No Fear: No Immunizations Up To Date Tetanus Booster (TDap): Unknown Seasonal Allergies Seasonal Allergies: No Past Medical History Surgeries: Yes (SURGERY FOR TRIGEMINAL NEURALGIA) Tonsillectomy Respiratory: No Cardiac: Yes High Cholesterol, Hypertension Neurological: Yes (RIGHT TRIGMENINAL NEURALGIA) Reproductive Disorders: No Sexually Transmitted Disease: No Genitourinary: No Gastrointestinal: No Musculoskeletal: No Endocrine: No HEENT: Yes (RIGHT TRIGEMINAL NEURALGIA) Cancer: No Psychosocial: No Integumentary: No Blood Disorders: No Physical Exam Vital Signs Vital Signs - First Documented 11/12/18 18:43 Temp 97.6 Pulse 58 Resp 18 B/P (MAP) 125/72 (89) Pulse Ox 99 O2 Delivery Room Air Height, Weight, BMI Height: 5'1.00" Weight: 100lbs. 5.0oz. 45.039154ro; 18.6 BMI Method:Estimated General Appearance: No Apparent Distress, WD/WN Head: No Evidence of Injury, Swelling (trace left occipital); No Active Bleeding, No Masters's Sign, No Contusions, No Ecchymosis, No Lacerations Eyes: Bilateral Eye Normal Inspection, Bilateral Eye PERRL, Bilateral Eye EOMI Ears, Nose, Throat: Hearing Grossly Normal, No Evidence of ENT Injury, No Dental Injury Neck: Normal Inspection, Supple, Other (ROM not assessed, C-collar in place) Cardiovascular: Regular Rate, Rhythm, No Edema, No Murmur, Normal Peripheral Pulses Respiratory: Chest Non Tender, Lungs Clear, Normal Breath Sounds Gastrointestinal: Normal Bowel Sounds, Non Tender, Soft Extremity: Normal Capillary Refill, Normal Inspection, Normal Range of Motion, Other (tenderness to palpation over left SI joint, full range of motion to left and right hips) Neurologic/Psychiatric: Alert, No Motor/Sensory Deficits, Normal Mood/Affect Skin: Normal Color, Warm/Dry [place] Coma Score Best Eye Response (Nura): (4) Open Spontaneously Best Verbal Response (Nura): (5) Oriented Best Motor Response ([place]): (6) Obeys Commands Nura Total: 15 Progress/Results/Core Measures Results/Orders My Orders Orders - GREGORY ORTIZ Ct Head/Cervical Spine Wo (11/12/18 18:38) Pelvis With Left Hip 2-3 Views (11/12/18 18:42) Vital Signs/I&O 11/12/18 18:43 Temp 97.6 Pulse 58 Resp 18 B/P (MAP) 125/72 (89) Pulse Ox 99 O2 Delivery Room Air 2 Blood Pressure Mean: 89 Progress Progress Note : Time: 18:45 Progress Note Patient seen and evaluated, c-collar left in place, CT of head and neck, x-ray pelvis and left 1918 C-collar removed, patient had full ROM to c-spine, no deficits in either UE. Neuro-vasc status intact. Patient denies headache or need for tylenol for hip/SI pain. 1929 Attempting to contact [facility] for transfer back. Diagnostic Imaging Diagonstic Imaging: CT Plain Films/CT/US/NM/MRI: c-spine, head Comments NAME: LAURA MCCRACKEN [facility] REC#: [id number] PT STATUS: REG ER : 1945 PHYSICIAN: GREGORY ORTIZ ADMIT DATE: 11/12/18/ER Draft Date of Exam:11/12/18 CT HEAD/CERVICAL SPINE WO PROCEDURE: CT head and CT cervical spine without contrast. TECHNIQUE: Multiple contiguous axial images were obtained through the brain and cervical spine without the use of intravenous contrast. Sagittal and coronal reformations through the cervical spine were then performed. Auto Exposure Controls were utilized during the CT exam to meet ALARA standards for radiation dose reduction. INDICATION: Fall, head pain. COMPARISON: Exam compared with study of 10/18/2018. FINDINGS: Head: Cerebrocortical atrophy and periventricular white matter disease are stable chronic findings. There is no hemorrhage or fracture deformity. No edema or hydrocephalus. Paranasal sinuses are nonacute. CT cervical spine: Degenerative changes to the discs, endplates, facets, and uncovertebral joints on a chronic basis are stable and result in [id number] chronic canal stenosis at C5-C6 and C6-C7 with multilevel foraminal narrowing, also unchanged. No fracture, paravertebral hemorrhage, fluid collection, or traumatic malalignment. There are dense vascular calcifications of the carotids, chronic. IMPRESSION: 1. CT head: Stable chronic findings. No acute-appearing abnormality. 2. CT cervical spine: Degenerative changes and multilevel stenosis, chronic. No fracture or traumatic malalignment. Dictated on workstation # [id number] Dict: 11/12/181906 Trans: 11/12/181912 AS6 [id number] Interpreted by: CRISTOBAL HANSEN Electronically signed by: Reviewed: Reviewed by Me Departure Impression Primary Impression: Fall Qualified Codes: W19.XXXA - Unspecified fall, initial encounter Additional Impressions: Head injury Qualified Codes: S09.90XA - Unspecified injury of head, initial encounter Pain of left sacroiliac joint Disposition: HOME, SELF-CARE Condition: Improved Departure-Patient Inst. Decision time for Depature: 19:30 Referrals: CAT RAYMUNDO MD (PCP/Family) Primary Care Physician Patient Instructions: Minor Head Injury (DC) Add. Discharge Instructions: Activity as tolerated. Fall prevention. Tylenol 650 mg every 6-8 hours as needed for headache or pain. Follow-up with primary care provider if symptoms worsen or new complaints. Ice for 20 minutes to any areas of tenderness. Return to emergency department for changes in mental status, seizure activity, or new complaints All discharge instructions reviewed with patient and/or family. Voiced understanding. GREGORY ORTIZ Nov 12, 2018 19:19
--- NOTE | 2018-11-12 19:21 | Diagnostic Imaging Report ---
INDICATION: Fall, pain FINDINGS: AP pelvis and two-view left hip showed no fracture or dislocation. No apparent change when compared with AP pelvic radiograph 07/16/2018. There are chronic arthritic changes to the left greater than right hips, vascular calcifications and lower lumbar spondylosis. IMPRESSION: No acute appearing abnormality Dictated by: Dictated on workstation # [id number]
[2018-11-12 20:19] VITALS: BP 125/72
== END 2018-11-12 20:19 | disposition home or self-care (01) ==
LOC: EDUNIT# 18:31 → ER 18:32
DX: S09.90XA Unspecified injury of head, initial encounter (principal); G89.11 Acute pain due to trauma; M53.3 Sacrococcygeal disorders, not elsewhere classified; F03.90 Unspecified dementia, unspecified severity, without behavioral disturbance, psychotic disturbance, mood disturbance, and anxiety; I10 Essential (primary) hypertension; E78.00 Pure hypercholesterolemia, unspecified; R40.2142 Coma scale, eyes open, spontaneous, at arrival to emergency department; R40.2252 Coma scale, best verbal response, oriented, at arrival to emergency department; R40.2362 Coma scale, best motor response, obeys commands, at arrival to emergency department; Z90.89 Acquired absence of other organs; W01.198A Fall on same level from slipping, tripping and stumbling with subsequent striking against other object, initial encounter
CPT/HCPCS: 70450; 72125

== ENCOUNTER 2018-11-17 14:50 | Emergency (ER) | payer MEDICARE ==
[~2018-11-17] VITALS: Ht 154.9 cm; Wt 45.5 kg
--- NOTE | 2018-11-17 14:56 | ED Fall/Injury ---
General Stated Complaint: FALL Source: patient, EMS Exam Limitations: no limitations History of Present Illness Date Seen by Provider: Nov 17, 2018 Time Seen by Provider: 14:54 Initial Comments This is demented 73-year-old female to ER per EMS from via [facility] with reports of a fall and head injury. She has some abrasions to the right side of the forehead. She states that she fell while roller skating last week and then fell again today when she tripped at work. Neither these are factual. Occurred: just prior to arrival Severity: moderate Injuries/Pain Location: head Context: unknown Loss of Consciousness: no loss of consciousness Associated Symptoms (Fall): Denies Symptoms; No Nausea/Vomiting Allergies and Home Medications Allergies Coded Allergies: No Known Drug Allergies (Verified , 07/18/08) Home Medications Amlodipine Besylate 5 Mg Tablet, 5 MG PO DAILY, (Reported) LAST FILLED #30 05-19-18 Atenolol 50 Mg Tablet, 50 MG PO BID, (Reported) LAST FILLED #90 05-08-18 Carbamazepine 200 Mg Tablet, 200 MG PO BID, (Reported) LAST FILLED #60 06-12-18 Loperamide HCl 2 Mg Capsule, 2 MG PO UD PRN for DIARRHEA, (Reported) Patient Home Medication List Home Medication List Reviewed: Yes Review of Systems Review of Systems Constitutional: see HPI Eyes: No Symptoms Reported Ears, Nose, Mouth, Throat: no symptoms reported Respiratory: no symptoms reported Cardiovascular: no symptoms reported Genitourinary: no symptoms reported Musculoskeletal: no symptoms reported Skin: no symptoms reported Psychiatric/Neurological: No Symptoms Reported Past Xwypqec-Uzqgsw-Vqahab Hx Patient Social History Type Used: Cigarettes 2nd Hand Smoke Exposure: No Recent Hopitalizations: No Immunizations Up To Date Tetanus Booster (TDap): Unknown Seasonal Allergies Seasonal Allergies: No Past Medical History Surgeries: Yes (SURGERY FOR TRIGEMINAL NEURALGIA) Tonsillectomy Respiratory: No Cardiac: Yes High Cholesterol, Hypertension Neurological: Yes (RIGHT TRIGMENINAL NEURALGIA) Reproductive Disorders: No Sexually Transmitted Disease: No Genitourinary: No Gastrointestinal: No Musculoskeletal: No Endocrine: No HEENT: Yes (RIGHT TRIGEMINAL NEURALGIA) Cancer: No Psychosocial: No Integumentary: No Blood Disorders: No Physical Exam Vital Signs Vital Signs - First Documented 11/17/18 11/17/18 14:51 17:09 Temp 100.0 Pulse 74 Resp 18 B/P (MAP) 116/67 (83) Pulse Ox 98 O2 Flow Rate 98.00 Capillary Refill : Height, Weight, BMI Height: 5'1.00" Weight: 100lbs. 5.0oz. 45.946529ro; 18.6 BMI Method:Estimated General Appearance: WD/WN, no apparent distress HEENT: PERRL/EOMI, normal ENT inspection, other (abrasion over the right forehead. Alert, oriented to person. Very pleasant) Neck: non-tender, full range of motion Respiratory: no respiratory distress, no accessory muscle use Gastrointestinal: normal bowel sounds, non tender, soft Pelvic: other (full range of motion of the hips, pelvis is stable, no deformity or pain in any of the extremities) Neurologic/Psychiatric: alert, normal mood/affect, oriented x 3 Skin: normal color, warm/dry [place] Coma Score Best Eye Response: (4) Open Spontaneously Best Verbal Response: (4) Confused Conversation Best Motor Response: (6) Obeys Commands Nura Total: 14 Progress/Results/Core Measures Results/Orders Lab Results Laboratory Tests Test 11/17/18 15:27 Range/Units Urine Color YELLOW Urine Clarity CLEAR Urine pH 6 5-9 Urine Specific [place] 1.020 1.016-1.022 Urine Protein 1+ H NEGATIVE Urine Glucose (UA) NEGATIVE NEGATIVE Urine Ketones NEGATIVE NEGATIVE Urine Nitrite NEGATIVE NEGATIVE Urine Bilirubin NEGATIVE NEGATIVE Urine Urobilinogen NORMAL NORMAL MG/DL Urine Leukocyte Esterase 2+ H NEGATIVE Urine RBC (Auto) NEGATIVE NEGATIVE Urine RBC NONE /HPF Urine WBC 5-10 H /HPF Urine Squamous Epithelial Cells 5-10 /HPF Urine Crystals NONE /LPF Urine Bacteria TRACE /HPF Urine Casts NONE /LPF Urine Mucus SMALL H /LPF Urine Culture Indicated YES Micro Results Microbiology 11/17/18 Urine Culture - Final, Complete NO GROWTH My Orders Orders - SCOTT DILLON APRN Ua Culture If Indicated (11/17/18 15:14) Ct Head/Cervical Spine Wo (11/17/18 15:23) Urine Culture (11/17/18 15:27) Vital Signs/I&O 11/17/18 11/17/18 14:51 17:09 Temp 100.0 100.0 Pulse 74 74 Resp 18 18 B/P (MAP) 116/67 (83) 116/67 (83) Pulse Ox 98 O2 Flow Rate 98.00 Departure Impression Primary Impression: UTI (urinary tract infection) Qualified Codes: N30.00 - Acute cystitis without hematuria Additional Impression: Fall Qualified Codes: W19.XXXA - Unspecified fall, initial encounter Disposition: HOME, SELF-CARE Condition: Stable Departure-Patient Inst. Decision time for Depature: 15:56 Referrals: CAT RAYMUNDO MD (PCP/Family) Primary Care Physician Patient Instructions: Urinary Tract Infections in Adults SCOTT DILLON CRITICAL CARE RN Nov 17, 2018 14:56
--- NOTE | 2018-11-17 15:27 | NUR ---
ASSISTED PT TO BATHROOM TO OBTAIN URINE SAMPLE, PT AMBULATES WELL WITH ASSIST X 1
[2018-11-17 15:32] LABS: BILIRUBIN,URINE NEGATIVE (NEGATIVE); CLARITY,URINE CLEAR; COLOR,URINE YELLOW; GLUCOSE, URINE (UA) NEGATIVE (NEGATIVE); KETONES,URINE NEGATIVE (NEGATIVE); LEUKOCYTE ESTERASE ,URINE 2+ (NEGATIVE); NITRITE,URINE NEGATIVE (NEGATIVE); PH,URINE 6 (5-9); PROTEIN,URINE 1+ (NEGATIVE); UROBILINOGEN,URINE NORMAL (NORMAL)
[2018-11-17 15:42] LABS: BACTERIA,URINE TRACE /HPF
--- NOTE | 2018-11-17 16:03 | NUR ---
REPORT GIVEN TO TIFFANIE AT [facility], [place], TRANSPORTATION WILL BE ARRANGED BY HER ALSO FOR DISCHARGE
--- NOTE | 2018-11-17 16:57 | NUR ---
PT SITTING QUIETLY IN ED BED, PT DENIES ANY NEEDS OR C/O, PT CONVERSES WITH ED STAFF, PT SHOWS NO S/S OF DISTRESS, VS ASSESSED AND STABLE, CONTINUING TO WAIT FOR TRANSPORTATION TO ARRIVE, WILL CONTINUE TO MONITOR
[2018-11-17 17:09] VITALS: BP 116/67
--- NOTE | 2018-11-17 19:15 | RADIOLOGY REPORT ---
NAME: LAURA MCCRACKEN [facility] REC#: [id number] PT STATUS: DEP ER : 1945 PHYSICIAN: SCOTT DILLON APRN CORRECTED ADMIT DATE: 11/12/18/ER Signed Date of Exam:11/17/18 CT HEAD/CERVICAL SPINE WO PROCEDURE: CT head and CT cervical spine without contrast. TECHNIQUE: Multiple contiguous axial images were obtained through the brain and cervical spine without the use of intravenous contrast. Sagittal and coronal reformations through the cervical spine were then performed. Auto Exposure Controls were utilized during the CT exam to meet ALARA standards for radiation dose reduction. INDICATION: Fall with head and neck injury. COMPARISON: Prior exam from 11/12/2018. CT HEAD: The ventricles and sulci are prominent, similar to prior study. There is periventricular hypodensity noted consistent with senescent change. No sulcal effacement or midline shift is detected. No acute intra-axial or extra-axial hemorrhage is detected. The cisterns are patent. Visualized paranasal sinuses are clear. IMPRESSION: Chronic and senescent changes. No acute intracranial process is detected. CT CERVICAL SPINE: Curvature of the cervical spine is normal. Minimal anterolisthesis of C3 on C4 is noted, similar to prior study. There is significant degenerative disc disease at the C5-6 and C6-7 levels with disc space narrowing and marginal spurring. No fractures are identified. Prevertebral tissues are normal. Odontoid is intact. There is multilevel facet arthropathy. IMPRESSION: Cervical spondylosis, similar to examination from 11/12/2018. No acute bony abnormality is detected. Dictated by: Dictated on workstation # [id number] Dict: 11/17/18 1515 Trans: 11/17/18 1548 [facility] [id number] Interpreted by: KENTON HENDRICKSON MD Electronically signed by: KENTON HENDRICKSON MD 11/17/18 1548 [facility]
== END 2018-11-17 17:09 | disposition home or self-care (01) ==
LOC: EDUNIT# 14:50 → ER 14:51
DX: S00.81XA Abrasion of other part of head, initial encounter (principal); N39.0 Urinary tract infection, site not specified; I10 Essential (primary) hypertension; E78.00 Pure hypercholesterolemia, unspecified; G50.0 Trigeminal neuralgia; R40.2142 Coma scale, eyes open, spontaneous, at arrival to emergency department; R40.2252 Coma scale, best verbal response, oriented, at arrival to emergency department; R40.2362 Coma scale, best motor response, obeys commands, at arrival to emergency department; Z91.81 History of falling; Z90.89 Acquired absence of other organs; W01.0XXA Fall on same level from slipping, tripping and stumbling without subsequent striking against object, initial encounter; Y92.59 Other trade areas as the place of occurrence of the external cause
CPT/HCPCS: 70450; 72125; 81000; 87088

== ENCOUNTER 2018-11-29 13:32 | Emergency (ER) | payer MEDICARE ==
[~2018-11-29] VITALS: Ht 162.6 cm; Wt 68.0 kg
--- NOTE | 2018-11-29 13:34 | NUR ---
lert but keeps here eyes closed. pt gcs 14 neg 1 for confusion. pt has h/o dimentia. pt here by rescue from local care center. ems tx includes routine transfer. pt apparantely fell from standing position back words and hit her head. on exam pt has small hematoma/ abrasion/ contusion occiptal skull. no other injuries noted in my exam . dr seen pt same time as i. pt apt relates pain " back of my head". . pt relates pain " not that bad". no acute sighns of dypsnea noted though resp may be shallow nonlabored. lungs equal cta bilaterally with decreased aeration bases bilaterally. abd w/o pain with palpation. slight edema lower ext. noted bilaterally. done rush pt 1343.
--- NOTE | 2018-11-29 13:49 | ED Fall/Injury ---
General Stated Complaint: FALL Source: patient, EMS, alf records Exam Limitations: clinical condition (moderate to late stage dementia) History of Present Illness Date Seen by Provider: Nov 29, 2018 Time Seen by Provider: 13:35 Initial Comments The patient [facility] EMS [facility] with chief complaint that she had a fall just prior to arrival. She thinks that she got caught up on her shoe as her shoe on her right foot was half off. She did strike the back of her head and has a hematoma there but denies loss of consciousness. It wasn't witnessed by staff. Blood sugars 152 vitals were okay. Not on blood thinners. She is only having pain in the back of her head but says is not bad enough to want anything for it. Allergies and Home Medications Allergies Coded Allergies: No Known Drug Allergies (Verified , 07/18/08) Home Medications Amlodipine Besylate 5 Mg Tablet, 5 MG PO DAILY, (Reported) LAST FILLED #30 05-19-18 Atenolol 50 Mg Tablet, 50 MG PO BID, (Reported) LAST FILLED #90 05-08-18 Carbamazepine 200 Mg Tablet, 200 MG PO BID, (Reported) LAST FILLED #60 06-12-18 Loperamide HCl 2 Mg Capsule, 2 MG PO UD PRN for DIARRHEA, (Reported) Patient Home Medication List Home Medication List Reviewed: Yes Review of Systems Review of Systems Constitutional: No chills, No diaphoresis Eyes: Denies Blindness, Denies Blurred Vision Ears, Nose, Mouth, Throat: denies ear pain, denies ear discharge Respiratory: No cough, No short of breath Cardiovascular: No chest pain, No edema Gastrointestinal: No abdominal pain, No nausea Genitourinary: No discharge, No dysuria Past Aextutq-Mzybbo-Wffryp Hx Patient Social History Alcohol Use: Denies Use Recreational Drug Use: No Smoking Status: Former Smoker Type Used: Cigarettes 2nd Hand Smoke Exposure: No Recent Hopitalizations: No Immunizations Up To Date Tetanus Booster (TDap): Unknown Seasonal Allergies Seasonal Allergies: No Past Medical History Surgeries: Yes (SURGERY FOR TRIGEMINAL NEURALGIA) Tonsillectomy Respiratory: No Cardiac: Yes High Cholesterol, Hypertension Neurological: Yes (RIGHT TRIGMENINAL NEURALGIA) Reproductive Disorders: No Sexually Transmitted Disease: No Genitourinary: No Gastrointestinal: No Musculoskeletal: No Endocrine: No HEENT: Yes (RIGHT TRIGEMINAL NEURALGIA) Cancer: No Psychosocial: No Integumentary: No Blood Disorders: No Physical Exam Vital Signs Vital Signs - First Documented 11/29/18 13:34 Temp 97.6 Pulse 68 Resp 16 B/P (MAP) 142/78 (99) Capillary Refill : Height, Weight, BMI Height: 5'1.00" Weight: 100lbs. 5.0oz. 45.744963wl; 18.6 BMI Method:Estimated General Appearance: WD/WN, no apparent distress HEENT: PERRL/EOMI, normal ENT inspection, TMs normal, pharynx normal, other (modest 3 cm hematoma on the occiput midline. 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, no motor/sensory deficits, alert, normal mood/affect, other (oriented to person and place but not time) Mason Coma Score Best Eye Response: (4) Open Spontaneously Best Verbal Response: (4) Confused Conversation Best Motor Response: (6) Obeys Commands Nura Total: 15 Progress/Results/Core Measures Results/Orders Lab Results Laboratory Tests Test 11/29/18 13:44 Range/Units White Blood Count 4.6 4.3-11.0 10^3/uL Red Blood Count 3.90 L 4.35-5.85 10^6/uL Hemoglobin 12.5 11.5-16.0 G/DL Hematocrit 40 35-52 % Mean Corpuscular Volume 101 H 80-99 FL Mean Corpuscular Hemoglobin 32 25-34 PG Mean Corpuscular Hemoglobin Concent 32 32-36 G/DL Red Cell Distribution Width 11.7 10.0-14.5 % Platelet Count 171 130-400 10^3/uL Mean Platelet Volume 9.4 7.4-10.4 FL Neutrophils (%) (Auto) 67 42-75 % Lymphocytes (%) (Auto) 16 12-44 % Monocytes (%) (Auto) 16 H 0-12 % Eosinophils (%) (Auto) 1 0-10 % Basophils (%) (Auto) 0 0-10 % Neutrophils # (Auto) 3.1 1.8-7.8 X 10^3 Lymphocytes # (Auto) 0.8 L 1.0-4.0 X 10^3 Monocytes # (Auto) 0.7 0.0-1.0 X 10^3 Eosinophils # (Auto) 0.0 0.0-0.3 10^3/uL Basophils # (Auto) 0.0 0.0-0.1 10^3/uL Sodium Level 136 135-145 MMOL/L Potassium Level 4.1 3.6-5.0 MMOL/L Chloride Level 102 98-107 MMOL/L Carbon Dioxide Level 25 21-32 MMOL/L Anion Gap 9 5-14 MMOL/L Blood Urea Nitrogen 14 7-18 MG/DL Creatinine 0.83 0.60-1.30 MG/DL Estimat Glomerular Filtration Rate > 60 BUN/Creatinine Ratio 17 Glucose Level 144 H 70-105 MG/DL Calcium Level 9.2 8.5-10.1 MG/DL Corrected Calcium 9.6 8.5-10.1 MG/DL Total Bilirubin 0.2 0.1-1.0 MG/DL Aspartate Amino Transf (AST/SGOT) 16 5-34 U/L Alanine Aminotransferase (ALT/SGPT) 9 0-55 U/L Alkaline Phosphatase 88 40-136 U/L Total Protein 7.2 6.4-8.2 GM/DL Albumin 3.5 3.2-4.5 GM/DL My Orders Orders - NIKKY SEPULVEDA Ct Head/Cervical Spine Wo (11/29/18 13:44) Ua Culture If Indicated (11/29/18 13:44) Cbc With Automated Diff (11/29/18 13:44) Comprehensive Metabolic Panel (11/29/18 13:44) Vital Signs/I&O 11/29/18 13:34 Temp 97.6 Pulse 68 Resp 16 B/P (MAP) 142/78 (99) Progress Progress Note : Time: 13:48 Progress Note Based on the patient's diagnoses I suspect that her orientation is at baseline. Plan to do a CT of the head and neck and a blood draw. If she can produce a urinalysis here would be happy to check it however the patient's review of ruben hayes are serra negative. She does not want anything for her pain. She is very cold and does not want an ice pack this time. Diagnostic Imaging Diagonstic Imaging: CT (noncontrast) Plain Films/CT/US/NM/MRI: c-spine, head Comments No acute fracture of the C-spine or calvarium. No intercranial hemorrhage, mass effect midline shift or tumor. Reviewed: Reviewed by Me Departure Impression Primary Impression: Fall Qualified Codes: W19.XXXA - Unspecified fall, initial encounter Additional Impression: Hematoma Disposition: 01 HOME, SELF-CARE Condition: Stable Departure-Patient Inst. Decision time for Depature: 14:22 Referrals: CAT RAYMUNDO MD (PCP/Family) Primary Care Physician Patient Instructions: Minor Head Injury (DC) Add. Discharge Instructions: Ice pack to the back of the head as needed for pain. Tylenol and ibuprofen as necessary. NIKKY SEPULVEDA Nov 29, 2018 13:49
--- NOTE | 2018-11-29 13:51 | NUR ---
labs to lab by me
--- NOTE | 2018-11-29 13:56 | NUR ---
says no need to cath ua pt.
[2018-11-29 13:57] LABS: BASOPHILS % (AUTO) 0 % (0-10); EOSINOPHILS % (AUTO) 1 % (0-10); HEMATOCRIT 40 % (35-52); HEMOGLOBIN 12.5 G/DL (11.5-16.0); LYMPHOCYTES # (AUTO) 0.8 X 10^3 (1.0-4.0); LYMPHOCYTES % (AUTO) 16 % (12-44); MEAN CORPUSCULAR HEMOGLOBIN 32 PG (25-34); MEAN CORPUSCULAR HGB CONC 32 G/DL (32-36); MEAN CORPUSCULAR VOLUME 101 FL (80-99); MEAN PLATELET VOLUME 9.4 FL (7.4-10.4); MONOCYTES # (AUTO) 0.7 X 10^3 (0.0-1.0); MONOCYTES % (AUTO) 16 % (0-12); NEUTROPHILS # (AUTO) 3.1 X 10^3 (1.8-7.8); NEUTROPHILS % (AUTO) 67 % (42-75); PLATELET COUNT 171 10^3/uL (130-400); RED CELL DISTRIBUTION WIDTH 11.7 % (10.0-14.5); WHITE BLOOD COUNT 4.6 10^3/uL (4.3-11.0)
[2018-11-29 14:15] LABS: ALANINE AMINOTRANSFERASE 9 U/L (0-55); ALBUMIN 3.5 GM/DL (3.2-4.5); ALKALINE PHOSPHATASE 88 U/L (40-136); BILIRUBIN,TOTAL 0.2 MG/DL (0.1-1.0); BUN/CREATININE RATIO 17; CALCIUM 9.2 MG/DL (8.5-10.1); CARBON DIOXIDE 25 MMOL/L (21-32); CHLORIDE 102 MMOL/L (98-107); CREATININE SERUM 0.83 MG/DL (0.60-1.30); GFR ESTIMATED > 60; GLUCOSE 144 MG/DL (70-105); POTASSIUM 4.1 MMOL/L (3.6-5.0); SODIUM 136 MMOL/L (135-145); TOTAL PROTEIN 7.2 GM/DL (6.4-8.2)
--- NOTE | 2018-11-29 14:28 | Diagnostic Imaging Report ---
PROCEDURE: CT head and CT cervical spine without contrast. TECHNIQUE: Multiple contiguous axial images were obtained through the brain and cervical spine without the use of intravenous contrast. Sagittal and coronal reformations through the cervical spine were then performed. Auto Exposure Controls were utilized during the CT exam to meet ALARA standards for radiation dose reduction. INDICATION: Fall. Head injury. COMPARISON: CT head and cervical spine without contrast from 11/17/2018. FINDINGS: CT head: Advanced generalized cerebral and cerebellar parenchymal volume loss. Advanced leukoaraiosis. No intracranial hemorrhage, mass effect, hydrocephalus, or extra-axial fluid collections. No CT evidence for territorial infarction. The visualized paranasal sinuses and mastoids are clear. No fractures. CT cervical spine: Normal alignment. Vertebral body heights are preserved. No fractures. Advanced spondylotic changes are greatest at C5-C7. These likely result in sngawwef-sf-sefzozoz spinal canal narrowing at these levels. Advanced atherosclerotic calcifications including the carotid bifurcations. Lung apices are clear. IMPRESSION: No acute intracranial or cervical spine CT findings. Stable chronic findings, as above. Dictated by: Dictated on workstation # [id number]
--- NOTE | 2018-11-29 14:30 | NUR ---
pt alert gcs 14 neg 1 for confusion. no family been here. no acute sighns of dyspnea noted. bp machine is 131/70 ausc hr 80 reg ausc resp 20 normal recheck temp 97.4 p ox r/a is 98.iv d/cd by me.
--- NOTE | 2018-11-29 14:38 | NUR ---
i called care center. they will work on pile driver operator helper to come pick pt up.
--- NOTE | 2018-11-29 14:50 | NUR ---
i gave nurse report back to care center. spoke with ulises.
[2018-11-29 15:03] VITALS: BP 131/70
--- NOTE | 2018-11-29 15:03 | NUR ---
dr novak for [facility] here to take pt back to [facility]. i gave the national flatbed truck driver the d/c instructions and paper filled out by the for the [facility]. pt relates earlier she was " roller skaiting" when she fell. [facility] nurse said she doubted that. im assuming is coming from pt confusion.
== END 2018-11-29 15:03 | disposition home or self-care (01) ==
LOC: EDUNIT# 13:32 → ER 13:33
DX: S00.03XA Contusion of scalp, initial encounter (principal); I10 Essential (primary) hypertension; E78.00 Pure hypercholesterolemia, unspecified; R40.2142 Coma scale, eyes open, spontaneous, at arrival to emergency department; R40.2252 Coma scale, best verbal response, oriented, at arrival to emergency department; R40.2362 Coma scale, best motor response, obeys commands, at arrival to emergency department; Z87.891 Personal history of nicotine dependence; Z90.89 Acquired absence of other organs; W01.198A Fall on same level from slipping, tripping and stumbling with subsequent striking against other object, initial encounter
CPT/HCPCS: 36415; 70450; 72125; 80053; 85025

== ENCOUNTER 2018-12-31 07:41 | Emergency (ER) | payer MEDICARE ==
[~2018-12-31] VITALS: Ht 64 cm; Wt 52.0 kg
--- NOTE | 2018-12-31 07:59 | ED Fall/Injury ---
General Chief Complaint: Trauma-Non Activation Stated Complaint: FALL Nursing Triage Note: ARRIVED VIA EMS FROM [facility] AFTER TRIPPING OVER SOMETHING WALKING OUT OF THE BATHROOM. STATES SHE HIT THE RIGHT SIDE OF HER HEAD. NO LOC. DENIES NECK PAIN. PT IS NOT ON BLOOD THINNERS. Source: patient, EMS, [facility] records History of Present Illness Date Seen by Provider: Dec 31, 2018 Time Seen by Provider: 07:44 Initial Comments PT ARRIVES VIA EMS FROM [facility]--NO IMMOBILIZATION PT WAS WALKING FROM BATHROOM AND FELL, HITTING HER HEAD ON THE FLOOR. WAS WITNESSED FALL. NO LOSS OF CONSCIOUSNESS C/O PAIN TO RIGHT SIDE OF HEAD--HAS LARGE HEMATOMA TO RIGHT POSTERIOR PARIETAL/OCCIPITAL AREA. PT IS NOT ON BLOOD THINNERS DENIES NECK OR BACK PAIN DENIES NAUSEA/VOMITING STATES SHE DOES FEEL A LITTLE DIZZY DENIES ANY VISION PROBLEMS DENIES NUMBNESS/TINGLING ANYWHERE DENIES HIP OR LEG PAIN DENIES ARM PAIN PCP: DR. RAYMUNDO Allergies and Home Medications Allergies Coded Allergies: No Known Drug Allergies (Verified , 07/18/08) Home Medications Amlodipine Besylate 5 Mg Tablet, 5 MG PO DAILY, (Reported) LAST FILLED #30 05-19-18 Atenolol 50 Mg Tablet, 50 MG PO BID, (Reported) LAST FILLED #90 05-08-18 Carbamazepine 200 Mg Tablet, 200 MG PO BID, (Reported) LAST FILLED #60 06-12-18 Loperamide HCl 2 Mg Capsule, 2 MG PO UD PRN for DIARRHEA, (Reported) Patient Home Medication List Home Medication List Reviewed: Yes Review of Systems Review of Systems Constitutional: dizziness Eyes: No Symptoms Reported; Denies Blurred Vision Ears, Nose, Mouth, Throat: no symptoms reported Respiratory: no symptoms reported, dyspnea on exertion; No short of breath Cardiovascular: no symptoms reported; No chest pain Gastrointestinal: no symptoms reported; No nausea, No vomiting Genitourinary: no symptoms reported Musculoskeletal: no symptoms reported; No back pain, No joint pain, No neck pain Skin: no symptoms reported Psychiatric/Neurological: See HPI, Headache; Denies Numbness, Denies Paresthesia, Denies Seizure, Denies Tingling, Denies Weakness Past Tsyoekh-Aexhrw-Ocixko Hx Patient Social History Alcohol Use: Denies Use Recreational Drug Use: No Smoking Status: Former Smoker (1 PPD, QUIT MANY YEARS AGO) Type Used: Cigarettes 2nd Hand Smoke Exposure: No Recent Foreign Travel: No Contact w/Someone Who Travel: No Recent Infectious Disease Expo: No Recent Hopitalizations: No Immunizations Up To Date Tetanus Booster (TDap): Unknown Seasonal Allergies Seasonal Allergies: No Past Medical History Surgeries: Yes (SURGERY FOR TRIGEMINAL NEURALGIA) Tonsillectomy Respiratory: No (FORMER SMOKER) Cardiac: Yes High Cholesterol, Hypertension Neurological: Yes (RIGHT TRIGMENINAL NEURALGIA) Dementia Reproductive Disorders: No Sexually Transmitted Disease: No Genitourinary: No Gastrointestinal: No Musculoskeletal: Yes (POOR BALANCE, FALLS, GENERALIZED WEAKNESS) Endocrine: No HEENT: Yes (RIGHT TRIGEMINAL NEURALGIA) Cancer: No Psychosocial: No Integumentary: No Blood Disorders: No Physical Exam Vital Signs Vital Signs - First Documented 12/31/18 07:41 Temp 36.1 Pulse 62 Resp 16 B/P (MAP) 127/71 (89) Pulse Ox 99 O2 Delivery Room Air Capillary Refill : Less Than 3 Seconds Height, Weight, BMI Height: 5'4.00" Weight: 150lbs. 5.0oz. 68.237168zb; 126.00 BMI Method:Stated General Appearance: no apparent distress, thin HEENT: PERRL/EOMI, TMs normal, pharynx normal, other (LARGE HEMATOMA TO RIGHT POSTERIOR PARIETAL/OCCIPITAL AREA. NO LACERATION OR BLEEDING) Neck: non-tender, full range of motion, supple, normal inspection Cardiovascular: normal peripheral pulses, regular rate, rhythm, no JVD, no murmur Respiratory: chest non-tender, normal breath sounds, no respiratory distress, no accessory muscle use Peripheral Pulses: 1+ Dorsalis Pedis (R), 1+ Left Dors-Pedis (L), 1+ Radial Pulses (R), 1+ Radial Pulses (L) Gastrointestinal: normal bowel sounds, non tender, soft, no organomegaly Back: normal inspection, no CVA tenderness, no vertebral tenderness Extremities: normal capillary refill, pelvis stable, pedal edema (TRACE BILATERALLY), other (MILD TENDERNESS TO RIGHT HIP AND KNEE. MOTOR/SENSORY/VASCULAR INTACT. FULL ROM. ) Neurologic/Psychiatric: rivet spinner II-XII nml as tested, no motor/sensory deficits, alert, normal mood/affect, other (SLIGHT DISORIENTED TO TIME, BUT ORIENTED TO PERSON, PLACE, SITUATION. ) Skin: normal color, warm/dry, ecchymosis Progress/Results/Core Measures Results/Orders My Orders Orders - SUE BRITO DO Ct Head/Cervical Spine Wo (12/31/18 07:52) Chest 1 View, Ap/Pa Only (12/31/18 07:52) Femur, Right, 2 Views (12/31/18 07:52) Knee, Right, 3 Views (12/31/18 07:52) Pelvis With Right Hip 2-3views (12/31/18 07:52) Vital Signs/I&O 12/31/18 07:41 Temp 36.1 Pulse 62 Resp 16 B/P (MAP) 127/71 (89) Pulse Ox 99 O2 Delivery Room Air Blood Pressure Mean: [address] HEAD/CERVICAL SPINE--RIGHT SCALP HEMATOMA, NO ACUTE INTRACRANIAL PROCESS. CHRONIC DEGENERATIVE CHANGES OF BRAIN AND CERVICAL SPINE. NO ACUTE CERVICAL SPINE PROCESS--PER RADIOLOGIST REPORT AT 0834 XRAYS: ALL PER RADIOLOGIST REPORTS AT 0837 CXR--NO ACUTE PROCESS RIGHT HIP AND PELVIS--NO ACUTE PROCESS RIGHT FEMUR--NO ACUTE PROCESS RIGHT KNEE--NO ACUTE PROCESS Reviewed: Reviewed by Me Departure Impression Primary Impression: Fall from standing Additional Impressions: Acute head injury without loss of consciousness Hematoma of right parietal scalp RIGHT HIP AND KNEE CONTUSION CERVICAL SPINE STRAIN Disposition: 03 XFER SNF Condition: Stable Departure-Patient Inst. Referrals: CAT RAYMUNDO MD (PCP/Family) Primary Care Physician Patient Instructions: Preventing Falls in the Older Adult, Minor Head Injury (DC), Contusion (DC) Add. Discharge Instructions: TYLENOL NEEDED FOR PAIN ICE TO AREA AT 20 MINUTE INTERVALS CONTINUE YOUR REGULAR MEDICATIONS PRESCRIBED FOLLOW UP WITH YOUR DR NEEDED All discharge instructions reviewed with patient and/or family. Voiced understanding. SUE BRITO DO Dec 31, 2018 07:59
--- NOTE | 2018-12-31 08:20 | Diagnostic Imaging Report ---
PROCEDURE: CT head and CT cervical spine without contrast. TECHNIQUE: Multiple contiguous axial images were obtained through the brain and cervical spine without the use of intravenous contrast. Sagittal and coronal reformations through the cervical spine were then performed. Auto Exposure Controls were utilized during the CT exam to meet ALARA standards for radiation dose reduction. INDICATION: Fall. COMPARISON: 11/29/2018. FINDINGS: CT HEAD: Advanced generalized cerebral and cerebellar parenchymal volume loss. Advanced leukoaraiosis. No intracranial hemorrhage, mass effect, hydrocephalus or extra-axial fluid collections. Scalp contusion overlying the right parietal convexity. Osseous structures are intact. The visualized paranasal sinuses and mastoids are clear. CT CERVICAL SPINE: Minimal anterolisthesis of C3 on C4. Alignment is otherwise unremarkable. Vertebral body heights are preserved. No fractures. Advanced spondylotic changes are greatest at C5-C7 where they likely result in moderate to advanced spinal canal narrowing on soft tissue windows. Advanced atherosclerotic calcifications in the carotid bifurcations. IMPRESSION: 1. Scalp contusion overlying the right parietal convexity. No fractures. 2. No acute intracranial CT findings. Advanced parenchymal volume loss and chronic small vessel ischemic change. 3. No acute CT findings in the cervical spine. Spondylotic changes likely result in moderate to advanced spinal canal narrowing at C5-C6 and C6-C7. This could be better evaluated with MRI or a CT myelogram, if clinically warranted. Dictated by: Dictated on workstation # [id number]
--- NOTE | 2018-12-31 08:32 | Diagnostic Imaging Report ---
PATIENT HISTORY: Fall. TECHNIQUE: Single frontal view of the chest COMPARISON: 07/16/2018 FINDINGS: Lung volumes are mildly large. There are calcified granulomas in the left lung base. No pleural effusion or pneumothorax is seen. There is mild cardiomegaly. There is a chronic right rotator cuff injury. There is aortic atherosclerosis. IMPRESSION: 1. Mild cardiomegaly with no acute pulmonary abnormality seen. Dictated by: Dictated on workstation # [id number]
--- NOTE | 2018-12-31 08:33 | Diagnostic Imaging Report ---
PATIENT HISTORY: Fall, right hip injury. TECHNIQUE: Frontal view of the pelvis. Frontal and lateral views of the right hip COMPARISON: 11/12/2018 FINDINGS: No acute fracture or dislocation is seen in the right hip. Alignment appears normal. There are mild degenerative changes in the bilateral hip joints and in the lower lumbar spine. There is diffuse osteopenia. There is calcific atherosclerosis. IMPRESSION: Degenerative changes in the pelvis and right hip with no acute osseous abnormality seen. Dictated by: Dictated on workstation # [id number]
--- NOTE | 2018-12-31 08:34 | Diagnostic Imaging Report ---
EXAM: KNEE, RIGHT, 3 VIEWS INDICATION: Fall. Right knee pain. COMPARISON: Right femur radiographs also performed today. FINDINGS: Mild tricompartmental degenerative changes in the right knee. No fracture or malalignment. No suspicious osteoblastic or lytic lesions. Advanced atherosclerotic calcifications. IMPRESSION: No acute radiographic findings in the right knee. Dictated by: Dictated on workstation # [id number]
--- NOTE | 2018-12-31 08:35 | Diagnostic Imaging Report ---
PATIENT HISTORY: Fall, right hip pain. TECHNIQUE: 2 views of the right femur COMPARISON: None FINDINGS: There are mild degenerative changes in the right hip joint. No acute fracture or dislocation is seen in the right femur. Alignment appears normal. There is extensive calcific atherosclerosis. IMPRESSION: No acute osseous abnormalities seen in the right femur. Dictated by: Dictated on workstation # [id number]
--- NOTE | 2018-12-31 08:35 | NUR ---
WARM BLANKET GIVEN.
--- NOTE | 2018-12-31 08:42 | NUR ---
IN TALKING TO PT AT THIS TIME.
--- NOTE | 2018-12-31 08:43 | NUR ---
[facility] NOTIFIED PT WAS READY TO GO BACK.
[2018-12-31 09:43] VITALS: BP 127/70
== END 2018-12-31 09:43 ==
LOC: EDUNIT# 07:41 → ER 07:42
DX: S09.90XA Unspecified injury of head, initial encounter (principal); S00.03XA Contusion of scalp, initial encounter; S70.01XA Contusion of right hip, initial encounter; S80.01XA Contusion of right knee, initial encounter; S16.1XXA Strain of muscle, fascia and tendon at neck level, initial encounter; I10 Essential (primary) hypertension; E78.00 Pure hypercholesterolemia, unspecified; F03.90 Unspecified dementia, unspecified severity, without behavioral disturbance, psychotic disturbance, mood disturbance, and anxiety; Z87.891 Personal history of nicotine dependence; Z90.89 Acquired absence of other organs; W01.10XA Fall on same level from slipping, tripping and stumbling with subsequent striking against unspecified object, initial encounter; Y92.002 Bathroom of unspecified non-institutional (private) residence as the place of occurrence of the external cause
CPT/HCPCS: 70450; 71045; 72125; 73552; 73562

== ENCOUNTER → 2019-01-16 | Outpatient (CLI) | payer MEDICARE, MEDICAID ==
--- NOTE | 2019-01-16 16:15 | Diagnostic Imaging Report ---
EXAMINATION: Left shoulder at 0236 hours. INDICATION: Shoulder pain. Three views were obtained. COMPARISON: There are no prior studies available for comparison. FINDINGS: There is no fracture, dislocation or acute bony abnormality evident. The humeral head is more superiorly positioned with respect to the glenoid than usually seen and the space between the acromion and the humeral head is noted. Most likely the rotator cuff has been at least partially torn. There is moderate degenerative disease involving the glenohumeral joint and the acromioclavicular joint. The soft tissues are unremarkable. IMPRESSION: 1. There is no evidence for an acute bony abnormality. 2. The position of the humeral head with respect to the glenoid does suggest that the rotator cuff has been torn. If further imaging is desired, then MRI would be recommended. Dictated by: Dictated on workstation # [id number]
--- NOTE | 2019-01-16 17:32 | Diagnostic Imaging Report ---
EXAMINATION: Left knee at 2:38 p.m. INDICATION: Fell, knee pain. Three views were obtained. There are no prior studies available for comparison. FINDINGS: There is no fracture, dislocation, or acute bony abnormality evident. The medial and lateral compartments of the knee joint are fairly well maintained. There is fairly severe narrowing of the patellofemoral space. The soft tissues are unremarkable for an acute abnormality. Vascular calcifications are seen posterior to the distal femur, the knee joint, and the tibia and fibula. IMPRESSION: There is no evidence for an acute bony abnormality. Dictated by: Dictated on workstation # [id number]
== END ==
LOC: RAD 15:14
PROVIDERS: ATTEND Internal Medicine
DX: M25.562 Pain in left knee (principal); M25.512 Pain in left shoulder; W19.XXXA Unspecified fall, initial encounter
CPT/HCPCS: 73030; 73562

== ENCOUNTER → 2019-06-28 | Outpatient (CLI) | payer MEDICARE, MEDICAID ==
[~2019-06-28] MED LIST changes: -LOPE-145 PO; +LOPE-175 PO; +SIMV40TA25 PO; -SIMV40TA4 PO
== END ==
LOC: CVS 19:38
PROVIDERS: ATTEND Internal Medicine
DX: I10 Essential (primary) hypertension (principal); M62.81 Muscle weakness (generalized); G50.0 Trigeminal neuralgia; E78.5 Hyperlipidemia, unspecified; F03.90 Unspecified dementia, unspecified severity, without behavioral disturbance, psychotic disturbance, mood disturbance, and anxiety; F41.8 Other specified anxiety disorders; K21.9 Gastro-esophageal reflux disease without esophagitis; F03.91 Unspecified dementia, unspecified severity, with behavioral disturbance; R13.11 Dysphagia, oral phase; R53.1 Weakness; R26.89 Other abnormalities of gait and mobility; R13.12 Dysphagia, oropharyngeal phase; R41.841 Cognitive communication deficit; Z87.440 Personal history of urinary (tract) infections; Z87.891 Personal history of nicotine dependence
CPT/HCPCS: 87088

== ENCOUNTER → 2019-06-29 | Outpatient (CLI) | payer MEDICARE, MEDICAID ==
[2019-06-29 21:10] LABS: BILIRUBIN,URINE NEGATIVE (NEGATIVE); CLARITY,URINE CLEAR; COLOR,URINE YELLOW; GLUCOSE, URINE (UA) 2+ (NEGATIVE); KETONES,URINE NEGATIVE (NEGATIVE); LEUKOCYTE ESTERASE ,URINE NEGATIVE (NEGATIVE); NITRITE,URINE NEGATIVE (NEGATIVE); PROTEIN,URINE NEGATIVE (NEGATIVE)
[2019-06-29 21:41] LABS: BACTERIA,URINE TRACE /HPF
== END ==
LOC: LABNPT 20:59
PROVIDERS: ATTEND Internal Medicine
DX: J02.9 Acute pharyngitis, unspecified (principal); R50.9 Fever, unspecified
CPT/HCPCS: 81000

== ENCOUNTER 2019-08-13 14:06 | Emergency (ER) | payer MEDICARE, MEDICAID ==
[~2019-08-13] VITALS: Ht 162.5 cm; Wt 52.0 kg
--- NOTE | 2019-08-13 14:24 | ED Fall/Injury ---
General Chief Complaint: Trauma-Non Activation Stated Complaint: FALL,HEAD INJ Nursing Triage Note: pt brought in by [facility] from [facility] with complaint of fall. pt had unwittnessed fall where she hit her head. pt is complaining of neck tenderness. was given tylenol at 1318. Source: patient (LIMITED HISTORIAN--HAs HISTORY OF DEMENTIA), EMS, old records History of Present Illness Date Seen by Provider: Aug 13, 2019 Time Seen by Provider: 14:07 Initial Comments PT ARRIVES VIA EMS FROM [facility]--NO IMMOBILIZATION PT HAD AN UNWITNESSED FALL AT SENIOR CARE PT DOES NOT KNOW WHY SHE FELL, AND CANNOT GIVE ANY DETAILS OF THE EVENT SENIOR CARE STAFF HAVE NO IDEA HOW LONG PT HAD BEEN LAYING ON FLOOR PT C/O PAIN TO HEAD--HAS LARGE HEMATOMA TO LEFT FOREHEAD/FRONTAL SCALP AREA PT ALSO C/O NECK PAIN --CERVICAL COLLAR IMMEDIATELY PLACED ON ARRIVAL NO BACK PAIN NO PAIN TO ARMS OR LEGS NO NUMBNESS/TINGLING ANYWHERE NO VISION CHANGES DENIES DIZZINESS NO NAUSEA/VOMITING HAS SKIN TEAR TO DORSUM OF LEFT HAND WITH STERI STRIPS IN PLACE PT WAS GIVEN TYLENOL BY SENIOR CARE STAFF PRIOR TO ARRIVAL LAST TETANUS VACCINATION IS UNKNOWN PT IS NOT ON ANY BLOOD THINNERS PT WITH LONG HISTORY OF POOR BALANCE/GENERALIZED WEAKNESS AND MULTIPLE FALLS PT IS DNR PCP: DR. RAYMUNDO Allergies and Home Medications Allergies Coded Allergies: No Known Drug Allergies (Verified , 07/18/08) Home Medications Amlodipine Besylate 5 Mg Tablet, 5 MG PO DAILY, (Reported) LAST FILLED #30 05-19-18 Atenolol 50 Mg Tablet, 50 MG PO BID, (Reported) LAST FILLED #90 05-08-18 Carbamazepine 200 Mg Tablet, 200 MG PO BID, (Reported) LAST FILLED #60 06-12-18 Loperamide HCl 2 Mg Capsule, 2 MG PO UD PRN for DIARRHEA, (Reported) Patient Home Medication List Home Medication List Reviewed: Yes Review of Systems Review of Systems Constitutional: no symptoms reported Eyes: No Symptoms Reported Ears, Nose, Mouth, Throat: no symptoms reported Respiratory: no symptoms reported Cardiovascular: no symptoms reported Gastrointestinal: no symptoms reported Musculoskeletal: no symptoms reported Skin: see HPI Psychiatric/Neurological: See HPI Past Lyeqsoy-Tjifuj-Qwuctr Hx Past Med/Social Hx: Reviewed and Corrections made Patient Social History Alcohol Use: Denies Use Recreational Drug Use: No Smoking Status: Former Smoker (1 PPD, QUIT MANY YEARS AGO) Type Used: Cigarettes 2nd Hand Smoke Exposure: No Recent Foreign Travel: No Contact w/Someone Who Travel: No Recent Infectious Disease Expo: No Recent Hopitalizations: No Immunizations Up To Date Tetanus Booster (TDap): Unknown Seasonal Allergies Seasonal Allergies: No Past Medical History Surgeries: Yes (SURGERY FOR TRIGEMINAL NEURALGIA) Tonsillectomy Respiratory: No (FORMER SMOKER) Cardiac: Yes High Cholesterol, Hypertension Neurological: Yes (RIGHT TRIGMENINAL NEURALGIA) Dementia Reproductive Disorders: No Sexually Transmitted Disease: No Genitourinary: No Gastrointestinal: No Musculoskeletal: Yes (POOR BALANCE, FALLS, GENERALIZED WEAKNESS) Endocrine: No HEENT: Yes (RIGHT TRIGEMINAL NEURALGIA) Cancer: No Psychosocial: No Integumentary: No Blood Disorders: No Physical Exam Vital Signs Vital Signs - First Documented 08/13/19 14:08 Temp 36.8 Pulse 67 Resp 20 B/P (MAP) 136/83 (100) Pulse Ox 96 O2 Delivery Room Air Capillary Refill : Less Than 3 Seconds Height, Weight, BMI Height: 5'4.00" Weight: 150lbs. 5.0oz. 68.341973ie; 19.00 BMI Method:Stated General Appearance: WD/WN, no apparent distress, thin, other (PT'S BRIEF AND PANTS ARE SATURATED WITH URINE. ) HEENT: PERRL/EOMI, normal ENT inspection, other (HAS LARGE HEMATOMA TO LEFT FOREHEAD/FRONTAL SCALP AREA) Neck: tender midline (IMMEDIATELY PLACED IN CERVICAL COLLAR) Cardiovascular: regular rate, rhythm, no edema, no JVD, no murmur Respiratory: chest non-tender, normal breath sounds, no accessory muscle use Peripheral Pulses: 1+ Dorsalis Pedis (R), 1+ Left Dors-Pedis (L), 1+ Radial Pulses (R), 1+ Radial Pulses (L) Gastrointestinal: non tender, soft Extremities: other (POSSIBLE HIP TENDERNESS--STATES "I JUST DOESN'T FEEL RIGHT" ) Neurologic/Psychiatric: no motor/sensory deficits, alert, normal mood/affect, other (PORR MEMORY; ORIENTED TO PERSON, KNOWS IS IN HOSPITAL AND KNOWS SHE FELL) Skin: normal color, warm/dry, ecchymosis, other (SKIN TEAR TO DORSUM OF LEFT HAND AND BASE OF LEFT THUMB, WITH STERI STRIPS IN PLACE, NO BLEEDING AT THIS TIME) Progress/Results/Core Measures Results/Orders Lab Results Laboratory Tests Test 08/13/19 14:21 Range/Units Urine Color YELLOW Urine Clarity CLEAR Urine pH 6.0 5-9 Urine Specific [place] 1.025 H 1.016-1.022 Urine Protein NEGATIVE NEGATIVE Urine Glucose (UA) NEGATIVE NEGATIVE Urine Ketones NEGATIVE NEGATIVE Urine Nitrite NEGATIVE NEGATIVE Urine Bilirubin NEGATIVE NEGATIVE Urine Urobilinogen 0.2 < = 1.0 MG/DL Urine Leukocyte Esterase NEGATIVE NEGATIVE Urine RBC (Auto) NEGATIVE NEGATIVE Urine RBC NONE /HPF Urine WBC NONE /HPF Urine Squamous Epithelial Cells 0-2 /HPF Urine Crystals NONE /LPF Urine Bacteria NEGATIVE /HPF Urine Casts NONE /LPF Urine Mucus SMALL H /LPF Urine Culture Indicated NO My Orders Orders - SUE BRITO DO Ed Iv/Invasive Line Start (08/13/19 14:15) Monitor-Rhythm Ecg Trace Only (08/13/19 14:15) Ct Head/Face/Cervical Wo (08/13/19 14:15) Ct Thoracic/Lumbar Spine Wo (08/13/19 14:15) Chest 1 View, Ap/Pa Only (08/13/19 14:15) Pelvis/Erik Hips 5> Views (08/13/19 14:15) Cervical Collar (08/13/19 14:23) Hand, Left, 3 Views (08/13/19 14:29) Ua Culture If Indicated (08/13/19 14:33) Vital Signs/I&O 08/13/19 08/13/19 14:08 16:12 Temp 36.8 36.8 Pulse 67 65 Resp 20 15 B/P (MAP) 136/83 (100) 125/79 (100) Pulse Ox 96 97 O2 Delivery Room Air Blood Pressure Mean: 100 Diagnostic Imaging Comments XRAYS: PER RADIOLOGIST REPORTS AT 1521: CXR--CHRONIC CHANGES, NO ACUTE PROCESS PELVIS/BILATERAL HIPS--CHRONIC CHANGES, NO ACUTE PROCESS LEFT HAND--QUESTIONABLE FX DISTAL 4TH PHALANX, OTHERWISE NO ACUTE PROCESS ( OF NOTE, PT IS NOT TENDER IN THIS AREA AND HAS NO EVIDENCE OF TRAUMA TO THIS AREA ) CT HEAD/MAXILLOFACIALS/CERVICAL SPINE--PER RADIOLOGIST REPORT AT 1537 IMPRESSION: 1. CT brain shows atrophic changes with mild chronic changes in deep white matter. There is no acute intracranial hemorrhage or acute intracranial finding. A small left frontal scalp hematoma is noted. 2. CT cervical spine shows degenerative findings as described above with no acute fracture or subluxation. 3. CT maxillofacial demonstrates no evidence of facial fracture or intraorbital hematoma. CT THORACIC/LUMBAR SPINE--PER RADIOLOGIST REPORT AT 1537 FINDINGS: There is normal thoracic kyphotic curvature and lumbar lordotic curvature. There is mild anterolisthesis of L3 on L4. Vertebral body heights are maintained. No acute compression fracture is seen. There is diffuse thoracic and lumbar spondylosis with variable disc space narrowing and marginal spurring. Multilevel facet arthropathy is noted. There is vacuum disc at multiple levels. Paraspinous tissues are unremarkable. No paraspinous hematoma is identified. Aorta is heavily calcified but nonaneurysmal. IMPRESSION: Thoracolumbar spondylosis. No acute fracture is detected. Reviewed: Reviewed by Me Departure Impression Primary Impression: Unwitnessed fall Additional Impressions: MINOR HEAD INJURY WITH UNKNOWN LOSS OF CONSCIOUSNESS Traumatic hematoma of forehead CERVICAL SPINE STRAIN SKIN TEAR LEFT HAND Disposition: 03 XFER SNF Condition: Stable Departure-Patient Inst. Referrals: CAT RAYMUNDO MD (PCP/Family) Primary Care Physician Patient Instructions: Cervical Muscle Strain (DC), Contusion (DC), Minor Head Injury (DC), Preventing Falls in the Older Adult, Skin Abrasions (DC) Add. Discharge Instructions: ICE TO SORE AREAS AT 20 MINUTE INTERVALS TYLENOL NEEDED FOR PAIN FOLLOW UP WITH YOUR DR NEEDED All discharge instructions reviewed with patient and/or family. Voiced und erstanding. USE BRITO DO Aug 13, 2019 14:24
--- OUTSIDE RECORDS SUMMARY | 2019-08-13 14:28 | XMS REPORT | Continuity of Care Document ---
Author Organization Unknown Address Unknown Phone Unavailable Allergies Active Description Code Type Severity Reaction Onset Reported/Identified Relationship to Patient Clinical Status Yes No Known Drug Allergies [id number] Drug Allergy Unknown N/A 07/18/2008 Medications There is no data. Problems Date Dx Coded Attending Type Code Diagnosis Diagnosed By 11/17/2009 Ot 792.1 09/06/2014 CAT RAYMUNDO MD Ot V76.1 2 04/15/2015 Ot V76.12 04/15/2015 Ot V76.12 04/15/2015 Ot V76.12 04/15/2015 LARRY MCPHERSON APRN Ot V76.12 04/15/2015 CAT RAYMUNDO MD Ot V76.1 2 05/09/2015 LARRY MCPHERSON CONSTRUCTION SAFETY CONSULTANT Ot M16.11 05/09/2015 LARRY MCPHERSON CONSTRUCTION SAFETY CONSULTANT Ot M47.892 05/09/2015 LARRY MCPHERSON CONSTRUCTION SAFETY CONSULTANT Ot M85.89 05/09/2015 LARRY MCPHERSON CONSTRUCTION SAFETY CONSULTANT Ot S00.03XA 05/15/2015 LARRY MCPHERSON CONSTRUCTION SAFETY CONSULTANT Ot M16.11 05/15/2015 LARRY MCPHERSON CONSTRUCTION SAFETY CONSULTANT Ot M47.892 05/15/2015 LARRY MCPHERSON CONSTRUCTION SAFETY CONSULTANT Ot M85.89 05/15/2015 LARRY MCPHERSON CONSTRUCTION SAFETY CONSULTANT Ot S00.03XA 07/15/2015 LARRY MCPHERSON CONSTRUCTION SAFETY CONSULTANT Ot Z12.31 07/24/2015 LARRY MCPHERSON CONSTRUCTION SAFETY CONSULTANT Ot R92.8 08/06/2015 LARRY MCPHERSON CONSTRUCTION SAFETY CONSULTANT Ot Z12.31 ENCNTR SCREEN MAMMOGRAM FOR MALIGNANT NE 12/02/2015 CAT RAYMUNDO MD Ot D69.6 THROMBOCYTOPENIA, UNSPECIFIED 12/02/2015 CAT RAYMUNDO MD Ot D72.8 19 DECREASED WHITE BLOOD CELL COUNT, UNSPEC 07/27/2016 Ot V76.12 OTH SCREEN MAMMO- MALIGN NEOPLASM OF [place] 07/27/2016 Ot V76.12 OTH SCREEN MAMMO- MALIGN NEOPLASM OF [place] 07/27/2016 LARRY MCPHERSON CONSTRUCTION SAFETY CONSULTANT Ot V76.12 OTH SCREEN MAMMO-MALIGN NEOPLASM OF [place] 07/27/2016 CAT RAYMUNDO MD Ot V76.1 2 OTH SCREEN MAMMO-MALIGN NEOPLASM OF [place] 07/27/2016 LARRY MCPHERSON CONSTRUCTION SAFETY CONSULTANT Ot M16.11 UNILATERAL PRIMARY OSTEOARTHRITIS, RIGHT 07/27/2016 LARRY MCPHERSON APRN Ot M47.892 OTHER SPONDYLOSIS, CERVICAL REGION 07/27/2016 LARRY MCPHERSON APRN Ot M85.89 OTH DISRD OF BONE DENSITY AND STRUCTURE, 07/27/2016 LARRY MCPHERSON CONSTRUCTION SAFETY CONSULTANT Ot S00.03XA CONTUSION OF SCALP, INITIAL ENCOUNTER 07/27/2016 LARRY MCPHERSON APRN Ot Z12.31 ENCNTR SCREEN MAMMOGRAM FOR MALIGNANT NE 07/27/2016 LARRY MCPHERSON APRN Ot R92.8 OTH ABN AND INCONCLUSIVE FINDINGS ON DX 07/27/2016 CAT RAYMUNDO MD Ot D69.6 THROMBOCYTOPENIA, UNSPECIFIED 07/27/2016 CAT RAYMUNDO MD Ot D72.8 19 DECREASED WHITE BLOOD CELL COUNT, UNSPEC 07/27/2016 CAT RAYMUNDO MD Ot Z12.3 1 ENCNTR SCREEN MAMMOGRAM FOR MALIGNANT NE 07/27/2016 CAT RAYMUNDO MD Ot Z12.3 1 ENCNTR SCREEN MAMMOGRAM FOR MALIGNANT NE 07/27/2016 CAT RAYMUNDO MD Ot Z12.3 1 ENCNTR SCREEN MAMMOGRAM FOR MALIGNANT NE 07/27/2016 CAT RAYMUNDO MD Ot Z12.3 1 ENCNTR SCREEN MAMMOGRAM FOR MALIGNANT NE 07/28/2016 CAT RAYMUNDO MD Ot Z12.3 1 ENCNTR SCREEN MAMMOGRAM FOR MALIGNANT NE 08/06/2016 Ot V76.12 OTH SCREEN MAMMO- MALIGN NEOPLASM OF [place] 08/06/2016 Ot V76.12 OTH SCREEN MAMMO- MALIGN NEOPLASM OF [place] 08/06/2016 ALRRY MCPHERSON APRN Ot V76.12 OTH SCREEN MAMMO-MALIGN NEOPLASM OF [place] 08/06/2016 CAT RAYMUNDO MD Ot V76.1 2 OTH SCREEN MAMMO-MALIGN NEOPLASM OF [place] 08/06/2016 LARRY MCPHERSON CONSTRUCTION SAFETY CONSULTANT Ot M16.11 UNILATERAL PRIMARY OSTEOARTHRITIS, RIGHT 08/06/2016 LARRY MCPHERSON CONSTRUCTION SAFETY CONSULTANT Ot M47.892 OTHER SPONDYLOSIS, CERVICAL REGION 08/06/2016 LARRY MCPHERSON CONSTRUCTION SAFETY CONSULTANT Ot M85.89 OTH DISRD OF BONE DENSITY AND STRUCTURE, 08/06/2016 LARRY MCPHERSON CONSTRUCTION SAFETY CONSULTANT Ot S00.03XA CONTUSION OF SCALP, INITIAL ENCOUNTER 08/06/2016 LARRY MCPHERSON CONSTRUCTION SAFETY CONSULTANT Ot Z12.31 ENCNTR SCREEN MAMMOGRAM FOR MALIGNANT NE 08/06/2016 LARRY MCPHERSON CONSTRUCTION SAFETY CONSULTANT Ot R92.8 OTH ABN AND INCONCLUSIVE FINDINGS ON DX 08/06/2016 CAT RAYMUNDO MD Ot D69.6 THROMBOCYTOPENIA, UNSPECIFIED 08/06/2016 CAT RAYMUNDO MD Ot D72.8 19 DECREASED WHITE BLOOD CELL COUNT, UNSPEC 08/06/2016 CAT RAYMUNDO MD Ot Z12.3 1 ENCNTR SCREEN MAMMOGRAM FOR MALIGNANT NE 08/06/2016 LARRY MCPHERSON CONSTRUCTION SAFETY CONSULTANT Ot R92.2 INCONCLUSIVE MAMMOGRAM 08/06/2016 LARRY MCPHERSON CONSTRUCTION SAFETY CONSULTANT Ot R92.2 INCONCLUSIVE MAMMOGRAM 08/09/2016 Ot V76.12 OTH SCREEN MAMMO- MALIGN NEOPLASM OF [place] 08/09/2016 Ot V76.12 OTH SCREEN MAMMO- MALIGN NEOPLASM OF [place] 08/09/2016 LARRY MCPHERSON CONSTRUCTION SAFETY CONSULTANT Ot V76.12 OTH SCREEN MAMMO-MALIGN NEOPLASM OF [place] 08/09/2016 CAT RAYMUNDO MD Ot V76.1 2 OTH SCREEN MAMMO-MALIGN NEOPLASM OF [place] 08/09/2016 LARRY MCPHERSON CONSTRUCTION SAFETY CONSULTANT Ot M16.11 UNILATERAL PRIMARY OSTEOARTHRITIS, RIGHT 08/09/2016 LARRY MCPHERSON CONSTRUCTION SAFETY CONSULTANT Ot M47.892 OTHER SPONDYLOSIS, CERVICAL REGION 08/09/2016 LARRY MCPHERSON CONSTRUCTION SAFETY CONSULTANT Ot M85.89 OTH DISRD OF BONE DENSITY AND STRUCTURE, 08/09/2016 LARRY MCPHERSON CONSTRUCTION SAFETY CONSULTANT Ot S00.03XA CONTUSION OF SCALP, INITIAL ENCOUNTER 08/09/2016 LARRY MCPHERSON CONSTRUCTION SAFETY CONSULTANT Ot Z12.31 ENCNTR SCREEN MAMMOGRAM FOR MALIGNANT NE 08/09/2016 LARRY MCPHERSON CONSTRUCTION SAFETY CONSULTANT Ot R92.8 OTH ABN AND INCONCLUSIVE FINDINGS ON DX 08/09/2016 CAT RAYMUNDO MD Ot D69.6 THROMBOCYTOPENIA, UNSPECIFIED 08/09/2016 CAT RAYMUNDO MD Ot D72.8 19 DECREASED WHITE BLOOD CELL COUNT, UNSPEC 08/09/2016 CAT RAYMUNDO MD Ot Z12.3 1 ENCNTR SCREEN MAMMOGRAM FOR MALIGNANT NE 08/09/2016 LARRY MCPHERSON APRN Ot R92.2 INCONCLUSIVE MAMMOGRAM 08/09/2016 LARRY MCPHERSON APRN Ot R92.2 INCONCLUSIVE MAMMOGRAM 08/11/2016 LARRY MCPHERSON APRN Ot R92.8 OTH ABN AND INCONCLUSIVE FINDINGS ON DX 08/17/2016 CAT RAYMUNDO MD Ot Z12.3 1 ENCNTR SCREEN MAMMOGRAM FOR MALIGNANT NE 09/03/2016 [...] OF [place] 07/28/2017 CAT RAYMUNDO MD Ot V76.1 2 OTH SCREEN MAMMO-MALIGN NEOPLASM OF [place] 07/28/2017 [...] THROMBOCYTOPENIA, UNSPECIFIED 07/28/2017 CAT RAYMUNDO MD, Ot D72.8 19 DECREASED WHITE BLOOD CELL COUNT, UNSPEC 07/28/2017 CAT RAYMUNDO MD, Ot Z12.3 1 ENCNTR SCREEN MAMMOGRAM FOR MALIGNANT NE 07/28/2017 LARRY MCPHERSON APRN Ot R92.8 OTH ABN AND INCONCLUSIVE FINDINGS ON DX 07/28/2017 ARI PARRA Ot J44.9 CHRONIC OBSTRUCTIVE PULMONARY DISEASE, U 07/28/2017 ARI PARRA Ot M16.11 UNILATERAL PRIMARY OSTEOARTHRITIS, RIGHT 07/28/2017 ARI PARRA Ot W19.XXXA UNSPECIFIED FALL, INITIAL ENCOUNTER 07/28/2017 CAT RAYMUNDO MD, Ot Z12.3 1 ENCNTR SCREEN MAMMOGRAM FOR MALIGNANT NE 07/29/2017 CAT RAYMUNDO MD Ot Z12.3 1 ENCNTR SCREEN MAMMOGRAM FOR MALIGNANT NE 08/17/2017 CAT RAYMUNDO MD, Ot Z12.3 1 ENCNTR SCREEN MAMMOGRAM FOR MALIGNANT NE 07/17/2018 LETICIA BAE MD Ot E78. 00 PURE HYPERCHOLESTEROLEMIA, UNSPECIFIED 07/17/2018 LETICIA BAE MD Ot E86. 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 0 URINARY TRACT INFECTION, SITE NOT SPECIF 07/17/2018 LETICIA BAE MD, Ot R46. 0 VERY LOW LEVEL OF PERSONAL HYGIENE 07/17/2018 LETICIA BAE MD Ot R64 CACHEXIA 07/17/2018 LETICIA BAE MD Ot R79. 89 OTHER SPECIFIED ABNORMAL FINDINGS OF BLO 07/17/2018 LETICIA BAE MD Ot Z74. 2 NEED FOR ASSIST AT HOME NO HOUSE MEMB 07/17/2018 LETICIA BAE MD Ot Z91. 89 OTH PERSONAL RISK FACTORS, NOT ELSEWHERE 07/18/2018 LETICIA BAE MD Ot E78. 00 PURE HYPERCHOLESTEROLEMIA, UNSPECIFIED 07/18/2018 LETICIA BAE MD Ot E86. 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 0 URINARY TRACT INFECTION, SITE NOT SPECIF 07/18/2018 LETICIA BAE MD Ot R46. 0 VERY LOW LEVEL OF PERSONAL HYGIENE 07/18/2018 LETICIA BAE MD Ot R64 CACHEXIA 07/18/2018 LETICIA BAE MD Ot R79. 89 OTHER SPECIFIED ABNORMAL FINDINGS OF BLO 07/18/2018 LETICIA BAE MD Ot Z74. 2 NEED FOR ASSIST AT HOME NO HOUSE MEMB 07/18/2018 LETICIA BAE MD Ot Z91. 89 OTH PERSONAL RISK FACTORS, NOT ELSEWHERE 07/19/2018 LETICIA BAE MD Ot E78. 00 PURE HYPERCHOLESTEROLEMIA, UNSPECIFIED 07/19/2018 LETICIA BAE MD Ot E86. 0 DEHYDRATION 07/19/2018 LETICIA BAE MD Ot F03. 90 UNSPECIFIED DEMENTIA WITHOUT BEHAVIORAL 07/19/2018 LETICIA BAE [...] SITE, UNSTAGEABL 07/19/2018 LETICIA BAE MD Ot N39. 0 URINARY TRACT INFECTION, SITE NOT SPECIF 07/19/2018 LETICIA BAE MD Ot R00. 1 BRADYCARDIA, UNSPECIFIED 07/19/2018 LETICIA BAE MD Ot R15. 9 FULL INCONTINENCE OF FECES 07/19/2018 LETICIA BAE MD Ot R32 UNSPECIFIED URINARY INCONTINENCE 07/19/2018 LETICIA BAE MD Ot R46. 0 VERY LOW LEVEL OF PERSONAL HYGIENE 07/19/2018 LETICIA BAE MD Ot R64 CACHEXIA 07/19/2018 LETICIA BAE MD Ot R79. 89 OTHER SPECIFIED ABNORMAL FINDINGS OF BLO 07/19/2018 LETICIA BAE MD Ot Z74. 2 NEED FOR ASSIST AT HOME NO HOUSE MEMB 07/19/2018 LETICIA BAE MD Ot Z91. 89 OTH PERSONAL RISK FACTORS, NOT ELSEWHERE 07/20/2018 LARRY MCPHERSON APRN Ot V76.12 OTH SCREEN MAMMO-MALIGN NEOPLASM OF [place] 07/20/2018 ZACKARY JUDD, CAT Gonzalez Ot V76.1 2 OTH SCREEN MAMMO-MALIGN NEOPLASM OF [place] 07/20/2018 LARRY MCPHERSON APRN Ot M16.11 UNILATERAL PRIMARY OSTEOARTHRITIS, RIGHT 07/20/2018 LARRY MCPHERSON APRN Ot M47.892 OTHER SPONDYLOSIS, CERVICAL REGION 07/20/2018 LARRY MCPHERSON APRN Ot M85.89 OTH DISRD OF BONE DENSITY AND STRUCTURE, 07/20/2018 LARRY MCPHERSON APRN Ot S00.03XA CONTUSION OF SCALP, INITIAL ENCOUNTER 07/20/2018 VIDA, LARRY R CONSTRUCTION SAFETY CONSULTANT Ot Z12.31 ENCNTR SCREEN MAMMOGRAM FOR MALIGNANT NE 07/20/2018 LARRY MCPHERSON APRN Ot R92.8 OTH ABN AND INCONCLUSIVE FINDINGS ON DX 07/20/2018 CAT RAYMUNDO MD Ot D69.6 THROMBOCYTOPENIA, UNSPECIFIED 07/20/2018 CAT RAYMUNDO MD Ot D72.8 19 DECREASED WHITE BLOOD CELL COUNT, UNSPEC 07/20/2018 CAT RAYMUNDO MD Ot Z12.3 1 ENCNTR SCREEN MAMMOGRAM FOR MALIGNANT NE 07/20/2018 LARRY MCPHERSON APRN Ot R92.8 OTH ABN AND INCONCLUSIVE FINDINGS ON DX 07/20/2018 ARI PARRA Ot J44.9 CHRONIC OBSTRUCTIVE PULMONARY DISEASE, U 07/20/2018 ARI PARRA Ot M16.11 UNILATERAL PRIMARY OSTEOARTHRITIS, RIGHT 07/20/2018 ARI PARRA Ot W19.XXXA UNSPECIFIED FALL, INITIAL ENCOUNTER 07/20/2018 CAT RAYMUNDO MD Ot Z12.3 1 ENCNTR SCREEN MAMMOGRAM FOR MALIGNANT NE 07/25/2018 LARRY MCPHERSON CONSTRUCTION SAFETY CONSULTANT Ot V76.12 OTH SCREEN MAMMO-MALIGN NEOPLASM OF [place] 07/25/2018 CAT RAYMUNDO MD Ot V76.1 2 OTH SCREEN MAMMO-MALIGN NEOPLASM OF [place] 07/25/2018 LARRY MCPHERSON APRN Ot M16.11 UNILATERAL PRIMARY OSTEOARTHRITIS, RIGHT 07/25/2018 LARRY MCPHERSON CONSTRUCTION SAFETY CONSULTANT Ot M47.892 OTHER SPONDYLOSIS, CERVICAL REGION 07/25/2018 LARRY MCPHERSON CONSTRUCTION SAFETY CONSULTANT Ot M85.89 OTH DISRD OF BONE DENSITY AND STRUCTURE, 07/25/2018 LARRY MCPHERSON CONSTRUCTION SAFETY CONSULTANT Ot S00.03XA CONTUSION OF SCALP, INITIAL ENCOUNTER 07/25/2018 LARRY MCPHERSON CONSTRUCTION SAFETY CONSULTANT Ot Z12.31 ENCNTR SCREEN MAMMOGRAM FOR MALIGNANT NE 07/25/2018 LARRY MCPHERSON CONSTRUCTION SAFETY CONSULTANT Ot R92.8 OTH ABN AND INCONCLUSIVE FINDINGS ON DX 07/25/2018 CAT RAYMUNDO MD Ot D69.6 THROMBOCYTOPENIA, UNSPECIFIED 07/25/2018 CAT RAYMUNDO MD Ot D72.8 19 DECREASED WHITE BLOOD CELL COUNT, UNSPEC 07/25/2018 CAT RAYMUNDO MD Ot Z12.3 1 ENCNTR SCREEN MAMMOGRAM FOR MALIGNANT NE 07/25/2018 LARRY MCPHERSON APRN Ot R92.8 OTH ABN AND INCONCLUSIVE FINDINGS ON DX 07/25/2018 ARI PARRA Ot J44.9 CHRONIC OBSTRUCTIVE PULMONARY DISEASE, U 07/25/2018 ARI PARRA Ot M16.11 UNILATERAL PRIMARY OSTEOARTHRITIS, RIGHT 07/25/2018 ARI PARRA Ot W19.XXXA UNSPECIFIED FALL, INITIAL ENCOUNTER 07/25/2018 ZACKARY JUDD, CAT Gonzalez Ot Z12.3 1 ENCNTR SCREEN MAMMOGRAM FOR MALIGNANT NE 07/26/2018 LARRY MCPHERSON CONSTRUCTION SAFETY CONSULTANT Ot 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 07/26/2018 LARRY MCPHERSON APRN Ot 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, STAGE 3 07/26/2018 LARRY MCPHERSON APRN Ot 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 08/02/2018 NATO AGUILAR MD Ot E44 .0 MODERATE PROTEIN-CALORIE MALNUTRITION 08/02/2018 NATO AGUILAR MD Ot 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, STAGE 3 08/02/2018 NATO AGUILAR MD Ot R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 08/06/2018 SCOTT DILLON APRN Ot E78.00 PURE HYPERCHOLESTEROLEMIA, UNSPECIFIED 08/06/2018 SCOTT DILLON APRN Ot I10 ESSENTIAL (PRIMARY) HYPERTENSION 08/06/2018 SCOTT DILLON APRN Ot S00.03XA CONTUSION OF SCALP, INITIAL ENCOUNTER 08/06/2018 SCOTT DILLON APRN Ot W19.XXXA UNSPECIFIED FALL, INITIAL ENCOUNTER 08/06/2018 SCOTT DILLON APRN Ot Z90.89 ACQUIRED ABSENCE OF OTHER ORGANS 08/09/2018 SCOTT DILLON APRN Ot E78.00 PURE HYPERCHOLESTEROLEMIA, UNSPECIFIED 08/09/2018 SCOTT DILLON CONSTRUCTION SAFETY CONSULTANT Ot I10 ESSENTIAL (PRIMARY) HYPERTENSION 08/09/2018 SCOTT DILLON APRN Ot S00.03XA CONTUSION OF SCALP, INITIAL ENCOUNTER 08/09/2018 SCOTT DILLON APRN Ot W19.XXXA UNSPECIFIED FALL, INITIAL ENCOUNTER 08/09/2018 SCOTT DILLON CONSTRUCTION SAFETY CONSULTANT Ot Z90.89 ACQUIRED ABSENCE OF OTHER ORGANS 08/10/2018 LARRY MCPHERSON CONSTRUCTION SAFETY CONSULTANT Ot 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 08/10/2018 LARRY MCPHERSON CONSTRUCTION SAFETY CONSULTANT Ot 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, STAGE 3 08/10/2018 LARRY MCPHERSON CONSTRUCTION SAFETY CONSULTANT Ot 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 08/15/2018 LARRY MCPHERSON CONSTRUCTION SAFETY CONSULTANT Ot 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 08/15/2018 LARRY MCPHERSON CONSTRUCTION SAFETY CONSULTANT Ot 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, STAGE 3 08/15/2018 LARRY MCPHERSON CONSTRUCTION SAFETY CONSULTANT Ot 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 08/16/2018 LARRY MCPHERSON CONSTRUCTION SAFETY CONSULTANT Ot 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 08/16/2018 VIDA, LARRY R CONSTRUCTION SAFETY CONSULTANT Ot 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, STAGE 3 08/16/2018 LARRY MCPHERSON CONSTRUCTION SAFETY CONSULTANT Ot 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 08/16/2018 LARRY MCPHERSON CONSTRUCTION SAFETY CONSULTANT Ot 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 08/16/2018 LARRY MCPHERSON CONSTRUCTION SAFETY CONSULTANT Ot 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, STAGE 3 08/16/2018 LARRY MCPHERSON CONSTRUCTION SAFETY CONSULTANT Ot 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 08/22/2018 LAUREN JUDD, NATO Cordova Ot E44 .0 MODERATE PROTEIN-CALORIE MALNUTRITION 08/22/2018 LAUREN JUDD, NATO Cordova Ot 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, STAGE 3 08/22/2018 LAUREN JUDD, NATO Cordova Ot R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 08/23/2018 LARRY MCPHERSON CONSTRUCTION SAFETY CONSULTANT Ot V76.12 OTH SCREEN MAMMO-MALIGN NEOPLASM OF [place] 08/23/2018 ZACKARY JUDD, CAT Gonzalez Ot V76.1 2 OTH SCREEN MAMMO-MALIGN NEOPLASM OF [place] 08/23/2018 LARRY MCPHERSON APRN Ot M16.11 UNILATERAL PRIMARY OSTEOARTHRITIS, RIGHT 08/23/2018 LARRY MCPHERSON CONSTRUCTION SAFETY CONSULTANT Ot M47.892 OTHER SPONDYLOSIS, CERVICAL REGION 08/23/2018 LARRY MCPHERSON APRN Ot M85.89 OTH DISRD OF BONE DENSITY AND STRUCTURE, 08/23/2018 LARRY MCPHERSON CONSTRUCTION SAFETY CONSULTANT Ot S00.03XA CONTUSION OF SCALP, INITIAL ENCOUNTER 08/23/2018 LARRY MCPHERSON CONSTRUCTION SAFETY CONSULTANT Ot Z12.31 ENCNTR SCREEN MAMMOGRAM FOR MALIGNANT NE 08/23/2018 LARRY MCPHERSON APRN Ot R92.8 OTH ABN AND INCONCLUSIVE FINDINGS ON DX 08/23/2018 CAT RAYMUNDO MD Ot D69.6 THROMBOCYTOPENIA, UNSPECIFIED 08/23/2018 CAT RAYMUNDO MD Ot D72.8 19 DECREASED WHITE BLOOD CELL COUNT, UNSPEC 08/23/2018 CAT RAYMUNDO MD Ot Z12.3 1 ENCNTR SCREEN MAMMOGRAM FOR MALIGNANT NE 08/23/2018 LARRY MCPHERSON APRN Ot R92.8 OTH ABN AND INCONCLUSIVE FINDINGS ON DX 08/23/2018 ARI PARRA Ot J44.9 CHRONIC OBSTRUCTIVE PULMONARY DISEASE, U 08/23/2018 ARI PARRA Ot M16.11 UNILATERAL PRIMARY OSTEOARTHRITIS, RIGHT 08/23/2018 ARI PARRA Ot W19.XXXA UNSPECIFIED FALL, INITIAL ENCOUNTER 08/23/2018 CAT RAYMUNDO MD Ot Z12.3 1 ENCNTR SCREEN MAMMOGRAM FOR MALIGNANT NE 08/23/2018 LARRY MCPHERSON CONSTRUCTION SAFETY CONSULTANT Ot 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 08/23/2018 LARRY MCPHERSON CONSTRUCTION SAFETY CONSULTANT Ot 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, STAGE 3 08/23/2018 LARRY MCPHERSON CONSTRUCTION SAFETY CONSULTANT Ot 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 08/23/2018 NATO AGUILAR MD Ot E44 .0 MODERATE PROTEIN-CALORIE MALNUTRITION 08/23/2018 NATO AGUILAR MD Ot 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, STAGE 3 08/23/2018 NATO AGUILAR MD Ot R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 08/23/2018 LARRY MCPHERSON CONSTRUCTION SAFETY CONSULTANT Ot 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 08/23/2018 LARRY MCPHERSON CONSTRUCTION SAFETY CONSULTANT Ot 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, STAGE 3 08/23/2018 LARRY MCPHERSON CONSTRUCTION SAFETY CONSULTANT Ot 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 08/23/2018 LARRY MCPHERSON CONSTRUCTION SAFETY CONSULTANT Ot 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 08/23/2018 LARRY MCPHERSON CONSTRUCTION SAFETY CONSULTANT Ot 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, STAGE 3 08/23/2018 LARRY MCPHERSON CONSTRUCTION SAFETY CONSULTANT Ot 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 08/23/2018 LARRY MCPHERSON CONSTRUCTION SAFETY CONSULTANT Ot 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 08/23/2018 VIDA LARRY R CONSTRUCTION SAFETY CONSULTANT Ot 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, STAGE 3 08/23/2018 LARRY MCPHERSON R CONSTRUCTION SAFETY CONSULTANT Ot 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 08/25/2018 VIDA LARRY R CONSTRUCTION SAFETY CONSULTANT Ot 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 08/25/2018 VIDA, LARRY R CONSTRUCTION SAFETY CONSULTANT Ot 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, STAGE 3 08/25/2018 VIDA LARRY R CONSTRUCTION SAFETY CONSULTANT Ot 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 08/28/2018 VIDA, LARRY R CONSTRUCTION SAFETY CONSULTANT Ot 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 08/28/2018 VIDA, LARRY R CONSTRUCTION SAFETY CONSULTANT Ot 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, STAGE 3 08/28/2018 VIDA LARRY R CONSTRUCTION SAFETY CONSULTANT Ot 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 08/29/2018 VIDA LARRY R CONSTRUCTION SAFETY CONSULTANT Ot 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 08/29/2018 VIDA LARRY R CONSTRUCTION SAFETY CONSULTANT Ot 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, STAGE 3 08/29/2018 VIDA LARRY R CONSTRUCTION SAFETY CONSULTANT Ot 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 09/05/2018 VIDA LARRY R CONSTRUCTION SAFETY CONSULTANT Ot 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 09/05/2018 VIDA, LARRY R CONSTRUCTION SAFETY CONSULTANT Ot 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, STAGE 3 09/05/2018 VIDA LARRY R CONSTRUCTION SAFETY CONSULTANT Ot 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 09/05/2018 VIDA LARRY R CONSTRUCTION SAFETY CONSULTANT Ot 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 09/05/2018 VIDA LARRY R CONSTRUCTION SAFETY CONSULTANT Ot 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, STAGE 3 09/05/2018 VIDA LARRY R CONSTRUCTION SAFETY CONSULTANT Ot 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 09/07/2018 VIDA LARRY R CONSTRUCTION SAFETY CONSULTANT Ot 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 09/07/2018 VIDA LARRY R CONSTRUCTION SAFETY CONSULTANT Ot 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, STAGE 3 09/07/2018 VIDA LARRY R CONSTRUCTION SAFETY CONSULTANT Ot 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 09/14/2018 VIDA LARRY R CONSTRUCTION SAFETY CONSULTANT Ot 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 09/14/2018 VIDA LARRY R CONSTRUCTION SAFETY CONSULTANT Ot 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, STAGE 3 09/14/2018 LARRY MCPHERSON APRN Ot 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 10/18/2018 LARRY MCPHERSON APRN Ot V76.12 OTH SCREEN MAMMO-MALIGN NEOPLASM OF [place] 10/18/2018 CAT RAYMUNDO MD Ot V76.1 2 OTH SCREEN MAMMO-MALIGN NEOPLASM OF [place] 10/18/2018 [...] THROMBOCYTOPENIA, UNSPECIFIED 10/18/2018 CAT RAYMUNDO MD Ot D72.8 19 DECREASED WHITE BLOOD CELL COUNT, UNSPEC 10/18/2018 CAT RAYMUNDO MD Ot Z12.3 1 ENCNTR SCREEN MAMMOGRAM FOR MALIGNANT NE 10/18/2018 LARRY MCPHERSON APRN Ot R92.8 OTH ABN AND INCONCLUSIVE FINDINGS ON DX 10/18/2018 ARI PARRA Ot J44.9 CHRONIC OBSTRUCTIVE PULMONARY DISEASE, U 10/18/2018 ARI PARRA Ot M16.11 UNILATERAL PRIMARY OSTEOARTHRITIS, RIGHT 10/18/2018 ARI PARRA Ot W19.XXXA UNSPECIFIED FALL, INITIAL ENCOUNTER 10/18/2018 CAT RAYMUNDO MD Ot Z12.3 1 ENCNTR SCREEN MAMMOGRAM FOR MALIGNANT NE 10/18/2018 LARRY MCPHERSON APRN Ot 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 10/18/2018 LARRY MCPHERSON APRN Ot 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, STAGE 3 10/18/2018 LARRY MCPHERSON APRN Ot 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 10/18/2018 NATO AGUILAR MD Ot E44 .0 MODERATE PROTEIN-CALORIE MALNUTRITION 10/18/2018 NATO AGUILAR MD Ot 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, STAGE 3 10/18/2018 NATO AGUILAR MD Ot R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 10/18/2018 LARRY MCPHERSON APRN Ot 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 10/18/2018 LARRY MCPHERSON CONSTRUCTION SAFETY CONSULTANT Ot 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, STAGE 3 10/18/2018 LARRY MCPHERSON CONSTRUCTION SAFETY CONSULTANT Ot 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 10/18/2018 LARRY MCPHERSON CONSTRUCTION SAFETY CONSULTANT Ot 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 10/18/2018 LARRY MCPHERSON CONSTRUCTION SAFETY CONSULTANT Ot 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, STAGE 3 10/18/2018 LARRY MCPHERSON CONSTRUCTION SAFETY CONSULTANT Ot 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 10/18/2018 LARRY MCPHERSON CONSTRUCTION SAFETY CONSULTANT Ot 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 10/18/2018 LARRY MCPHERSON CONSTRUCTION SAFETY CONSULTANT Ot 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, STAGE 3 10/18/2018 LARRY MCPHERSON CONSTRUCTION SAFETY CONSULTANT Ot 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 10/18/2018 LARRY MCPHERSON CONSTRUCTION SAFETY CONSULTANT Ot 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 10/18/2018 LARRY MCPHERSON CONSTRUCTION SAFETY CONSULTANT Ot 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, STAGE 3 10/18/2018 LARRY MCPHERSON CONSTRUCTION SAFETY CONSULTANT Ot 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 10/18/2018 LARRY MCPHERSON CONSTRUCTION SAFETY CONSULTANT Ot V76.12 OTH SCREEN MAMMO-MALIGN NEOPLASM OF [place] 10/18/2018 ZACKARY JUDD, CAT Gonzalez Ot V76.1 2 OTH SCREEN MAMMO-MALIGN NEOPLASM OF [place] 10/18/2018 LARRY MCPHERSON APRN Ot M16.11 UNILATERAL PRIMARY OSTEOARTHRITIS, RIGHT 10/18/2018 LARRY MCPHERSON CONSTRUCTION SAFETY CONSULTANT Ot M47.892 OTHER SPONDYLOSIS, CERVICAL REGION 10/18/2018 LARRY MCPHERSON APRN Ot M85.89 OTH DISRD OF BONE DENSITY AND STRUCTURE, 10/18/2018 LARRY MCPHERSON CONSTRUCTION SAFETY CONSULTANT Ot S00.03XA CONTUSION OF SCALP, INITIAL ENCOUNTER 10/18/2018 LARRY MCPHERSON APRN Ot Z12.31 ENCNTR SCREEN MAMMOGRAM FOR MALIGNANT NE 10/18/2018 LARRY MCPHERSON APRN Ot R92.8 OTH ABN AND INCONCLUSIVE FINDINGS ON DX 10/18/2018 CAT RAYMUNDO MD Ot D69.6 THROMBOCYTOPENIA, UNSPECIFIED 10/18/2018 CAT RAYMUNDO MD Ot D72.8 19 DECREASED WHITE BLOOD CELL COUNT, UNSPEC 10/18/2018 CAT RAYMUNDO MD Ot Z12.3 1 ENCNTR SCREEN MAMMOGRAM FOR MALIGNANT NE 10/18/2018 LARRY MCPHERSON APRN Ot R92.8 OTH ABN AND INCONCLUSIVE FINDINGS ON DX 10/18/2018 ARI PARRA Ot J44.9 CHRONIC OBSTRUCTIVE PULMONARY DISEASE, U 10/18/2018 ARI PARRA Ot M16.11 UNILATERAL PRIMARY OSTEOARTHRITIS, RIGHT 10/18/2018 ARI PARRA Ot W19.XXXA UNSPECIFIED FALL, INITIAL ENCOUNTER 10/18/2018 CAT RAYMUNDO MD Ot Z12.3 1 ENCNTR SCREEN MAMMOGRAM FOR MALIGNANT NE 10/18/2018 LARRY MCPHERSON APRN Ot 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 10/18/2018 LARRY MCPHERSON APRN Ot 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, STAGE 3 10/18/2018 LARRY MCPHERSON APRN Ot 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 10/18/2018 NATO AGUILAR MD Ot E44 .0 MODERATE PROTEIN-CALORIE MALNUTRITION 10/18/2018 NATO AGUILAR MD Ot 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, STAGE 3 10/18/2018 NATO AGUILAR MD Ot R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 10/18/2018 LARRY MCPHERSON APRN Ot 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 10/18/2018 LARRY MCPHERSON APRN Ot 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, STAGE 3 10/18/2018 LARRY MCPHERSON APRN Ot 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 10/18/2018 LARRY MCPHERSON APRN Ot 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 10/18/2018 LARRY MCPHERSON CONSTRUCTION SAFETY CONSULTANT Ot 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, STAGE 3 10/18/2018 LARRY MCPHERSON CONSTRUCTION SAFETY CONSULTANT Ot 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 10/18/2018 LARRY MCPHERSON APRN Ot 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 10/18/2018 VIDA LARRY Colmenares APRN Ot 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, STAGE 3 10/18/2018 VIDA LARRY Colmenares APRN Ot 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 10/18/2018 VIDA LARRY Colmenares APRN Ot 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 10/18/2018 VIDA LARRY Colmenares APRN Ot 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, STAGE 3 10/18/2018 VIDA LARRY Colmenares APRN Ot 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 10/18/2018 SCOTT DILLON APRN [...] Ot Z90.89 ACQUIRED ABSENCE OF OTHER ORGANS 11/12/2018 SCOTT DILLON APRN Ot E78.00 PURE HYPERCHOLESTEROLEMIA, UNSPECIFIED 11/12/2018 SCOTT DILLON APRN Ot F03.90 UNSPECIFIED DEMENTIA WITHOUT BEHAVIORAL 11/12/2018 SCOTT DILLON APRN Ot G89.11 ACUTE PAIN DUE TO TRAUMA 11/12/2018 SCOTT DILOLN APRN Ot I10 ESSENTIAL (PRIMARY) HYPERTENSION 11/12/2018 SCOTT DILLON APRN Ot M53 .3 SACROCOCCYGEAL DISORDERS, NOT ELSEWHERE 11/12/2018 DILLON, PETER J CONSTRUCTION SAFETY CONSULTANT Ot R40.2142 COMA SCALE, EYES OPEN, SPONTANEOUS, EMR 11/12/2018 SCOTT DILLON APRN Ot R40.2252 COMA SCALE, BEST VERBAL RESPONSE, ORIENT 11/12/2018 SCOTT DILLON APRN Ot R40.2362 COMA SCALE, BEST MOTOR RESPONSE, OBEYS C 11/12/2018 SCOTT DILLON APRN Ot S09.90XA UNSPECIFIED INJURY OF HEAD, INITIAL ENCO 11/12/2018 SCOTT DILLON APRN Ot W01.198A FALL SAME LEV FROM SLIP/TRIP W STRIKE AG 11/12/2018 SCOTT DILLON APRN Ot Z90.89 ACQUIRED ABSENCE OF OTHER ORGANS 11/17/2018 SCOTT DILLON APRN Ot E78.00 PURE HYPERCHOLESTEROLEMIA, UNSPECIFIED 11/17/2018 SCOTT DILLON APRN Ot G50 .0 TRIGEMINAL NEURALGIA 11/17/2018 SCOTT DILLON APRN Ot I10 ESSENTIAL (PRIMARY) HYPERTENSION 11/17/2018 SCOTT DILLON APRN Ot N39 .0 URINARY TRACT INFECTION, SITE NOT SPECIF 11/17/2018 SCOTT DILLON APRN Ot R40.2142 COMA SCALE, EYES OPEN, SPONTANEOUS, EMR 11/17/2018 SCOTT DILLON APRN Ot R40.2252 COMA SCALE, BEST VERBAL RESPONSE, ORIENT 11/17/2018 SCOTT DILLON APRN Ot R40.2362 COMA SCALE, BEST MOTOR RESPONSE, OBEYS C 11/17/2018 SCOTT DILLON APRN Ot S00.81XA ABRASION OF OTHER PART OF HEAD, INITIAL 11/17/2018 SCOTT DILLON APRN Ot W01.0XXA FALL SAME LEV FROM SLIP/TRIP W/O STRIKE 11/17/2018 SCOTT DILLON APRN Ot Y92.[address] 11/17/2018 SCOTT DILLON APRN Ot Z90.89 ACQUIRED ABSENCE OF OTHER ORGANS 11/17/2018 SCOTT DILLON APRN Ot Z91.81 HISTORY OF FALLING 11/21/2018 SCOTT DILLON APRN Ot E78.00 PURE HYPERCHOLESTEROLEMIA, UNSPECIFIED 11/21/2018 SCOTT DILLON APRN Ot G50 .0 TRIGEMINAL NEURALGIA 11/21/2018 SCOTT DILLON APRN Ot I10 ESSENTIAL (PRIMARY) HYPERTENSION 11/21/2018 SCOTT DILLON APRN Ot N39 .0 URINARY TRACT INFECTION, SITE NOT SPECIF 11/21/2018 SCOTT DILLON APRN Ot R40.2142 COMA SCALE, EYES OPEN, SPONTANEOUS, EMR 11/21/2018 SCOTT DILLON APRN Ot R40.2252 COMA SCALE, BEST VERBAL RESPONSE, ORIENT 11/21/2018 SCOTT DILLON APRN Ot R40.2362 COMA SCALE, BEST MOTOR RESPONSE, OBEYS C 11/21/2018 SCOTT DILLON APRN Ot S00.81XA ABRASION OF OTHER PART OF HEAD, INITIAL 11/21/2018 SCOTT DILLON APRN Ot W01.0XXA FALL SAME LEV FROM SLIP/TRIP W/O STRIKE 11/21/2018 SCOTT DILLON APRN Ot Y92.[address] 11/21/2018 SCOTT DILLON APRN Ot Z90.89 ACQUIRED ABSENCE OF OTHER ORGANS 11/21/2018 SCOTT DILLON APRN Ot Z91.81 HISTORY OF FALLING 11/24/2018 SCOTT DILLON APRN Ot E78.00 PURE HYPERCHOLESTEROLEMIA, UNSPECIFIED 11/24/2018 SCOTT DILLON APRN Ot F03.90 UNSPECIFIED DEMENTIA WITHOUT BEHAVIORAL 11/24/2018 SCOTT DILLON APRN Ot G89.11 ACUTE PAIN DUE TO TRAUMA 11/24/2018 SCOTT DILLON APRN Ot I10 ESSENTIAL (PRIMARY) HYPERTENSION 11/24/2018 SCOTT DILLON APRN Ot M53 .3 SACROCOCCYGEAL DISORDERS, NOT ELSEWHERE 11/24/2018 SCOTT DILLON APRN Ot R40.2142 COMA SCALE, EYES OPEN, SPONTANEOUS, EMR 11/24/2018 SCOTT DILLON APRN Ot R40.2252 COMA SCALE, BEST VERBAL RESPONSE, ORIENT 11/24/2018 SCOTT DILLON APRN Ot R40.2362 COMA SCALE, BEST MOTOR RESPONSE, OBEYS C 11/24/2018 SCOTT DILLON APRN Ot S09.90XA UNSPECIFIED INJURY OF HEAD, INITIAL ENCO 11/24/2018 SCOTT DILLON APRN Ot W01.198A FALL SAME LEV FROM SLIP/TRIP W STRIKE AG 11/24/2018 SCOTT DILLON APRN Ot Z90.89 ACQUIRED ABSENCE OF OTHER ORGANS 11/29/2018 NIKKY SEPULVEDA MD Ot E78. 00 PURE HYPERCHOLESTEROLEMIA, UNSPECIFIED 11/29/2018 NIKKY SEPULVEDA MD Ot I10 ESSENTIAL (PRIMARY) HYPERTENSION 11/29/2018 NIKKY SEPULVEDA MD Ot R40.2142 COMA SCALE, EYES OPEN, SPONTANEOUS, EMR 11/29/2018 NIKKY SEPULVEDA MD Ot R40.2252 COMA SCALE, BEST VERBAL RESPONSE, ORIENT 11/29/2018 NIKKY SEPULVEDA MD Ot R40.2362 COMA SCALE, BEST MOTOR RESPONSE, OBEYS C 11/29/2018 NIKKY SEPULVEDA MD Ot S00.03XA CONTUSION OF SCALP, INITIAL ENCOUNTER 11/29/2018 NIKKY SEPULVEDA MD Ot S09.90XA UNSPECIFIED INJURY OF HEAD, INITIAL ENCO 11/29/2018 NIKKY SEPULVEDA MD Ot W01.198A FALL SAME LEV FROM SLIP/TRIP W STRIKE AG 11/29/2018 NIKKY SEPULVEDA MD Ot Z87.891 PERSONAL HISTORY OF NICOTINE DEPENDENCE 11/29/2018 NIKKY SEPULVEDA MD Ot Z90. 89 ACQUIRED ABSENCE OF OTHER ORGANS 12/01/2018 NIKKY SEPULVEDA MD Ot E78. 00 PURE HYPERCHOLESTEROLEMIA, UNSPECIFIED 12/01/2018 NIKKY SEPULVEDA MD Ot I10 ESSENTIAL (PRIMARY) HYPERTENSION 12/01/2018 NIKKY SEPULVEDA MD Ot R40.2142 COMA SCALE, EYES OPEN, SPONTANEOUS, EMR 12/01/2018 NIKKY SEPULVEDA MD Ot R40.2252 COMA SCALE, BEST VERBAL RESPONSE, ORIENT 12/01/2018 NIKYK SEPULVEDA MD Ot R40.2362 COMA SCALE, BEST MOTOR RESPONSE, OBEYS C 12/01/2018 NIKKY SEPULVEDA MD Ot S00.03XA CONTUSION OF SCALP, INITIAL ENCOUNTER 12/01/2018 NIKKY SEPULVEDA MD Ot S09.90XA UNSPECIFIED INJURY OF HEAD, INITIAL ENCO 12/01/2018 NIKKY SEPULVEDA MD Ot W01.198A FALL SAME LEV FROM SLIP/TRIP W STRIKE AG 12/01/2018 NIKKY SEPULVEDA MD Ot Z87.891 PERSONAL HISTORY OF NICOTINE DEPENDENCE 12/01/2018 NIKKY SEPULVEDA MD Ot Z90. 89 ACQUIRED ABSENCE OF OTHER ORGANS 12/31/2018 DARYL DO SUE Roxann Ot E78.00 PURE HYPERCHOLESTEROLEMIA, UNSPECIFIED 12/31/2018 [facility] SUE Roxann Ot F03.90 UNSPECIFIED DEMENTIA WITHOUT BEHAVIORAL 12/31/2018 [facility] SUE K Ot I10 ESSENTIAL (PRIMARY) HYPERTENSION 12/31/2018 [facility] SUE Roxann Ot S00.03X A CONTUSION OF SCALP, INITIAL ENCOUNTER 12/31/2018 [facility] SEU Roxann Ot S09.90X A UNSPECIFIED INJURY OF HEAD, INITIAL ENCO 12/31/2018 [facility] SUE Roxann Ot S16.1XX A STRAIN OF MUSCLE, FASCIA AND TENDON AT N 12/31/2018 [facility] SUE Roxann Ot S70.01X A CONTUSION OF RIGHT HIP, INITIAL ENCOUNTE 12/31/2018 [facility] SUE K Ot S80.01X A CONTUSION OF RIGHT KNEE, INITIAL ENCOUNT 12/31/2018 DARYL SUE Ot W01.10X A FALL SAME LEV FROM SLIP/TRIP W STRIKE AG 12/31/2018 DARYL DO SUE K Ot Y92.002 BATHRM OF [facility] NON-INSTITUT RESDNCE SNGL 12/31/2018 [facility] SUE Roxann Ot Z87.891 PERSONAL HISTORY OF NICOTINE DEPENDENCE 12/31/2018 [facility] SUE K Ot Z90.89 ACQUIRED ABSENCE OF OTHER ORGANS 01/02/2019 [facility] SUE Roxann Ot E78.00 PURE HYPERCHOLESTEROLEMIA, UNSPECIFIED 01/02/2019 [facility] SUE Roxann Ot F03.90 UNSPECIFIED DEMENTIA WITHOUT BEHAVIORAL 01/02/2019 [facility] ESSENTIAL (PRIMARY) HYPERTENSION 01/02/2019 [facility] SUE Roxann Ot S00.03X A CONTUSION OF SCALP, INITIAL ENCOUNTER 01/02/2019 [facility] SUE Roxann Ot S09.90X A UNSPECIFIED INJURY OF HEAD, INITIAL ENCO 01/02/2019 DARYL DO SUE Roxann Ot S16.1XX A STRAIN OF MUSCLE, FASCIA AND TENDON AT N 01/02/2019 [facility] SUE K Ot S70.01X A CONTUSION OF RIGHT HIP, INITIAL ENCOUNTE 01/02/2019 DARYL SUE MARTINEZ Ot S80.01X A CONTUSION OF RIGHT KNEE, INITIAL ENCOUNT 01/02/2019 DARYL SUE Roxann Ot W01.10X A FALL SAME LEV FROM SLIP/TRIP W STRIKE AG 01/02/2019 DARYL MARTINEZ SUE Roxann Ot Y92.002 BATHRM OF [facility] 01/02/2019 DARYL SUE Roxann Ot Z87.891 PERSONAL HISTORY OF NICOTINE DEPENDENCE 01/02/2019 DARYL DO SUE K Ot Z90.89 ACQUIRED ABSENCE OF OTHER ORGANS 01/06/2019 DARYL SUE MARTINEZ Ot E78.00 PURE HYPERCHOLESTEROLEMIA, UNSPECIFIED 01/06/2019 [facility] F03.90 UNSPECIFIED DEMENTIA WITHOUT BEHAVIORAL 01/06/2019 DARYL SUE MARTINEZ Ot I10 ESSENTIAL (PRIMARY) HYPERTENSION 01/06/2019 [place] SUE MARTINEZ Ot S00.03X A CONTUSION OF SCALP, INITIAL ENCOUNTER 01/06/2019 SUE BRITO DO Ot S09.90X A UNSPECIFIED INJURY OF HEAD, INITIAL ENCO 01/06/2019 DARYL SUE MARTINEZ Ot S16.1XX A STRAIN OF MUSCLE, FASCIA AND TENDON AT N 01/06/2019 DARYL DO SUE K Ot S70.01X A CONTUSION OF RIGHT HIP, INITIAL ENCOUNTE 01/06/2019 DARYL SUE MARTINEZ Ot S80.01X A CONTUSION OF RIGHT KNEE, INITIAL ENCOUNT 01/06/2019 DARYL SUE Roxann Ot W01.10X A FALL SAME LEV FROM SLIP/TRIP W STRIKE AG 01/06/2019 DARYL MARTINEZ SUE Roxann Ot Y92.002 BATHRM OF [facility] 01/06/2019 SUE BRITO DO Ot Z87.891 PERSONAL HISTORY OF NICOTINE DEPENDENCE 01/06/2019 DARYL SUE MARTINEZ Ot Z90.89 ACQUIRED ABSENCE OF OTHER ORGANS 01/18/2019 CAT RAYMUNDO MD Ot M25.5 12 PAIN IN LEFT SHOULDER 01/18/2019 CAT RAYMUNDO MD Ot M25.5 62 PAIN IN LEFT KNEE 01/18/2019 CAT RAYMUNDO MD Ot W19.XXXA UNSPECIFIED FALL, INITIAL ENCOUNTER 07/03/2019 Ot J02.9 ACUT E PHARYNGITIS, UNSPECIFIED 07/03/2019 Ot R50.9 FEVE R, UNSPECIFIED 07/06/2019 CAT RAYMUNDO MD Ot E78.5 HYPERLIPIDEMIA, UNSPECIFIED 07/06/2019 CAT RAYMUNDO MD Ot F03.9 0 UNSPECIFIED DEMENTIA WITHOUT BEHAVIORAL 07/06/2019 CAT RAYMUNDO MD Ot F03.9 1 UNSPECIFIED DEMENTIA WITH BEHAVIORAL DIS 07/06/2019 CAT RAYMUNDO MD Ot F41.8 OTHER SPECIFIED ANXIETY DISORDERS 07/06/2019 CAT RAYMUNDO MD Ot G50.0 TRIGEMINAL NEURALGIA 07/06/2019 CAT RAYMUNDO MD Ot I10 ESSENTIAL (PRIMARY) HYPERTENSION 07/06/2019 CAT RAYMUNDO MD Ot K21.9 GASTRO-ESOPHAGEAL REFLUX DISEASE WITHOUT 07/06/2019 CTA RAYMUNDO MD Ot M62.8 1 MUSCLE WEAKNESS (GENERALIZED) 07/06/2019 CAT RAYMUNDO MD Ot R13.1 1 DYSPHAGIA, ORAL PHASE 07/06/2019 CAT RAYMUNDO MD Ot R13.1 2 DYSPHAGIA, OROPHARYNGEAL PHASE 07/06/2019 CAT RAYMUNDO MD Ot R26.8 9 OTHER ABNORMALITIES OF GAIT AND MOBILITY 07/06/2019 CAT RAYMUNDO MD Ot R41.8 41 COGNITIVE COMMUNICATION DEFICIT 07/06/2019 CAT RAYMUNDO MD Ot R53.1 WEAKNESS 07/06/2019 CAT RAYMUNDO MD Ot Z87.4 40 PERSONAL HISTORY OF URINARY (TRACT) INFE 07/06/2019 CAT RAYMUNDO MD Ot Z87.8 91 PERSONAL HISTORY OF NICOTINE DEPENDENCE 07/06/2019 CAT RAYMUNDO MD Ot E78.5 HYPERLIPIDEMIA, UNSPECIFIED 07/06/2019 CAT RAYMUNDO MD Ot F03.9 0 UNSPECIFIED DEMENTIA WITHOUT BEHAVIORAL 07/06/2019 CAT RAYMUNDO MD Ot F03.9 1 UNSPECIFIED DEMENTIA WITH BEHAVIORAL DIS 07/06/2019 CAT RAYMUNDO MD Ot F41.8 OTHER SPECIFIED ANXIETY DISORDERS 07/06/2019 CAT RAYMUNDO MD Ot G50.0 TRIGEMINAL NEURALGIA 07/06/2019 CAT RAYMUNDO MD Ot I10 ESSENTIAL (PRIMARY) HYPERTENSION 07/06/2019 CAT RAYMUNDO MD Ot K21.9 GASTRO-ESOPHAGEAL REFLUX DISEASE WITHOUT 07/06/2019 CAT RAYMUNDO MD Ot M62.8 1 MUSCLE WEAKNESS (GENERALIZED) 07/06/2019 CAT RAYMUNDO MD Ot R13.1 1 DYSPHAGIA, ORAL PHASE 07/06/2019 CAT RAYMUNDO MD Ot R13.1 2 DYSPHAGIA, OROPHARYNGEAL PHASE 07/06/2019 CAT RAYMUNDO MD Ot R26.8 9 OTHER ABNORMALITIES OF GAIT AND MOBILITY 07/06/2019 CAT RAYMUNDO MD Ot R41.8 41 COGNITIVE COMMUNICATION DEFICIT 07/06/2019 CAT RAYMUNDO MD Ot R53.1 WEAKNESS 07/06/2019 CAT RAYMUNDO MD Ot Z87.4 40 PERSONAL HISTORY OF URINARY (TRACT) INFE 07/06/2019 CAT RAYMUNDO MD Ot Z87.8 91 PERSONAL HISTORY OF NICOTINE DEPENDENCE 07/06/2019 Ot J02.9 ACUT E PHARYNGITIS, UNSPECIFIED 07/06/2019 Ot R50.9 FEVE R, UNSPECIFIED 07/13/2019 CAT RAYMUNDO MD Ot E78.5 HYPERLIPIDEMIA, UNSPECIFIED 07/13/2019 CAT RAYMUNDO MD Ot F03.9 0 UNSPECIFIED DEMENTIA WITHOUT BEHAVIORAL 07/13/2019 CAT RAYMUNDO MD Ot F03.9 1 UNSPECIFIED DEMENTIA WITH BEHAVIORAL DIS 07/13/2019 CAT RAYMUNDO MD Ot F41.8 OTHER SPECIFIED ANXIETY DISORDERS 07/13/2019 CAT RAYMUNDO MD Ot G50.0 TRIGEMINAL NEURALGIA 07/13/2019 CAT RAYMUNDO MD Ot I10 ESSENTIAL (PRIMARY) HYPERTENSION 07/13/2019 CAT RAYMUNDO MD Ot K21.9 GASTRO-ESOPHAGEAL REFLUX DISEASE WITHOUT 07/13/2019 CAT RAYMUNDO MD Ot M62.8 1 MUSCLE WEAKNESS (GENERALIZED) 07/13/2019 CAT RAYMUNDO MD Ot R13.1 1 DYSPHAGIA, ORAL PHASE 07/13/2019 CAT RAYMUNDO MD Ot R13.1 2 DYSPHAGIA, OROPHARYNGEAL PHASE 07/13/2019 CAT RAYMUNDO MD Ot R26.8 9 OTHER ABNORMALITIES OF GAIT AND MOBILITY 07/13/2019 CAT RAYMUNDO MD Ot R41.8 41 COGNITIVE COMMUNICATION DEFICIT 07/13/2019 CAT RAYMUNDO MD Ot R53.1 WEAKNESS 07/13/2019 CAT RAYMUNDO MD Ot Z87.4 40 PERSONAL HISTORY OF URINARY (TRACT) INFE 07/13/2019 CAT RAYMUNDO MD Ot Z87.8 91 PERSONAL HISTORY OF NICOTINE DEPENDENCE 07/13/2019 Ot J02.9 ACUT E PHARYNGITIS, UNSPECIFIED 07/13/2019 Ot R50.9 FEVE R, UNSPECIFIED 07/25/2019 CAT RAYMUNDO MD Ot E78.5 HYPERLIPIDEMIA, UNSPECIFIED 07/25/2019 CTA RAYMUNDO MD Ot F03.9 0 UNSPECIFIED DEMENTIA WITHOUT BEHAVIORAL 07/25/2019 CAT RAYMUNDO MD, Ot F03.9 1 UNSPECIFIED DEMENTIA WITH BEHAVIORAL DIS 07/25/2019 CAT RAYMUNDO MD Ot F41.8 OTHER SPECIFIED ANXIETY DISORDERS 07/25/2019 CAT RAYMUNDO MD Ot G50.0 TRIGEMINAL NEURALGIA 07/25/2019 CAT RAYMUNDO MD Ot I10 ESSENTIAL (PRIMARY) HYPERTENSION 07/25/2019 CAT RAYMUNDO MD Ot K21.9 GASTRO-ESOPHAGEAL REFLUX DISEASE WITHOUT 07/25/2019 CAT RAYMUNDO MD Ot M62.8 1 MUSCLE WEAKNESS (GENERALIZED) 07/25/2019 CAT RAYMUNDO MD Ot R13.1 1 DYSPHAGIA, ORAL PHASE 07/25/2019 CAT RAYMUNDO MD Ot R13.1 2 DYSPHAGIA, OROPHARYNGEAL PHASE 07/25/2019 CAT RAYMUNDO MD Ot R26.8 9 OTHER ABNORMALITIES OF GAIT AND MOBILITY 07/25/2019 CAT RAYMUNDO MD Ot R41.8 41 COGNITIVE COMMUNICATION DEFICIT 07/25/2019 CAT RAYMUNDO MD Ot R53.1 WEAKNESS 07/25/2019 CAT RAYMUNDO MD Ot Z87.4 40 PERSONAL HISTORY OF URINARY (TRACT) INFE 07/25/2019 CAT RAYMUNDO MD Ot Z87.8 91 PERSONAL HISTORY OF NICOTINE DEPENDENCE 07/25/2019 Ot J02.9 ACUT E PHARYNGITIS, UNSPECIFIED 07/25/2019 Ot R50.9 FEVE R, UNSPECIFIED Procedures There is no data. Results Test Result Range Complete blood count (CBC) with automate d white blood cell (WBC) differential - 07/16/18 18:00 Blood leukocytes automated count (number/volume) 7.2 10*3/uL 4.3-11.0 Blood erythrocytes automated count (number/volume) 4.21 10*6/uL 4.35-5.85 Venous blood hemoglobin measurement (mass/volume) 14.6 g/dL 11.5-16.0 Blood hematocrit (volume fraction) 43 % 35-52 Automated erythrocyte mean corpuscular volume 103 [foz_us] 80-99 Automated erythrocyte mean corpuscular h emoglobin (mass per erythrocyte) 35 pg 25-34 Automated erythrocyte mean corpuscular h emoglobin concentration measurement (mass/volume) 34 g/dL 32-36 Automated erythrocyte distribution width ratio 12. 9 % 10.0- 14.5 Automated blood platelet count [...] 10*3 1.0-4.0 Blood monocytes automated count (number/volume) 0. 7 10*3 0.0-1.0 Automated eosinophil count 0.0 10*3/uL 0 .0-0.3 Automated blood basophil count (count/volume) 0.0 10*3/uL 0.0-0.1 PT panel in platelet poor plasma by coag ulation assay - 07/16/18 18:00 Prothrombin time (PT) in platelet poor plasma by coagu lation assay 15.4 s 12.2-14.7 INR in platelet poor plasma or blood by coagulation as say 1.2 0.8-1.4 Activated partial thromboplastin time (a PTT) in platelet poor plasma bycoagulation assay - 07/16/18 18:00 Activated partial thromboplastin time (a PTT) in platelet poor plasma bycoagulation assay 31 s 24-35 Comprehensive metabolic panel - 07/16/18 18:00 Serum or plasma sodium measurement (moles/volume) 142 mmol/L 135-145 Serum or plasma potassium measurement (moles/volume) 3.2 mmol/L 3.6-5.0 Serum or plasma chloride measurement (moles/volume) 102 mmol/L 98-107 Carbon dioxide 24 mmol/L 21-32 Serum or plasma anion gap determination (moles/volume) 16 mmol/L 5-14 Serum or plasma urea nitrogen measurement (mass/volume ) 17 mg/dL 7-18 Serum or plasma creatinine measurement (mass/volume) 0.85 mg/dL 0.60-1.30 Serum or plasma urea nitrogen/creatinine mass ratio 20 NRG Serum or plasma creatinine measurement w ith calculation of estimated glomerular filtration rate > NRG Serum or plasma glucose measurement (mass/volume) 96 mg/dL 70-105 Serum or plasma calcium measurement (mass/volume) 9.6 mg/dL 8.5-10.1 Serum or plasma total bilirubin measurement (mass/volu me) 0.7 mg/dL 0.1-1.0 Serum or plasma alkaline phosphatase nikita surement (enzymatic activity/volume) 60 U/L 40-136 Serum or plasma aspartate aminotransfera se measurement (enzymatic activity/volume) 17 U/L 5-34 Serum or plasma alanine aminotransferase measurement (enzymatic activity/volume) 10 U/L 0-55 Serum or plasma protein measurement (mass/volume) 6.7 g/dL 6.4-8.2 Serum or plasma albumin measurement (mass/volume) 3.7 g/dL 3.2-4.5 CALCIUM CORRECTED 9.8 mg/dL 8.5-10.1 Magnesium - 07/16/18 18:00 Magnesium 2.0 mg/dL 1.8-2.4 Serum or plasma creatine kinase measurem ent (enzymatic activity/volume) - 07/16/18 18:00 Serum or plasma creatine kinase measurem ent (enzymatic activity/volume) 87 U/L 29-168 Serum or plasma creatine kinase MB measu rement (enzymatic activity/volume) - 07/16/18 18:00 Serum or plasma creatine kinase MB measu rement (enzymatic activity/volume) 4.4 ng/mL <6.6 Serum or plasma troponin i.cardiac measu rement (mass/volume) - 07/16/18 18:00 Serum or plasma troponin i.cardiac measurement (mass/v olume) 0.092 ng/mL <0.028 Serum or plasma amylase measurement (enz ymatic activity/volume) - 07/16/18 18:00 Serum or plasma amylase measurement (enzymatic activit y/volume) 34 U/L 25-125 Lipase - 07/16/18 18:00 Lipase 23 U/L 8-78 Serum or plasma lithium measurement (mol es/volume) - 07/16/18 18:00 BNP level 110.1 pg/mL <100.0 Serum or plasma carbamazepine measuremen t (mass/volume) - 07/16/18 18:00 Serum or plasma carbamazepine measurement (mass/volume ) 5.2 ug/mL 4.0-12.0 Serum or plasma thyrotropin measurement by detection limit <=0.05 miu/l (units/volume) - 07/16/18 18:00 Serum or plasma thyrotropin measurement by detection limit <=0.05 miu/l (units/volume) 2.32 u[iU]/mL 0.35-4.94 Serum or plasma acetaminophen measuremen t (mass/volume) - 07/16/18 18:00 Serum or plasma acetaminophen measurement (mass/volume ) < ug/mL 10-30 Serum or plasma ethanol measurement (mas s/volume) - 07/16/18 18:00 Serum or plasma ethanol measurement (mass/volume) < mg/dL <10 Blood lactic acid measurement (moles/vol ume) - 07/16/18 18:30 Blood lactic acid measurement (moles/volume) 1.09 mmol/L 0.50-2.00 Ammonia - 07/16/18 18:35 Ammonia 20 umol/L 11-32 Influenza virus A and B antigen detectio n - 07/16/18 18:40 FLU RESULT NEGATIVE FOR INFLUENZA A AND B ANTIGENS BY IA NRG Bacterial blood culture - 07/16/18 18:40 Bacterial blood culture NG NRG Complete urinalysis with reflex to cultu re - 07/16/18 18:51 Urine color determination DARK YELLOW N RG Urine clarity determination SLIGHTLY CLOUDY NRG Urine pH measurement by test strip 5 5-9 Specific gravity of urine by test strip 1.025 1.016-1.022 Urine protein assay by test strip, semi-quantitative 2+ NEGATIVE Urine glucose detection by automated test strip NE GATIVE NEGATIVE Erythrocytes detection in urine sediment by light micr oscopy 1+ NEGATIVE Urine ketones detection by automated test strip 2+ NEGATIVE Urine nitrite detection by test strip NEGATIVE NEGATIVE Urine total bilirubin detection by test strip 1+ NEGATIVE Urine urobilinogen measurement by automated test strip (mass/volume) 4 mg/dL NORMAL Urine leukocyte esterase detection by dipstick 1+ NEGATIVE Automated urine sediment erythrocyte cou nt by microscopy (number/high power field) RARE NRG Automated urine sediment leukocyte count by microscopy (number/high power field) RARE NRG Bacteria detection in urine sediment by light microsco py NEGATIVE NRG Squamous epithelial cells detection in u rine sediment by light microscopy 0-2 NRG Crystals detection in urine sediment by light microsco py NONE NRG Casts detection in urine sediment by light microscopy NONE NRG Mucus detection in urine sediment by light microscopy SMALL NRG Complete urinalysis with reflex to culture NO NRG Urine drug screening test - 07/16/18 18: 51 Urine phencyclidine detection by screening method NEGATIVE NEGATIVE Urine benzodiazepines detection by screening method NEGATIVE NEGATIVE Urine cocaine detection NEGATIVE NEGATI VE Urine amphetamines detection by screening method N EGATIVE NEGATIVE Urine methamphetamine detection by screening method NEGATIVE NEGATIVE Urine cannabinoids detection by screening method N EGATIVE NEGATIVE Urine opiates detection by screening method NEGATI VE NEGATIVE Urine barbiturates detection NEGATIVE N EGATIVE Screening urine tricyclic antidepressants detection NEGATIVE NEGATIVE Urine methadone detection by screening method NEGA TIVE NEGATIVE Urine oxycodone detection NEGATIVE NEGA TIVE Urine propoxyphene detection NEGATIVE N EGATIVE Capillary blood glucose measurement by g lucometer (mass/volume) - 07/16/18 18:57 Capillary blood glucose measurement by glucometer (mas s/volume) 99 mg/dL 70-110 Bacterial blood culture - 07/16/18 19:10 Bacterial blood culture NG NRG Serum or plasma troponin i.cardiac measu rement (mass/volume) - 07/17/18 00:00 Serum or plasma troponin i.cardiac measurement (mass/v olume) 0.059 ng/mL <0.028 Comprehensive metabolic panel - 07/17/18 03:45 Serum or plasma sodium measurement (moles/volume) 138 mmol/L 135-145 Serum or plasma potassium measurement (moles/volume) 3.4 mmol/L 3.6-5.0 Serum or plasma chloride measurement (moles/volume) 104 mmol/L 98-107 Carbon dioxide 22 mmol/L 21-32 Serum or plasma anion gap determination (moles/volume) 12 mmol/L 5-14 Serum or plasma urea nitrogen measurement (mass/volume ) 15 mg/dL 7-18 Serum or plasma creatinine measurement (mass/volume) 0.85 mg/dL 0.60-1.30 Serum or plasma urea nitrogen/creatinine mass ratio 18 NRG Serum or plasma creatinine measurement w ith calculation of estimated glomerular filtration rate > NRG Serum or plasma glucose measurement (mass/volume) 149 mg/dL 70-105 Serum or plasma calcium measurement (mass/volume) 8.9 mg/dL 8.5-10.1 Serum or plasma total bilirubin measurement (mass/volu me) 0.4 mg/dL 0.1-1.0 Serum or plasma alkaline phosphatase nikita surement (enzymatic activity/volume) 48 U/L 40-136 Serum or plasma aspartate aminotransfera se measurement (enzymatic activity/volume) 16 U/L 5-34 Serum or plasma alanine aminotransferase measurement (enzymatic activity/volume) 7 U/L 0-55 Serum or plasma protein measurement (mass/volume) 5.7 g/dL 6.4-8.2 Serum or plasma albumin measurement (mass/volume) 3.1 g/dL 3.2-4.5 CALCIUM CORRECTED 9.6 mg/dL 8.5-10.1 Complete blood count (CBC) with automate d white blood cell (WBC) differential - 07/17/18 04:00 Blood leukocytes automated count (number/volume) 6.9 10*3/uL 4.3-11.0 Blood erythrocytes automated count (number/volume) 3.71 10*6/uL 4.35-5.85 Venous blood hemoglobin measurement (mass/volume) 13.0 g/dL 11.5-16.0 Blood hematocrit (volume fraction) 39 % 35-52 Automated erythrocyte mean corpuscular volume 104 [foz_us] 80-99 Automated erythrocyte mean corpuscular h emoglobin (mass per erythrocyte) 35 pg 25-34 Automated erythrocyte mean corpuscular h emoglobin concentration measurement (mass/volume) 34 g/dL 32-36 Automated erythrocyte distribution width ratio 12. 7 % 10.0- 14.5 Automated blood platelet count [...] 10*3 1.0-4.0 Blood monocytes automated count (number/volume) 0. 7 10*3 0.0-1.0 Automated eosinophil count 0.0 10*3/uL 0 .0-0.3 Automated blood basophil count (count/volume) 0.0 10*3/uL 0.0-0.1 Complete urinalysis with reflex to cultu re - 11/17/18 15:27 Urine color determination YELLOW NRG Urine clarity determination CLEAR NR G Urine pH measurement by test strip 6 5-9 Specific gravity of urine by test strip 1.020 1.016-1.022 Urine protein assay by test strip, semi-quantitative 1+ NEGATIVE Urine glucose detection by automated test strip NE GATIVE NEGATIVE Erythrocytes detection in urine sediment by light micr oscopy NEGATIVE NEGATIVE Urine ketones detection by automated test strip NE GATIVE NEGATIVE Urine nitrite detection by test strip NEGATIVE NEGATIVE Urine total bilirubin detection by test strip NEGA TIVE NEGATIVE Urine urobilinogen measurement by automated test strip (mass/volume) NORMAL NORMAL Urine leukocyte esterase detection by dipstick 2+ NEGATIVE Automated urine sediment erythrocyte cou nt by microscopy (number/high power field) NONE NRG Automated urine sediment leukocyte count by microscopy (number/high power field) [HPF] NRG Bacteria detection in urine sediment by light microsco py TRACE NRG Squamous epithelial cells detection in u rine sediment by light microscopy 5-10 NRG Crystals detection in urine sediment by light microsco py NONE NRG Casts detection in urine sediment by light microscopy NONE NRG Mucus detection in urine sediment by light microscopy SMALL NRG Complete urinalysis with reflex to culture YES NRG Bacterial urine culture - 11/17/18 15:27 Bacterial urine culture NG NRG Complete blood count (CBC) with automate d white blood cell (WBC) differential - 11/29/18 13:44 Blood leukocytes automated count (number/volume) 4.6 10*3/uL 4.3-11.0 Blood erythrocytes automated count (number/volume) 3.90 10*6/uL 4.35-5.85 Venous blood hemoglobin measurement (mass/volume) 12.5 g/dL 11.5-16.0 Blood hematocrit (volume fraction) 40 % 35-52 Automated erythrocyte mean corpuscular volume 101 [foz_us] 80-99 Automated erythrocyte mean corpuscular h emoglobin (mass per erythrocyte) 32 pg 25-34 Automated erythrocyte mean corpuscular h emoglobin concentration measurement (mass/volume) 32 g/dL 32-36 Automated erythrocyte distribution width ratio 11. 7 % 10.0- 14.5 Automated blood platelet count (count/volume) 171 10*3/uL 130-400 Automated blood platelet mean volume measurement 9.4 [foz_us] 7.4-10.4 Automated blood neutrophils/100 leukocytes 67 % 42-75 Automated blood lymphocytes/100 leukocytes 16 % 12-44 Blood monocytes/100 leukocytes 16 % 0-12 Automated blood eosinophils/100 leukocytes 1 % 0-10 Automated blood basophils/100 leukocytes 0 % 0-10 Blood neutrophils automated count (number/volume) 3.1 10*3 1.8-7.8 Blood lymphocytes automated count (number/volume) 0.8 10*3 1.0-4.0 Blood monocytes automated count (number/volume) 0. 7 10*3 0.0-1.0 Automated eosinophil count 0.0 10*3/uL 0 .0-0.3 Automated blood basophil count (count/volume) 0.0 10*3/uL 0.0-0.1 Comprehensive metabolic panel - 11/29/18 13:44 Serum or plasma sodium measurement (moles/volume) 136 mmol/L 135-145 Serum or plasma potassium measurement (moles/volume) 4.1 mmol/L 3.6-5.0 Serum or plasma chloride measurement (moles/volume) 102 mmol/L 98-107 Carbon dioxide 25 mmol/L 21-32 Serum or plasma anion gap determination (moles/volume) 9 mmol/L 5-14 Serum or plasma urea nitrogen measurement (mass/volume ) 14 mg/dL 7-18 Serum or plasma creatinine measurement (mass/volume) 0.83 mg/dL 0.60-1.30 Serum or plasma urea nitrogen/creatinine mass ratio 17 NRG Serum or plasma creatinine measurement w ith calculation of estimated glomerular filtration rate > NRG Serum or plasma glucose measurement (mass/volume) 144 mg/dL 70-105 Serum or plasma calcium measurement (mass/volume) 9.2 mg/dL 8.5-10.1 Serum or plasma total bilirubin measurement (mass/volu me) 0.2 mg/dL 0.1-1.0 Serum or plasma alkaline phosphatase nikita surement (enzymatic activity/volume) 88 U/L 40-136 Serum or plasma aspartate aminotransfera se measurement (enzymatic activity/volume) 16 U/L 5-34 Serum or plasma alanine aminotransferase measurement (enzymatic activity/volume) 9 U/L 0-55 Serum or plasma protein measurement (mass/volume) 7.2 g/dL 6.4-8.2 Serum or plasma albumin measurement (mass/volume) 3.5 g/dL 3.2-4.5 CALCIUM CORRECTED 9.6 mg/dL 8.5-10.1 Bacterial urine culture - 06/28/19 18:15 Bacterial urine culture NG NRG Encounters ACCT No. Visit Date/Time Discharge Status Pt. Type Provider Facility Loc./Unit Complaint [id number] 06/28/2019 19:38:00 23:59:59 CLS Outpatient CAT RAYMUNDO MD [facility] CVS I10 [id number] 01/16/2019 15:14:00 23:59:59 CLS Outpatient CAT RAYMUNDO MD [facility] RAD PAST FALL [id number] 12/31/2018 07:42:00 09:43:00 DIS Emergency SUE BRITO DO [facility] ER FALL [id number] 11/29/2018 13:33:00 15:03:00 DIS Emergency NIKKY SEPULVEDA MD [facility] ER FALL [id number] 11/17/2018 14:51:00 17:09:00 DIS Emergency SCOTT DILLON APRN [facility] ER FALL [id number] 11/12/2018 18:32:00 20:19:00 DIS Emergency SCOTT DILLON APRN [facility] ER FALL [id number] 10/18/2018 16:00:00 17:53:00 DIS Emergency SCOTT DILLON APRN [facility] ER FALL [id number] 08/29/2018 10:58:00 23:59:59 CLS Outpatient LARRY MCPHERSON APRN [facility] WOUNDCARE [id number] 08/22/2018 16:03:00 23:59:59 CLS Outpatient LARRY MCPHERSON APRN [facility] WOUNDCARE [id number] 08/15/2018 11:02:00 23:59:59 CLS Outpatient LARRY MCPHERSON CON[employer] S[employer] CONSULTANT [facility] WOUNDCARE [id number] 08/08/2018 11:03:00 23:59:59 CLS Outpatient LARRY MCPHERSON CONSTRUCTION SAFETY CONSULTANT [facility] WOUNDCARE [id number] 08/06/2018 12:45:00 14:40:00 DIS Emergency SCOTT DILLON [employer]STRU[employer] S[employer]Y CONSULTANT [facility] ER FALL [id number] 08/01/2018 14:34:00 23:59:59 CLS Outpatient NATO AGUILAR MD [facility] WOUNDCARE [id number] 07/25/2018 08:17:00 23:59:59 CLS Outpatient LARRY MCPHERSON APRN [facility] WOUNDCARE [id number] 07/16/2018 19:25:00 14:04:00 DIS Inpatient CATALINO JUDD, LETICIA Morales [facility] 4TH GENERALIZED WEAKNESS; D ECUBITUS ULCERS-BUTTOCKS [id number] 07/28/2017 09:46:00 23:59:59 CLS Outpatient CAT RAYMUNDO MD [facility] RAD SCREENING [id number] 04/14/2017 11:06:00 23:59:59 CLS Outpatient ARI PARRA [facility] RAD R07.82, M25.551 [id number] 08/09/2016 07:52:00 23:59:59 CLS Outpatient LARRY MCPHERSON APRN [facility] RAD R92.8 [id number] 07/27/2016 07:55:00 23:59:59 CLS Outpatient CAT RAYMUNDO MD [facility] RAD SCREENING [id number] 11/11/2015 07:19:00 23:59:59 CLS Outpatient CAT RAYMUNDO MD [facility] LAB THROMBOCYTOPENIA [id number] 07/24/2015 08:41:00 016 23:59:59 CLS Outpatient LARRY MCPHERSON APRN [facility] RAD ABNORMAL MAMMO [id number] 07/14/2015 10:19:00 016 23:59:59 CLS Outpatient LARRY MCPHERSON APRN [facility] RAD SCREENING [id number] 04/15/2015 15:31:00 015 23:59:59 CLS Outpatient LARRY MCPHERSON APRN [facility] RAD POST FALL AT [facility] [id number] 07/10/2014 07:01:00 015 23:59:59 CLS Outpatient CAT RAYMUNDO MD [facility] RAD SCREENING [id number] 07/09/2013 08:24:00 014 23:59:59 CLS Outpatient LARRY MCPHERSON APRN [facility] RAD ROUTINE [id number] 06/29/2019 20:59:00 Document Registration [id number] 07/06/2012 06:39:00 Document Registration [id number] 07/01/2011 07:04:00 Document Registration [id number] 06/29/2010 06:57:00 Document Registration [id number] 11/17/2009 09:18:00 Document Registration
[2019-08-13 14:38] LABS: BILIRUBIN,URINE NEGATIVE (NEGATIVE); CLARITY,URINE CLEAR; COLOR,URINE YELLOW; GLUCOSE, URINE (UA) NEGATIVE (NEGATIVE); KETONES,URINE NEGATIVE (NEGATIVE); LEUKOCYTE ESTERASE ,URINE NEGATIVE (NEGATIVE); NITRITE,URINE NEGATIVE (NEGATIVE); PROTEIN,URINE NEGATIVE (NEGATIVE)
[2019-08-13 14:45] LABS: BACTERIA,URINE NEGATIVE /HPF; SQUAMOUS EPITHELIAL CELL,UR 0-2 /HPF
--- NOTE | 2019-08-13 15:09 | Diagnostic Imaging Report ---
PATIENT HISTORY: Unwitnessed fall. TECHNIQUE: Single frontal view of the chest. COMPARISON: 12/31/2018. FINDINGS: The lung volumes are normal. No focal consolidation is seen. No large pleural effusion or pneumothorax is seen. The cardiac silhouette is mildly large. There is aortic atherosclerosis. No acute osseous abnormality is seen. There is diffuse osteopenia with chronic rotator cuff injuries bilaterally. IMPRESSION: Mild cardiomegaly with no acute pulmonary abnormality seen. Dictated by: Dictated on workstation # [id number]
--- NOTE | 2019-08-13 15:10 | Diagnostic Imaging Report ---
HISTORY: Unwitnessed fall. TECHNIQUE: Frontal view the pelvis. Frontal and lateral views of the bilateral hips. COMPARISON: None. FINDINGS: There is diffuse osteopenia. There are moderate degenerative changes in the bilateral hip joints and in the bilateral sacroiliac joints. Advanced degenerative changes are seen in the lower lumbar spine. No acute fracture is seen in the pelvis or the bilateral hips. The femoral heads are well-seated in the acetabula bilaterally. There is calcific atherosclerosis. IMPRESSION: Degenerative changes in the bilateral hips with no acute fracture seen. Dictated by: Dictated on workstation # [id number]
--- NOTE | 2019-08-13 15:11 | Diagnostic Imaging Report ---
INDICATION: Fall, pain. EXAMINATION: Left hand, 3 views, on 08/13/2019. FINDINGS: Diffuse degenerative findings are seen throughout the interphalangeal joint spaces of all digits. There is a more focal irregularity questioned along the proximal aspect of the distal 4th phalanx. On the lateral view, it is unclear if there is a linear avulsion fracture in this region as the 3rd and 4th phalanges are superimposed upon one another. Perhaps a repeat lateral view of the finger in question could further characterize as clinically indicated. No dislocations or fractures are otherwise noted. IMPRESSION: Diffuse degenerative disease with a fracture at the distal 4th phalanx difficult to exclude, see above discussion. Correlate with site of pain. Dictated by: Dictated on workstation # [id number]
--- NOTE | 2019-08-13 15:33 | Diagnostic Imaging Report ---
INDICATION: Trauma with head, neck, and facial pain. TECHNIQUE: Multiple contiguous axial images were obtained through the head, neck, and facial bones without the use of intravenous contrast. Sagittal and coronal reformations through the cervical spine and facial bones were also performed. Auto Exposure Controls were utilized during the CT exam to meet ALARA standards for radiation dose reduction. COMPARISON: CT brain and C-spine were compared to 12/31/2018. CT brain findings: There are diffuse atrophic changes. There were no subdural or epidural collections. There are mild low-density changes in the deep white matter, compatible with chronic ischemic change. There is no acute-appearing intracranial finding. Calvarial windows show no fracture. There is overlying left frontal scalp swelling and/or hematoma. CT cervical spine findings: There was no evidence of cervical spine fracture. There are degenerative findings in the cervical spine, most prominent at C5-C6 and C6-C7. There is diffuse facet degenerative change. There are vascular calcifications in the carotid bifurcations. CT maxillofacial findings: There is left frontal scalp swelling. There is no evidence of facial fracture. The sinuses are well aerated except for some minimal mucosal thickening in the right frontal sinus. There was no intraorbital hematoma. IMPRESSION: 1. CT brain shows atrophic changes with mild chronic changes in deep white matter. There is no acute intracranial hemorrhage or acute intracranial finding. A small left frontal scalp hematoma is noted. 2. CT cervical spine shows degenerative findings as described above with no acute fracture or subluxation. 3. CT maxillofacial demonstrates no evidence of facial fracture or intraorbital hematoma. Dictated by: Dictated on workstation # [id number]
--- NOTE | 2019-08-13 15:34 | Diagnostic Imaging Report ---
PROCEDURE: CT thoracic and lumbar spine without contrast. TECHNIQUE: Multiple contiguous axial images were obtained through the thoracic and lumbar spine without the use of intravenous contrast. Sagittal and coronal reformations were then performed. All CT scans use one or more of the following dose optimizing techniques: automated exposure control, MA and/or KvP adjustment based on a patient size and exam type, or iterative reconstruction. INDICATION: Fall. FINDINGS: There is normal thoracic kyphotic curvature and lumbar lordotic curvature. There is mild anterolisthesis of L3 on L4. Vertebral body heights are maintained. No acute compression fracture is seen. There is diffuse thoracic and lumbar spondylosis with variable disc space narrowing and marginal spurring. Multilevel facet arthropathy is noted. There is vacuum disc at multiple levels. Paraspinous tissues are unremarkable. No paraspinous hematoma is identified. Aorta is heavily calcified but nonaneurysmal. IMPRESSION: Thoracolumbar spondylosis. No acute fracture is detected. Dictated by: Dictated on workstation # [id number]
--- NOTE | 2019-08-13 15:50 | NUR ---
Called and updated [facility] on patients pending dismissal.
[2019-08-13 16:12] VITALS: BP 125/79
== END 2019-08-13 16:12 ==
LOC: EDUNIT# 14:06 → ER 14:07
DX: S06.9X9A Unspecified intracranial injury with loss of consciousness of unspecified duration, initial encounter (principal); S00.83XA Contusion of other part of head, initial encounter; S16.1XXA Strain of muscle, fascia and tendon at neck level, initial encounter; S61.412A Laceration without foreign body of left hand, initial encounter; I10 Essential (primary) hypertension; Z87.891 Personal history of nicotine dependence; W19.XXXA Unspecified fall, initial encounter; Y92.129 Unspecified place in nursing home as the place of occurrence of the external cause
CPT/HCPCS: 70450; 70486; 71045; 72125; 72128; 72131; 73130; 73523; 81000; 93041

== ENCOUNTER 2020-05-03 10:49 | Emergency (ER) | payer MEDICARE, MEDICAID ==
[~2020-05-03] VITALS: Ht 162.5 cm; Wt 70.3 kg
[~2020-05-03 10:49] MED LIST changes: +AMLO-250 PO; -AMLO5TAB9 PO
--- NOTE | 2020-05-03 11:02 | ED Fall/Injury ---
General Chief Complaint: Trauma-Non Activation Stated Complaint: FALL Nursing Triage Note: FALL Source: patient, EMS Exam Limitations: no limitations History of Present Illness Date Seen by Provider: May 03, 2020 Time Seen by Provider: 10:58 Initial Comments 74-year-old female presents to the emergency department today with a chief complaint of mechanical fall at the skilled nursing. Patient reportedly had a mechanical fall and fell backwards striking her head on a tile floor. No loss of consciousness was reported. The patient is complaining of a little bit of ri ght elbow pain. She denies pain in her neck, chest, abdomen, hips, extremities. No recent illnesses. All other review of systems reviewed and negative except as stated. Occurred: just prior to arrival Severity: mild Injuries/Pain Location: head, upper extremity (right elbow) Context: lost balance Loss of Consciousness: no loss of consciousness Associated Symptoms (Fall): Denies Symptoms Allergies and Home Medications Allergies Coded Allergies: No Known Drug Allergies (Verified , 07/18/08) Home Medications Amlodipine Besylate 5 Mg Tablet, 5 MG PO DAILY, (Reported) LAST FILLED #30 05-19-18 Atenolol 50 Mg Tablet, 50 MG PO BID, (Reported) LAST FILLED #90 05-08-18 Carbamazepine 200 Mg Tablet, 200 MG PO BID, (Reported) LAST FILLED #60 06-12-18 Loperamide HCl 2 Mg Capsule, 2 MG PO UD PRN for DIARRHEA, (Reported) Patient Home Medication List Home Medication List Reviewed: Yes Review of Systems Review of Systems Constitutional: see HPI Eyes: No Symptoms Reported Ears, Nose, Mouth, Throat: no symptoms reported Respiratory: no symptoms reported Cardiovascular: no symptoms reported Gastrointestinal: no symptoms reported Genitourinary: no symptoms reported Musculoskeletal: joint pain (right elbow) Skin: no symptoms reported Psychiatric/Neurological: No Symptoms Reported, Other (reportedly the patient h as some degree of dementia) All Other Systems Reviewed Negative Unless Noted: Yes Past Hvmkzch-Ywbahl-Xvfdia Hx Patient Social History Alcohol Use: Occasionally Uses Smoking Status: Former Smoker Type Used: Cigarettes 2nd Hand Smoke Exposure: No Recent Hopitalizations: No Immunizations Up To Date Tetanus Booster (TDap): Unknown Seasonal Allergies Seasonal Allergies: No Past Medical History Surgeries: Yes (SURGERY FOR TRIGEMINAL NEURALGIA) Tonsillectomy Respiratory: No (FORMER SMOKER) Cardiac: Yes High Cholesterol, Hypertension Neurological: Yes (RIGHT TRIGMENINAL NEURALGIA) Dementia Reproductive Disorders: No Sexually Transmitted Disease: No Genitourinary: No Gastrointestinal: No Musculoskeletal: Yes (POOR BALANCE, FALLS, GENERALIZED WEAKNESS) Endocrine: No HEENT: Yes (RIGHT TRIGEMINAL NEURALGIA) Cancer: No Psychosocial: No Integumentary: No Blood Disorders: No Physical Exam Vital Signs Vital Signs - First Documented 05/03/20 10:50 Temp 36.7 Pulse 77 Resp 20 B/P (MAP) 94/56 (69) Pulse Ox 96 O2 Delivery Room Air Capillary Refill : Height, Weight, BMI Height: 5'4.00" Weight: 150lbs. 5.0oz. 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 Complains of some right elbow pain. Did strike her head on the tile floor. No loss of consciousness. Patient is awake alert and oriented to person place and time. Patient will undergo CT scan of the head without contrast to rule out intracranial hemorrhage. 1149 CT shows no evidence of acute intracranial abnormality Departure Impression Primary Impression: Concussion Qualified Codes: S06.0X0A - Concussion without loss of consciousness, initial encounter Disposition: HOME, SELF-CARE Condition: Stable Departure-Patient Inst. Decision time for Depature: 11:51 Referrals: CAT RAYMUNDO MD (PCP/Family) Primary Care Physician Patient Instructions: Concussion in Adults Add. Discharge Instructions: Drink plenty of fluids to stay well-hydrated. Take Tylenol as needed for headache every 4 hours. Return to the emergency room for any new, concerning or emergent symptoms such as severe headache vomiting or other concerns. VAIBHAV GRAY MD May 03, 2020 11:02
--- NOTE | 2020-05-03 11:42 | Diagnostic Imaging Report ---
CLINICAL INDICATION: Patient fell and hit head today. EXAM: Axial CT scan of the brain without IV contrast with coronal and sagittal reformatted images. Auto Exposure Controls were utilized during the CT exam to meet ALARA standards for radiation dose reduction. COMPARISON: Head CT without contrast dated 08/13/2019. FINDINGS: There is no evidence of acute cerebral infarct, intracranial hemorrhage, or gross mass effect. There is diffuse brain parenchymal volume loss seen which is not significantly changed. There are patchy and confluent areas of low-attenuation white matter changes involving both cerebral hemispheres, likely representing chronic small vessel ischemic disease and leukoaraiosis. There is normal gonzalez-white matter distinction. There is no significant midline shift or herniation. There is no evidence of hydrocephalus. The basal cisterns are unremarkable. The skull, extracranial soft tissue, and orbits are unremarkable. There is small amount of mucosal thickening in the frontal sinus. Temporal bones show no significant abnormality. IMPRESSION: 1: There is no interval acute intracranial process. There is no intracranial hemorrhage or skull fracture. 2: Again seen diffuse chronic small vessel ischemic disease and leukoaraiosis. There is diffuse brain parenchymal volume loss. Dictated by: Dictated on workstation # [id number]
[2020-05-03] MEDS ORDERED: ACETAMINOPHEN 325 MG TABLET PO ONE (12:15)
--- NOTE | 2020-05-03 12:23 | NUR ---
SPOKE WITH ERIBERTO AT [facility], NOTIFIED HER THAT PT IS READY FOR PICKUP.
[2020-05-03 13:08] VITALS: BP 121/68
== END 2020-05-03 13:08 | disposition home or self-care (01) ==
LOC: EDUNIT# 10:49 → ER 10:50
DX: S06.0X0A Concussion without loss of consciousness, initial encounter (principal); I10 Essential (primary) hypertension; Z87.891 Personal history of nicotine dependence; W01.198A Fall on same level from slipping, tripping and stumbling with subsequent striking against other object, initial encounter
CPT/HCPCS: 70450

== ENCOUNTER → 2020-05-29 | Outpatient (CLI) | payer MEDICARE, MEDICAID ==
[2020-05-29 22:42] LABS: BILIRUBIN,URINE NEGATIVE (NEGATIVE); CLARITY,URINE SL CLOUDY; COLOR,URINE YELLOW; GLUCOSE, URINE (UA) NEGATIVE (NEGATIVE); KETONES,URINE NEGATIVE (NEGATIVE); LEUKOCYTE ESTERASE ,URINE NEGATIVE (NEGATIVE); NITRITE,URINE NEGATIVE (NEGATIVE); PH,URINE 7.5 (5-9); PROTEIN,URINE NEGATIVE (NEGATIVE)
[2020-05-29 22:48] LABS: BACTERIA,URINE LARGE /HPF; WBC,URINE 0-2 /HPF
== END ==
LOC: CVS 22:22
PROVIDERS: ATTEND Internal Medicine
DX: Z01.89 Encounter for other specified special examinations (principal)
CPT/HCPCS: 81000; 87077; 87088; 87186

== ENCOUNTER → 2020-06-08 | Outpatient (CLI) | payer MEDICARE, MEDICAID ==
[2020-06-08 09:26] LABS: BASOPHILS % (AUTO) 0 % (0-10); EOSINOPHILS # (AUTO) 0.1 10^3/uL (0.0-0.3); EOSINOPHILS % (AUTO) 1 % (0-10); HEMATOCRIT 43 % (35-52); HEMOGLOBIN 13.5 g/dL (11.5-16.0); LYMPHOCYTES % (AUTO) 17 % (12-44); MEAN CORPUSCULAR HEMOGLOBIN 32 pg (25-34); MEAN CORPUSCULAR HGB CONC 31 g/dL (32-36); MEAN CORPUSCULAR VOLUME 103 fL (80-99); MEAN PLATELET VOLUME 10.2 fL (9.0-12.2); MONOCYTES # (AUTO) 0.9 10^3/uL (0.0-1.0); MONOCYTES % (AUTO) 14 % (0-12); NEUTROPHILS # (AUTO) 4.1 10^3/uL (1.8-7.8); NEUTROPHILS % (AUTO) 67 % (42-75); PLATELET COUNT 148 10^3/uL (130-400); WHITE BLOOD COUNT 6.1 10^3/uL (4.3-11.0)
[2020-06-08 09:46] LABS: ALBUMIN 3.6 GM/DL (3.2-4.5)
[2020-06-08 09:48] LABS: CALCIUM 9.2 MG/DL (8.5-10.1)
[2020-06-08 09:49] LABS: TOTAL PROTEIN 7.3 GM/DL (6.4-8.2)
[2020-06-08 09:51] LABS: BILIRUBIN,TOTAL 0.3 MG/DL (0.1-1.0)
[2020-06-08 09:52] LABS: CREATININE SERUM 0.91 MG/DL (0.60-1.30)
== END ==
LOC: CVS 07:00
PROVIDERS: ATTEND Internal Medicine
DX: Z01.89 Encounter for other specified special examinations (principal)
CPT/HCPCS: 80053; 85025; 87804

== ENCOUNTER 2020-09-04 20:00 | Emergency (ER) | payer MEDICARE, MEDICAID ==
--- NOTE | 2020-09-04 20:22 | ED Fall/Injury ---
General Stated Complaint: FALL Source: patient, EMS Exam Limitations: no limitations History of Present Illness Date Seen by Provider: September 04, 2020 Time Seen by Provider: 19:50 Initial Comments Patient reports ER by EMS from home at [facility] with chief complaint she had a unwitnessed fall was not down for more than a few minutes per staff. Patient says she just fell backwards on her butt think she may have hit her head and may have passed out but she has answer the question differently for staff and EMS. She has baseline dementia and appears to be at her baseline according to staff report. She is denying any pain anywhere at this time. She did take some Tylenol she said before her fall. No mention of being on blood thinners per her records. Allergies and Home Medications Allergies Coded Allergies: No Known Drug Allergies (Verified , 07/18/08) Home Medications Amlodipine Besylate 5 Mg Tablet, 5 MG PO DAILY, (Reported) LAST FILLED #30 05-19-18 Atenolol 50 Mg Tablet, 50 MG PO BID, (Reported) LAST FILLED #90 05-08-18 Carbamazepine 200 Mg Tablet, 200 MG PO BID, (Reported) LAST FILLED #60 06-12-18 Loperamide HCl 2 Mg Capsule, 2 MG PO UD PRN for DIARRHEA, (Reported) Patient Home Medication List Home Medication List Reviewed: Yes Review of Systems Review of Systems Constitutional: No chills, No diaphoresis Eyes: Denies Blindness, Denies Blurred Vision Ears, Nose, Mouth, Throat: denies ear pain, denies nose pain Respiratory: No cough, No short of breath Cardiovascular: No edema, No syncope Gastrointestinal: No abdominal pain, No nausea, No vomiting Genitourinary: No discharge, No dysuria Musculoskeletal: No back pain, No joint pain All Other Systems Reviewed Negative Unless Noted: Yes Past Cwjwrim-Tjpokg-Tjawpd Hx Patient Social History Alcohol Use: Denies Use Smoking Status: Never a Smoker Type Used: Cigarettes 2nd Hand Smoke Exposure: No Recent Hopitalizations: No Immunizations Up To Date Tetanus Booster (TDap): Unknown Seasonal Allergies Seasonal Allergies: No Past Medical History Surgeries: Yes (SURGERY FOR TRIGEMINAL NEURALGIA) Tonsillectomy Respiratory: No (FORMER SMOKER) Cardiac: Yes High Cholesterol, Hypertension Neurological: Yes (RIGHT TRIGMENINAL NEURALGIA) Dementia Reproductive Disorders: No Sexually Transmitted Disease: No Genitourinary: No Gastrointestinal: No Musculoskeletal: Yes (POOR BALANCE, FALLS, GENERALIZED WEAKNESS) Endocrine: No HEENT: Yes (RIGHT TRIGEMINAL NEURALGIA) Cancer: No Psychosocial: No Integumentary: No Blood Disorders: No Physical Exam Vital Signs Vital Signs - First Documented Capillary Refill : Height, Weight, BMI Height: 5'4.00" Weight: 150lbs. 5.0oz. 68.227342en; 26.00 BMI Method:Stated General Appearance: WD/WN, no apparent distress HEENT: PERRL/EOMI, normal ENT inspection (Negative for campbell sign raccoon eyes or tenderness in her scalp head or neck), TMs normal, pharynx normal Neck: non-tender, full range of motion, supple, normal inspection Cardiovascular: normal peripheral pulses, regular rate, rhythm Respiratory: no respiratory distress, no accessory muscle use Peripheral Pulses: 2+ Dorsalis Pedis (R), 2+ Left Dors-Pedis (L) Gastrointestinal: non tender, soft Back: normal inspection, vertebral tenderness (Lower thoracic upper lumbar tenderness midline without deformity, ecchymosis abrasion or deformity.) Extremities: non-tender, normal inspection Neurologic/Psychiatric: alert, normal mood/affect, other (Oriented to person and place) [place] Coma Score Best Eye Response: (4) Open Spontaneously Best Verbal Response: (5) Oriented Best Motor Response: (6) Obeys Commands [place] Total: 15 Progress/Results/Core Measures Results/Orders My Orders Orders - NIKKY SEPULVEDA Ct Head/Cervical Spine Wo (09/04/20 20:05) Ct Thoracic/Lumbar Spine Wo (09/04/20 20:05) Vital Signs/I&O 09/04/20 09/04/20 20:11 20:11 Temp 36.3 Pulse 66 Resp 16 B/P (MAP) 140/59 (86) Pulse Ox 97 O2 Delivery Room Air Progress Progress Note : Time: 20:09 Progress Note Plan to CT the head spine cervical to lumbar. She does not want anything for pain. Diagnostic Imaging Diagonstic Imaging: CT Plain Films/CT/US/NM/MRI: c-spine, head Comments NAME: LAURA MCCRACKEN [facility] REC#: [id number] PT STATUS: REG ER : 1945 PHYSICIAN: NIKKY SEPULVEDA MD ADMIT DATE: 09/04/20/ER Draft Date of Exam:09/04/20 CT HEAD/CERVICAL SPINE WO EXAMINATION: CT head and CT cervical spine without contrast. TECHNIQUE: Multiple contiguous axial images were obtained through the brain and cervical spine without the use of intravenous contrast. Sagittal and coronal reformations through the cervical spine were then performed. All CT scans use one or more of the following dose optimizing techniques: automated exposure control, MA and/or KvP adjustment based on patient size and exam type or iterative reconstruction. HISTORY: Trauma. COMPARISON: None available. FINDINGS: The gonzalez-white matter differentiation is normal. No mass effect or midline shift. There is age related cerebral atrophy with ex vacuo dilation of the ventricles. Basilar cisterns are patent. There are no intra- or extra-axial fluid collections. There is no intracranial hemorrhage. The orbits are normal. Paranasal sinuses are normal. Mastoid air cells are clear. No soft tissue abnormality is seen. No osseus lesions or fractures are seen. There is mild anterolisthesis of C3 on C4 related to degenerative disc disease. No fracture is seen. Vertebral body heights are normal. The craniocervical junction is normal. There is moderate degenerative disease in the cervical spine. There is degenerative fusion of the left C3-C4 facets. There is mild spinal canal stenosis at C5-C6 and C6-C7. There are carotid bifurcation calcifications. Limited views of the superior thorax are normal. IMPRESSION: 1. No acute intracranial abnormality. 2. No cervical spine fracture. Dictated on workstation # [id number] Dict: 09/04/202035 Trans: 09/04/202040 [facility] [id number] Interpreted by: CAT MCPHERSON MD Electronically signed by: Reviewed: Reviewed by De Diagonstic Imaging: CT Plain Films/CT/US/NM/MRI: other (Thoracolumbar spine) Comments [facility] [place] NAME: LAURA MCCRACKEN [facility] REC#: [id number] PT STATUS: REG ER : 1945 PHYSICIAN: NIKKY SEPULVEDA MD ADMIT DATE: 09/04/20/ER Draft Date of Exam:09/04/20 CT THORACIC/LUMBAR SPINE WO EXAMINATION: CT thoracic and lumbar spine without contrast. TECHNIQUE: Multiple contiguous axial images were obtained through the thoracic and lumbar spine without the use of intravenous contrast. Sagittal and coronal reformations were then performed. All CT scans use one or more of the following dose optimizing techniques: automated exposure control, MA and/or KvP adjustment based on patient size and exam type or iterative reconstruction. HISTORY: Trauma. COMPARISON: 08/13/2019. FINDINGS: There is mild anterolisthesis of L3 on L4 due to facet arthropathy. Vertebral body heights are normal and no fracture is seen. There is severe facet disease in the lumbar spine. There is extensive degenerative disc disease, most pronounced at L5-S1, with vacuum disc phenomenon throughout the thoracic and lumbar spine. There is some degree of spinal canal stenosis at L3-L4 and L4-L5. Limited views of the soft tissues show no abnormality. The aorta is normal. IMPRESSION: No thoracic or lumbar spine fracture. Dictated on workstation # [id number] Dict: 09/04/202050 Trans: 09/04/202055 [facility] [id number] Interpreted by: CAT MCPHERSON MD Electronically signed by: Reviewed: Reviewed by Me Departure Impression Primary Impression: Fall Qualified Codes: W19.XXXA - Unspecified fall, initial encounter Additional Impression: Acute thoracic back pain Qualified Codes: M54.6 - Pain in thoracic spine Disposition: 01 HOME, SELF-CARE Condition: Stable Departure-Patient Inst. Decision time for Depature: 21:03 Referrals: CAT RAYMUNDO MD (PCP/Family) Primary Care Physician Patient Instructions: Acute Pain, Adult Add. Discharge Instructions: Drink plenty of fluids. Tylenol 1000 mg every 8 hours as necessary for pain. Topical creams such as icy hot, Biofreeze, capsaicin oil or other similar topical creams as necessary for back pain. Heating pads can be helpful for back pain. If you are setting significant symptoms at 1 week out then follow-up with your primary care doctor. NIKKY SEPULVEDA September 04, 2020 20:22
--- NOTE | 2020-09-04 20:41 | Diagnostic Imaging Report ---
EXAMINATION: CT head and CT cervical spine without contrast. TECHNIQUE: Multiple contiguous axial images were obtained through the brain and cervical spine without the use of intravenous contrast. Sagittal and coronal reformations through the cervical spine were then performed. All CT scans use one or more of the following dose optimizing techniques: automated exposure control, MA and/or KvP adjustment based on patient size and exam type or iterative reconstruction. HISTORY: Trauma. COMPARISON: None available. FINDINGS: The gonzalez-white matter differentiation is normal. No mass effect or midline shift. There is age related cerebral atrophy with ex vacuo dilation of the ventricles. Basilar cisterns are patent. There are no intra- or extra-axial fluid collections. There is no intracranial hemorrhage. The orbits are normal. Paranasal sinuses are normal. Mastoid air cells are clear. No soft tissue abnormality is seen. No osseus lesions or fractures are seen. There is mild anterolisthesis of C3 on C4 related to degenerative disc disease. No fracture is seen. Vertebral body heights are normal. The craniocervical junction is normal. There is moderate degenerative disease in the cervical spine. There is degenerative fusion of the left C3-C4 facets. There is mild spinal canal stenosis at C5-C6 and C6-C7. There are carotid bifurcation calcifications. Limited views of the superior thorax are normal. IMPRESSION: 1. No acute intracranial abnormality. 2. No cervical spine fracture. Dictated by: Dictated on workstation # [id number]
--- NOTE | 2020-09-04 20:56 | Diagnostic Imaging Report ---
EXAMINATION: CT thoracic and lumbar spine without contrast. TECHNIQUE: Multiple contiguous axial images were obtained through the thoracic and lumbar spine without the use of intravenous contrast. Sagittal and coronal reformations were then performed. All CT scans use one or more of the following dose optimizing techniques: automated exposure control, MA and/or KvP adjustment based on patient size and exam type or iterative reconstruction. HISTORY: Trauma. COMPARISON: 08/13/2019. FINDINGS: There is mild anterolisthesis of L3 on L4 due to facet arthropathy. Vertebral body heights are normal and no fracture is seen. There is severe facet disease in the lumbar spine. There is extensive degenerative disc disease, most pronounced at L5-S1, with vacuum disc phenomenon throughout the thoracic and lumbar spine. There is some degree of spinal canal stenosis at L3-L4 and L4-L5. Limited views of the soft tissues show no abnormality. The aorta is normal. IMPRESSION: No thoracic or lumbar spine fracture. Dictated by: Dictated on workstation # [id number]
[2020-09-04 22:09] VITALS: BP 138/61
== END 2020-09-04 22:09 | disposition home or self-care (01) ==
LOC: EDUNIT# 20:03 → ER 20:05
DX: M54.6 Pain in thoracic spine (principal); M54.5 Low back pain; I10 Essential (primary) hypertension; F03.90 Unspecified dementia, unspecified severity, without behavioral disturbance, psychotic disturbance, mood disturbance, and anxiety; Z87.891 Personal history of nicotine dependence; W19.XXXA Unspecified fall, initial encounter
CPT/HCPCS: 70450; 72125; 72128; 72131

== ENCOUNTER 2021-01-05 06:47 | Emergency (ER) | payer MEDICARE, MEDICAID ==
[~2021-01-05] VITALS: Ht 160 cm; Wt 63.0 kg
--- NOTE | 2021-01-05 07:05 | ED Fall/Injury ---
General Chief Complaint: Trauma-Non Activation Stated Complaint: FALL / LOWER BACK PAIN Nursing Triage Note: WITNESS FALL FROM STANDING, NO LOSS OF CONSCIOUSNESS. COMPLAINT OF BACK PAIN. Source: patient Exam Limitations: no limitations History of Present Illness Date Seen by Provider: Jan 05, 2021 Time Seen by Provider: 06:45 Initial Comments Patient to the ER by EMS from [facility], [place] with chief complaint of a fall that was witnessed by staff stating she just fell backwards onto her bottom not falling to her shoulders or head. Did not strike her head. She did not lose consciousness. Patient states she was getting up to go the bathroom and lost her balance. She is having some pain in her low back especially on the left side. No pain in her hips. Allergies and Home Medications Allergies Coded Allergies: No Known Drug Allergies (Verified , 07/18/08) Patient Home Medication List Home Medication List Reviewed: Yes Amlodipine Besylate (Amlodipine Besylate) 5 Mg Tablet, 5 MG PO DAILY, (Reported) Entered as Reported by: FELIX KOO on 07/16/181847 Atenolol (Atenolol) 50 Mg Tablet, 50 MG PO BID, (Reported) Entered as Reported by: FELIX KOO on 07/16/181847 Carbamazepine (Tegretol) 200 Mg Tablet, 200 MG PO BID, (Reported) Entered as Reported by: FELIX KOO on 07/16/181847 Loperamide HCl (Imodium A-D) 2 Mg Capsule, 2 MG PO UD PRN for DIARRHEA, (Reported) Entered as Reported by: KALEN MARTINEZ on 07/17/18 1019 Review of Systems Review of Systems Constitutional: No chills, No diaphoresis Eyes: Denies Blindness, Denies Drainage Ears, Nose, Mouth, Throat: denies ear pain, denies nose pain Respiratory: No cough, No phlegm Cardiovascular: No chest pain, No edema Gastrointestinal: No abdominal pain, No nausea, No vomiting Genitourinary: No discharge, No dysuria Musculoskeletal: see HPI, back pain; No joint pain All Other Systems Reviewed Negative Unless Noted: Yes Past Cezttlz-Piqgor-Kaapdr Hx Patient Social History Tobacco Use?: No Use of E-Cig and/or Vaping dev: No Substance use?: No Immunizations Up To Date Tetanus Booster (TDap): Unknown Seasonal Allergies Seasonal Allergies: No Past Medical History Surgeries: Yes (SURGERY FOR TRIGEMINAL NEURALGIA) Tonsillectomy Respiratory: No (FORMER SMOKER) Cardiac: Yes High Cholesterol, Hypertension Neurological: Yes (RIGHT TRIGMENINAL NEURALGIA) Dementia Reproductive Disorders: No Sexually Transmitted Disease: No Genitourinary: Yes UTI-Chronic Gastrointestinal: Yes Gastroesophageal Reflux Musculoskeletal: Yes (POOR BALANCE, FALLS, GENERALIZED WEAKNESS) Endocrine: No HEENT: Yes (RIGHT TRIGEMINAL NEURALGIA) Cancer: No Psychosocial: No Integumentary: No Blood Disorders: No Physical Exam Vital Signs Vital Signs - First Documented 01/05/21 06:50 Temp 36.0 Pulse 69 Resp 20 B/P (MAP) 143/69 (93) Pulse Ox 96 O2 Delivery Room Air Capillary Refill : Less Than 3 Seconds Height, Weight, BMI Height: 5'4.00" Weight: 150lbs. 5.0oz. 68.971058xg; 24.00 BMI Method:Stated General Appearance: WD/WN, no apparent distress HEENT: PERRL/EOMI (4 mm reactive symmetric), TMs normal (Negative for campbell sign), pharynx normal Neck: non-tender, full range of motion, supple, normal inspection Cardiovascular: normal peripheral pulses, regular rate, rhythm Respiratory: no respiratory distress, no accessory muscle use Gastrointestinal: non tender, soft Back: normal inspection, muscle spasm (Left greater than right), vertebral tenderness (Midline tenderness low thoracic through lumbar spine with left predominant paraspinous muscle spasm and tenderness.) Neurologic/Psychiatric: mental tester II-XII nml as tested, no motor/sensory deficits, alert, normal mood/affect, oriented x 3 Skin: normal color, warm/dry [place] Coma Score Best Eye Response: (4) Open Spontaneously Best Verbal Response: (5) Oriented Best Motor Response: (6) Obeys Commands [place] Total: 15 Progress/Results/Core Measures Results/Orders Lab Results Laboratory Tests Test 01/05/21 07:39 Range/Units Glucometer 96 70-110 MG/DL My Orders Orders - NIKKY SEPULVEDA Ct Thoracic/Lumbar Spine Wo (01/05/21 06:58) Accucheck Stat ONCE (01/05/21 07:05) Vital Signs/I&O 01/05/21 06:50 Temp 36.0 Pulse 69 Resp 20 B/P (MAP) 143/69 (93) Pulse Ox 96 O2 Delivery Room Air Blood Pressure Mean: 93 Progress Progress Note : Time: 07:04 Progress Note Patient declined anything for pain. She is denying any other symptoms. Plan to check her blood sugar and CT thoracic lumbar spine. Diagnostic Imaging Diagonstic Imaging: CT Plain Films/CT/US/NM/MRI: other (Thoracolumbar spine) Comments [facility] [place], [place] NAME: LAURA MCCRACKEN [facility] REC#: [id number] PT STATUS: REG ER : 1945 PHYSICIAN: NIKKY SEPULVEDA MD ADMIT DATE: 01/05/21/ER Signed Date of Exam:01/05/21 CT THORACIC/LUMBAR SPINE WO PROCEDURE: CT thoracic and lumbar spine without contrast. TECHNIQUE: Multiple contiguous axial images were obtained through the thoracic and lumbar spine without the use of intravenous contrast. Sagittal and coronal reformations were then performed. All CT scans use one or more of the following dose optimizing techniques: automated exposure control, MA and/or KvP adjustment based on a patient size and exam type, or iterative reconstruction. INDICATION: Fall from standing. Mid and lower back pain. COMPARISON: 09/04/2020. FINDINGS: No acute fracture or dislocation is seen in the thoracic and lumbar spine. There is generalized osteopenia. Exaggerated kyphosis is seen in the thoracic spine. There is stable appearing grade 1 anterolisthesis of L3 on L4 and L4 on L5. Partial osseous fusion of the L5-S1 level is noted. No suspicious focal osseous lesions are seen. No evidence of acute spinal canal stenosis. Degenerative changes are seen in the thoracic and lumbar spine with disc bulges, marginal osteophytes, and facet hypertrophy. These are most prominent at the L3-L4 and L4-L5 levels. The included lung bases demonstrate a small amount of subsegmental atelectasis in the right lung base. Calcified granuloma is seen in the left lung base. The paraspinal soft tissues of the thoracic and lumbar spine are unremarkable. IMPRESSION: 1. No acute fracture or dislocation in the thoracic and lumbar spine. 2. Stable grade 1 anterolisthesis of L3 on L4 and L4 on L5. 3. Generalized osteopenia. Dictated by: Dictated on workstation # [id number] Dict: 01/05/21 08 Trans: 01/05/21 0815 LAURIE [id number] Interpreted by: TRINIDAD MORENO DO Electronically signed by: TRINIDAD MORENO DO 01/05/21 0815 Reviewed: Reviewed by Me Departure Impression Primary Impression: Fall Qualified Codes: W19.XXXA - Unspecified fall, initial encounter Additional Impression: Lumbago Qualified Codes: M54.5 - Low back pain Disposition: 01 HOME, SELF-CARE Condition: Stable Departure-Patient Inst. Decision time for Depature: 08:22 Referrals: CAT RAYMUNDO MD (PCP/Family) Primary Care Physician Patient Instructions: Preventing Falls ED Add. Discharge Instructions: Tylenol 1000 mg every 8 hours as necessary for pain. Topical creams such as icy hot or Biofreeze as necessary for pain. Ice 20 minutes on every 2 hours for the first 2 to 3 days to reduce swelling and pain in the back. Heating pads as necessary for pain. For continued management of symptoms follow-up with primary care. All discharge instructions reviewed with patient and/or family. Voiced understanding. Copy Copies To 1: CAT RYAMUNDO MD, TITUS J Jan 05, 2021 07:05
--- NOTE | 2021-01-05 08:13 | Diagnostic Imaging Report ---
PROCEDURE: CT thoracic and lumbar spine without contrast. TECHNIQUE: Multiple contiguous axial images were obtained through the thoracic and lumbar spine without the use of intravenous contrast. Sagittal and coronal reformations were then performed. All CT scans use one or more of the following dose optimizing techniques: automated exposure control, MA and/or KvP adjustment based on a patient size and exam type, or iterative reconstruction. INDICATION: Fall from standing. Mid and lower back pain. COMPARISON: 09/04/2020. FINDINGS: No acute fracture or dislocation is seen in the thoracic and lumbar spine. There is generalized osteopenia. Exaggerated kyphosis is seen in the thoracic spine. There is stable appearing grade 1 anterolisthesis of L3 on L4 and L4 on L5. Partial osseous fusion of the L5-S1 level is noted. No suspicious focal osseous lesions are seen. No evidence of acute spinal canal stenosis. Degenerative changes are seen in the thoracic and lumbar spine with disc bulges, marginal osteophytes, and facet hypertrophy. These are most prominent at the L3-L4 and L4-L5 levels. The included lung bases demonstrate a small amount of subsegmental atelectasis in the right lung base. Calcified granuloma is seen in the left lung base. The paraspinal soft tissues of the thoracic and lumbar spine are unremarkable. IMPRESSION: 1. No acute fracture or dislocation in the thoracic and lumbar spine. 2. Stable grade 1 anterolisthesis of L3 on L4 and L4 on L5. 3. Generalized osteopenia. Dictated by: Dictated on workstation # [id number]
[2021-01-05 08:52] VITALS: BP 145/71
== END 2021-01-05 09:00 | disposition home or self-care (01) ==
LOC: EDUNIT# 06:47 → ER 06:47
DX: M54.5 Low back pain (principal); I10 Essential (primary) hypertension; F03.90 Unspecified dementia, unspecified severity, without behavioral disturbance, psychotic disturbance, mood disturbance, and anxiety; Z79.899 Other long term (current) drug therapy; W18.30XA Fall on same level, unspecified, initial encounter
CPT/HCPCS: 72128; 72131; 82947

== ENCOUNTER → 2021-01-15 | Outpatient (CLI) | payer MEDICARE, MEDICAID ==
[2021-01-15 21:06] LABS: BASOPHILS % (AUTO) 1 % (0-10); MONOCYTES # (AUTO) 0.9 10^3/uL (0.0-1.0)
[2021-01-15 21:07] LABS: EOSINOPHILS % (AUTO) 1 % (0-10); HEMATOCRIT 39 % (35-52); HEMOGLOBIN 12.4 g/dL (11.5-16.0); LYMPHOCYTES % (AUTO) 15 % (12-44); MEAN CORPUSCULAR HEMOGLOBIN 33 pg (25-34); MEAN CORPUSCULAR HGB CONC 32 g/dL (32-36); MEAN CORPUSCULAR VOLUME 103 fL (80-99); MEAN PLATELET VOLUME 10.2 fL (9.0-12.2); MONOCYTES % (AUTO) 13 % (0-12); NEUTROPHILS # (AUTO) 4.6 10^3/uL (1.8-7.8); NEUTROPHILS % (AUTO) 70 % (42-75); PLATELET COUNT 127 10^3/uL (130-400); WHITE BLOOD COUNT 6.6 10^3/uL (4.3-11.0)
[2021-01-15 21:15] LABS: ALBUMIN 3.4 GM/DL (3.2-4.5); POTASSIUM 3.8 MMOL/L (3.6-5.0)
[2021-01-15 21:17] LABS: TOTAL PROTEIN 6.3 GM/DL (6.4-8.2)
[2021-01-15 21:19] LABS: BILIRUBIN,TOTAL 0.2 MG/DL (0.1-1.0)
[2021-01-15 21:21] LABS: CREATININE SERUM 0.83 MG/DL (0.60-1.30)
== END ==
LOC: LAB 20:52
PROVIDERS: ATTEND Internal Medicine
DX: J11.1 Influenza due to unidentified influenza virus with other respiratory manifestations (principal)
CPT/HCPCS: 36415; 80053; 85025; 87804

== ENCOUNTER 2021-04-01 14:56 | Emergency (ER) | payer MEDICARE, MEDICAID ==
[~2021-04-01] VITALS: Ht 162.5 cm; Wt 63.0 kg
--- NOTE | 2021-04-01 15:04 | ED Trauma-Vehiclar ---
General Chief Complaint: Trauma-Non Activation Stated Complaint: FALL Time Seen by MD: 14:58 Source: patient Exam Limitations: no limitations History of Present Illness Date Seen by Provider: Apr 01, 2021 Time Seen by Provider: 15:06 Initial Comments ER by EMS from [facility], [place] with reports of a witnessed fall. She landed on her back and then struck her head. No loss of consciousness. She complains of pain to her low back. Occurred: just prior to arrival Severity: moderate Injury/Pain Location: back Context: other (fall from standing) Loss of Consciousness: no loss of consciousness Allergies and Home Medications Allergies Coded Allergies: No Known Drug Allergies (Verified , 07/18/08) Patient Home Medication List Home Medication List Reviewed: Yes Amlodipine Besylate (Amlodipine Besylate) 5 Mg Tablet, 5 MG PO DAILY, (Reported) Entered as Reported by: FELIX KOO on 07/16/181847 Atenolol (Atenolol) 50 Mg Tablet, 50 MG PO BID, (Reported) Entered as Reported by: FELIX KOO on 07/16/181847 Carbamazepine (Tegretol) 200 Mg Tablet, 200 MG PO BID, (Reported) Entered as Reported by: FELIX OKO on 07/16/181847 Loperamide HCl (Imodium A-D) 2 Mg Capsule, 2 MG PO UD PRN for DIARRHEA, (Reported) Entered as Reported by: KALEN MARTINEZ on 07/17/18 1019 Review of Systems Review of Systems Constitutional: see HPI Eyes: No Symptoms Reported Ears: No Symptoms Reported Nose: No Symptoms Reported Mouth: No Symptoms Reported Throat: No Symptoms to Report Respiratory: no symptoms reported Cardiovascular: No Symptoms Reported Genitourinary: no symptoms reported Musculoskeletal: see HPI, back pain Skin: no symptoms reported Past Uzdsycw-Hwhzie-Yzpnzm Hx Immunizations Up To Date Tetanus Booster (TDap): Unknown Seasonal Allergies Seasonal Allergies: No Past Medical History Surgeries: Yes (SURGERY FOR TRIGEMINAL NEURALGIA) Tonsillectomy Respiratory: No (FORMER SMOKER) Cardiac: Yes High Cholesterol, Hypertension Neurological: Yes (RIGHT TRIGMENINAL NEURALGIA) Dementia Reproductive Disorders: No Sexually Transmitted Disease: No Genitourinary: Yes UTI-Chronic Gastrointestinal: Yes Gastroesophageal Reflux Musculoskeletal: Yes (POOR BALANCE, FALLS, GENERALIZED WEAKNESS) Endocrine: No HEENT: Yes (RIGHT TRIGEMINAL NEURALGIA) Cancer: No Psychosocial: No Integumentary: No Blood Disorders: No Physical Exam Vital Signs Vital Signs - First Documented 04/01/21 15:00 Temp 36.6 Pulse 66 Resp 18 B/P (MAP) 170/73 (105) Pulse Ox 97 Capillary Refill : Height, Weight, BMI Height: 5'4.00" Weight: 150lbs. 5.0oz. [id number]; 24.00 BMI Method:Stated General Appearance: WD/WN, no apparent distress HEENT: PERRL/EOMI, normal ENT inspection Neck: non-tender, full range of motion Respiratory: no respiratory distress, no accessory muscle use Gastrointestinal: normal bowel sounds, non tender, soft Neurologic/Psychiatric: alert, normal mood/affect, oriented x 3 Skin: normal color, warm/dry [place] Coma Score Best Eye Response: (4) Open Spontaneously Best Verbal Response: (4) Confused Conversation Best Motor Response: (6) Obeys Commands Nura Total: 14 Progress/Results/Core Measures Results/Orders My Orders Orders - SCOTT DILLON APRN Ct Head/Cervical Spine Wo (04/01/21 15:02) Ct Lumbar Spine Wo (04/01/21 15:02) Pelvis (04/01/21 15:02) Tramadol Tablet (Ultram Tablet) (04/01/21 15:15) Medications Given in ED Current Medications Medications Dose Ordered Sig/John Route Start Time Stop Time Status Last Admin Dose Admin Tramadol HCl 50 mg ONCE ONCE PO 04/01/21 15:15 04/01/21 15:16 DC 04/01/21 15:40 50 MG Vital Signs/I&O 04/01/21 15:00 Temp 36.6 Pulse 66 Resp 18 B/P (MAP) 170/73 (105) Pulse Ox 97 Departure Impression Primary Impression: Fall at shelter Disposition: 01 HOME, SELF-CARE Condition: Stable Departure-Patient Inst. Decision time for Depature: 15:48 Referrals: CAT RAYMUNDO MD (PCP/Family) Primary Care Physician Patient Instructions: Preventing Falls ED SCOTT DILLON APRN Apr 01, 2021 15:04
--- NOTE | 2021-04-01 15:32 | Diagnostic Imaging Report ---
PROCEDURE: CT lumbar spine without contrast. TECHNIQUE: Multiple contiguous axial images were obtained through the lumbar spine without the use of intravenous contrast. Sagittal and coronal reformations were then performed. Auto Exposure Controls were utilized during the CT exam to meet ALARA standards for radiation dose reduction. INDICATION: Fall. Low back pain. COMPARISON: 01/05/2021. FINDINGS: No acute fracture or dislocation is seen in the lumbar spine. There is stable grade 1 anterolisthesis of L3 on L4 and L4 on L5. Generalized osteopenia is seen. No suspicious focal osseous lesions are present. Endplate sclerotic changes are visualized at the L2-L3 level. A vacuum disc is seen at the L2-L3 and L4-L5 levels. Degenerative changes are seen in the lumbar spine with disc bulges, marginal osteophytes, and facet hypertrophy. These are greatest at the L3-L4 level with severe spinal canal stenosis. No high density material is seen within the spinal canal. The paraspinal soft tissues are unremarkable. The bilateral SI joints demonstrate normal alignment. IMPRESSION: 1. No acute fracture or dislocation in the lumbar spine. The appearance is stable compared to the prior exam. 2. Stable grade 1 anterolisthesis of L3 on L4 and L4 on L5. 3. Degenerative changes in the lumbar spine, greatest at L3-L4. 4. Generalized osteopenia. Dictated by: Dictated on workstation # [id number]
--- NOTE | 2021-04-01 15:35 | Diagnostic Imaging Report ---
PROCEDURE: CT head and CT cervical spine without contrast. TECHNIQUE: Multiple contiguous axial images were obtained through the brain and cervical spine without the use of intravenous contrast. Sagittal and coronal reformations through the cervical spine were then performed. Auto Exposure Controls were utilized during the CT exam to meet ALARA standards for radiation dose reduction. INDICATION: Fall with injuries to head and neck resulting in pain. CT HEAD: Ventricles and sulci are prominent. There is low-density deep white matter of both hemispheres. No hemorrhage is identified. There is no abnormal mass effect or shift of midline structures. Calvarium is intact. The visualized paranasal sinuses are clear. IMPRESSION: Senescent findings without acute abnormality detected. CT CERVICAL SPINE: There is grade 1 anterolisthesis of C4 on C5. C5-C6 and C6-C7 disc spaces are narrowed with marginal spurring. No acute fractures identified. There is no evidence of paraspinous hematoma. Note is made of carotid artery atherosclerosis. There is a subcutaneous nodule posterior right neck which could represent sebaceous cyst. IMPRESSION: Cervical spondylosis without CT evidence of acute cervical spinal abnormality. Dictated by: Dictated on workstation # [id number]
--- NOTE | 2021-04-01 15:43 | Diagnostic Imaging Report ---
CLINICAL HISTORY: Fall. Left hip pain. COMPARISON: 08/13/2019. TECHNIQUE: A single AP view of the pelvis was obtained. FINDINGS: There is no acute fracture or dislocation of the pelvis and bilateral hips. Alignment is anatomic. Degenerative changes are seen in the left hip with joint space narrowing and marginal osteophytes. A large amount of stool is seen in the colon. IMPRESSION: 1. No acute fracture or dislocation in the pelvis and bilateral hips. 2. Moderate osteoarthritis in the left hip. 3. Large amount of stool in the colon, likely representing constipation. Dictated by: Dictated on workstation # [id number]
[2021-04-01] MEDS ORDERED: KETOROLAC 30 MG/ML VIAL IM ONE (16:30)
[2021-04-01] MEDS ORDERED: ACETAMINOPHEN 500 MG TAB (TYLENOL) PO ONE (16:30)
[2021-04-01 17:57] VITALS: BP 173/80
== END 2021-04-01 17:56 | disposition home or self-care (01) ==
LOC: EDUNIT# 14:56 → ER 14:57
DX: M54.50 Low back pain, unspecified (principal); I10 Essential (primary) hypertension; F03.90 Unspecified dementia, unspecified severity, without behavioral disturbance, psychotic disturbance, mood disturbance, and anxiety; Z87.891 Personal history of nicotine dependence; Z79.899 Other long term (current) drug therapy; W19.XXXA Unspecified fall, initial encounter; Y92.129 Unspecified place in nursing home as the place of occurrence of the external cause
CPT/HCPCS: 70450; 72125; 72131; 72170

== ENCOUNTER → 2021-05-22 | Outpatient (CLI) | payer MEDICARE, MEDICAID ==
--- NOTE | 2021-05-22 12:49 | Diagnostic Imaging Report ---
PROCEDURE: CT cervical spine without contrast. TECHNIQUE: Multiple contiguous axial images were obtained through the cervical spine without the use of intravenous contrast. Sagittal and coronal reformations were then performed. Auto Exposure Controls were utilized during the CT exam to meet ALARA standards for radiation dose reduction. INDICATION: Frequent falls and neck pain. FINDINGS: Curvature of the cervical spine is normal. There is mild anterolisthesis of C3 on C4. There is minimal retrolisthesis of C4 on C5. Significant degenerative disc disease C5-C6 and C6-C7 levels as noted with disc space narrowing and marginal spurring. No fractures are seen. The prevertebral tissues are within normal limits. Odontoid is intact. IMPRESSION: Cervical spondylosis and listhesis, similar to prior study from 04/01/2021. No acute bony abnormality is detected. Dictated by: Dictated on workstation # [id number]
--- NOTE | 2021-05-22 13:04 | Diagnostic Imaging Report ---
PROCEDURE: CT thoracic and lumbar spine without contrast. TECHNIQUE: Multiple contiguous axial images were obtained through the thoracic and lumbar spine without the use of intravenous contrast. Sagittal and coronal reformations were then performed. All CT scans use one or more of the following dose optimizing techniques: automated exposure control, MA and/or KvP adjustment based on a patient size and exam type, or iterative reconstruction. INDICATION: Frequent falls and back pain. CT THORACIC SPINE: There is a slightly accentuated thoracic kyphotic curvature. The vertebral body heights are maintained. No acute compression fracture is detected. There is generalized spondylosis with disc space narrowing and marginal spurring. The paraspinous tissues are unremarkable. IMPRESSION: 1. Thoracic spondylosis. No acute bony abnormality is detected. CT LUMBAR SPINE: Curvature of the lumbar spine is normal. There appears to be sacralization of L5. There is anterolisthesis of L2 on L3 and L3 on L4. There appears to be a superior endplate fracture involving the T12 vertebral body with mild central compression. This does appear to be acute or at least subacute. No retropulsion is seen. There is some sclerosis through the superior endplate of the L3 vertebral body which may indicate a healing fracture. The age of this is indeterminate. No retropulsion is seen. This shows normal stature. Remaining lumbar vertebrae show normal stature. There is generalized spondylosis with vacuum disc noted at all levels. There is multilevel facet arthropathy. Paraspinous tissues are unremarkable. IMPRESSION: 1. There is an acute/subacute superior endplate fracture of the T12 vertebral body with very slight central compression. No retropulsion is seen. 2. Age indeterminate superior endplate fracture of the L3 vertebral body without evidence of retropulsion. MRI may be useful for further evaluation to evaluate acuity of fractures. Dictated by: Dictated on workstation # [id number]
== END ==
LOC: RAD 11:15
PROVIDERS: ATTEND Internal Medicine
DX: M47.812 Spondylosis without myelopathy or radiculopathy, cervical region (principal); M47.814 Spondylosis without myelopathy or radiculopathy, thoracic region; M48.54XA Collapsed vertebra, not elsewhere classified, thoracic region, initial encounter for fracture; M48.56XA Collapsed vertebra, not elsewhere classified, lumbar region, initial encounter for fracture; M43.12 Spondylolisthesis, cervical region; R29.6 Repeated falls
CPT/HCPCS: 72125; 72128; 72131

== ENCOUNTER → 2022-07-10 | Outpatient (CLI) | payer MEDICARE, MEDICAID ==
[2022-07-10 11:39] LABS: HEMOGLOBIN 15.2 g/dL (11.5-16.0)
[2022-07-10 11:41] LABS: BILIRUBIN,URINE NEGATIVE (NEGATIVE); CLARITY,URINE CLOUDY; COLOR,URINE YELLOW; GLUCOSE, URINE (UA) NEGATIVE (NEGATIVE); KETONES,URINE NEGATIVE (NEGATIVE); LEUKOCYTE ESTERASE ,URINE 1+ (NEGATIVE); MEAN PLATELET VOLUME 10.1 fL (9.0-12.2); NITRITE,URINE NEGATIVE (NEGATIVE); PROTEIN,URINE 1+ (NEGATIVE); WHITE BLOOD COUNT 12.5 10^3/uL (4.3-11.0)
[2022-07-10 11:54] LABS: BACTERIA,URINE MODERATE /HPF; RBC,URINE RARE /HPF; WBC,URINE 50-100 /HPF
[2022-07-10 11:57] LABS: ALBUMIN 3.8 GM/DL (3.2-4.5); BILIRUBIN,TOTAL 0.4 MG/DL (0.1-1.0); CALCIUM 9.9 MG/DL (8.5-10.1); CREATININE SERUM 0.81 MG/DL (0.60-1.30); POTASSIUM 3.8 MMOL/L (3.6-5.0); TOTAL PROTEIN 7.7 GM/DL (6.4-8.2)
== END ==
LOC: CVS 11:33
PROVIDERS: ATTEND Internal Medicine
DX: R50.9 Fever, unspecified (principal); R05.9 Cough, unspecified
CPT/HCPCS: 80053; 81000; 85027; 87077; 87088; 87186; 87804